=== PATIENT | female | born 1965 | race Caucasian/White ===

== ENCOUNTER 2021-08-08 07:45 | Emergency (ER) | payer OTHER, MEDICARE ==
[~2021-08-08] VITALS: Ht 160 cm; Wt 57.3 kg
[~2021-08-08 07:45] MED LIST: CARI-433 PO; DEXL60CA3 PO; KRATOM PO; LEMB5TAB PO; METO-384 PO; ONDA4TAB6 PO; PANT20TA18 PO
[2021-08-08] MEDS ORDERED: TRAM50TA2 PO (08:24)
== END 2021-08-08 08:58 | disposition home or self-care (01) ==
LOC: MERGE 07:47 → ER 07:47
DX: M25.511 Pain in right shoulder (principal); Z88.2 Allergy status to sulfonamides; Z79.899 Other long term (current) drug therapy
CPT/HCPCS: 99283

== ENCOUNTER 2021-08-12 07:14 | Emergency (ER) | payer OTHER, MEDICARE ==
[~2021-08-12] VITALS: Ht 160 cm; Wt 46.6 kg
[~2021-08-12 07:14] MED LIST changes: +TRAM50TA2 PO
[2021-08-12 08:21] LABS: BASOPHILS % (AUTO) 0.7 % (0-1); EOSINOPHILS # (AUTO) 0.2 X10'3 (0-0.9); EOSINOPHILS % (AUTO) 7.8 % (0-6); HEMATOCRIT 27.4 % (35.0-45.0); HEMOGLOBIN 9.5 g/dl (12.0-16.0); LYMPHOCYTES # (AUTO) 1.2 X10'3 (1.1-4.8); LYMPHOCYTES % (AUTO) 40.9 % (21-51); MEAN CORPUSCULAR HEMOGLOBIN 33.9 PG (27.0-31.0); MEAN CORPUSCULAR HGB CONC 34.5 g/dL (33.0-36.5); MEAN CORPUSCULAR VOLUME 98.2 FL (78-98); MEAN PLATELET VOLUME 7.4 FL (7.4-10.4); MONOCYTES # (AUTO) 0.3 X10'3 (0-0.9); MONOCYTES % (AUTO) 8.8 % (2-12); NEUTROPHILS # (AUTO) 1.3 X10'3 (1.8-7.7); NEUTROPHILS % (AUTO) 41.8 % (42-75); PLATELET COUNT 89 X10'3 (140-440); RED BLOOD COUNT 2.79 X10'6 (4.20-5.60); RED CELL DISTRIBUTION WIDTH 12.9 % (11.5-14.5)
[2021-08-12 08:27] LABS: D-DIMER 2.05 MG/L FEU (0-0.50)
[2021-08-12 08:38] LABS: ALANINE AMINOTRANSFERASE 37 U/L (12-78); ALBUMIN 2.2 G/DL (3.4-5.0); ALKALINE PHOSPHATASE 164 IU/L (46-116); ANION GAP 6 (8-16); ASPARTATE AMINO TRANSFERASE 83 U/L (10-37); BLOOD UREA NITROGEN 14 MG/DL (7-18); CALCIUM 8.4 MG/DL (8.5-10.1); CHLORIDE 103 MMOL/L (99-107); POTASSIUM 3.8 MMOL/L (3.5-5.1); SODIUM 134 MMOL/L (135-145); TOTAL CARBON DIOXIDE 25.4 MMOL/L (24-32); eGFR 57 ML/MIN
[2021-08-12 08:49] LABS: ALBUMIN/GLOBULIN RATIO 0.3 (1.1-1.5); GLUCOSE 93 MG/DL (70-104); TOTAL PROTEIN 8.8 G/DL (6.4-8.2)
[2021-08-12] MEDS ORDERED: iohexol 350MG/ML 100ml bottle IV ONE (09:53)
[2021-08-12 10:53] LABS: ANISOCYTOSIS 1+; PLATELET ESTIMATE DECREASED; TOTAL CELLS COUNTED 100
--- NOTE | 2021-08-12 11:12 | NUR ---
up to use restroom.
[2021-08-12] MEDS ORDERED: TRAM50TA2 PO (11:37)
[2021-08-12 11:49] VITALS: BP 127/72
== END 2021-08-12 11:55 | disposition home or self-care (01) ==
LOC: MERGE 07:14 → ER 07:14
DX: R07.89 Other chest pain (principal); R06.02 Shortness of breath; Z98.890 Other specified postprocedural states; Z72.89 Other problems related to lifestyle; Z88.2 Allergy status to sulfonamides; Z79.899 Other long term (current) drug therapy
CPT/HCPCS: 36415; 71045; 71250; 80053; 84145; 84484; 85007; 85025; 85379; 93005; 99285; Q9967

== ENCOUNTER 2021-09-16 09:15 | Day surgery (SDC) | payer OTHER, MEDICARE ==
[~2021-09-16] VITALS: Ht 160 cm; Wt 60.5 kg
[~2021-09-16 09:15] MED LIST changes: -TRAM50TA2 PO
[2021-09-16] MEDS ORDERED: albumin 25% 100mL bottle x 1 IV PRN (09:40)
[2021-09-16] MEDS ORDERED: normal saline 1000ml 1,000 ML IV PRN (09:40)
[2021-09-16 09:45] VITALS: BP 110/76
[2021-09-16] MEDS ORDERED: SUCR1TAB34 PO (09:55)
[2021-09-16] MEDS ORDERED: HYDR50CA5 PO (09:55)
[2021-09-16] MEDS ORDERED: DICL20GE TOP (09:55)
[2021-09-16] MEDS ORDERED: ESCI20TA16 PO (09:55)
[2021-09-16] MEDS ORDERED: ONDA-103 PO (09:55)
[2021-09-16] MEDS ORDERED: SPIR50TA PO (09:55)
[2021-09-16] MEDS ORDERED: TRAM50TA2 PO (09:55)
[2021-09-16] MEDS ORDERED: RISP1TAB98 PO (09:55)
[2021-09-16] MEDS ORDERED: ketorolac trometh. 30mg/ml inj. IM ONE (10:10)
--- NOTE | 2021-09-16 10:10 | NUR ---
Dylan Gray RN in to see patient and discuss procedure. Labs to be drawn prior to procedure. Patient requesting pain medication. Patient would also like for us to speak to [facility] regarding pain medication.
[2021-09-16] MEDS ORDERED: traMADol 50MG tablet PO ONE (10:15)
--- NOTE | 2021-09-16 10:35 | NUR ---
Called [facility] and spoke with Aspen CLOUD who spoke wtih Dr. Castillo. The doctor asked what pain medication the patient usually took. Patient told me she takes tramadol. Aspen CLOUD said that Dr. Castillo would be sending a prescription for pain medication to her pharmacy, [facility].
[2021-09-16 10:42] LABS: BASOPHILS % (AUTO) 0.9 % (0-1); EOSINOPHILS # (AUTO) 0.1 X10'3 (0-0.9); EOSINOPHILS % (AUTO) 3.7 % (0-6); HEMATOCRIT 26.3 % (35.0-45.0); LYMPHOCYTES # (AUTO) 0.7 X10'3 (1.1-4.8); LYMPHOCYTES % (AUTO) 37.6 % (21-51); MEAN CORPUSCULAR HEMOGLOBIN 31.1 PG (27.0-31.0); MEAN CORPUSCULAR HGB CONC 34.3 g/dL (33.0-36.5); MEAN CORPUSCULAR VOLUME 90.9 FL (78-98); MEAN PLATELET VOLUME 7.2 FL (7.4-10.4); MONOCYTES # (AUTO) 0.2 X10'3 (0-0.9); MONOCYTES % (AUTO) 10.8 % (2-12); NEUTROPHILS # (AUTO) 0.9 X10'3 (1.8-7.7); PLATELET COUNT 58 X10'3 (140-440)
[2021-09-16 10:59] LABS: PLATELET ESTIMATE DECREASED; TOTAL CELLS COUNTED 100
[2021-09-16 11:00] LABS: ANISOCYTOSIS 1+
--- NOTE | 2021-09-16 11:10 | NUR ---
Lab results back and Christiano Gray RN notified.
[2021-09-16 11:25] VITALS: BP 124/74
[2021-09-16 11:45] VITALS: BP 118/75
[2021-09-16 12:00] VITALS: BP 122/77
[2021-09-16 12:15] VITALS: BP 122/70
--- NOTE | 2021-09-16 12:35 | NUR ---
Reviewed discharge instructions with patient. All questions answered. Band-aid to right posterior back CDI. VSS. No complaints of worsening SOB or chest pain. Tramadol given earlier has helped, per patient. Her prescription from Dr. Castillo will be available tomorrow, per patient's daughter, d/t patient recently picking up a prescription a short time ago. Patient aware. Patient taken out to daughter's car in w/c. All belongings with patient on d/c.
== END 2021-09-16 12:35 | disposition home or self-care (01) ==
LOC: SSTAY O 09:15
PROVIDERS: ATTEND Preventive Medicine Aerospace Medicine
DX: J90 Pleural effusion, not elsewhere classified (principal); K70.10 Alcoholic hepatitis without ascites; K72.90 Hepatic failure, unspecified without coma; D69.6 Thrombocytopenia, unspecified; D68.9 Coagulation defect, unspecified; Z72.89 Other problems related to lifestyle; K74.60 Unspecified cirrhosis of liver; N18.6 End stage renal disease; M81.0 Age-related osteoporosis without current pathological fracture; Z98.890 Other specified postprocedural states; Z90.49 Acquired absence of other specified parts of digestive tract; Z88.2 Allergy status to sulfonamides; Z79.899 Other long term (current) drug therapy; F12.90 Cannabis use, unspecified, uncomplicated
CPT/HCPCS: 32555; 36415; 85007; 85025; 85610

== ENCOUNTER 2021-10-09 11:40 | Emergency (ER) | payer OTHER, MEDICARE ==
[~2021-10-09] VITALS: Ht 160 cm; Wt 56.8 kg
[~2021-10-09 11:40] MED LIST changes: -CARI-433 PO; -DEXL60CA3 PO; +DICL20GE TOP; +ESCI20TA16 PO; +HYDR50CA5 PO; -KRATOM PO; -LEMB5TAB PO; +ONDA-103 PO; -ONDA4TAB6 PO; +RISP1TAB98 PO; +SPIR50TA PO; +SUCR1TAB34 PO; +TRAM50TA2 PO
--- NOTE | 2021-10-09 12:25 | NUR ---
Patient states left upper back/chest pain that was previously intermittent is increasingly frequent and 7/10 pain; PA notified.
[2021-10-09 13:18] LABS: BASOPHILS % (AUTO) 0.8 % (0-1); EOSINOPHILS % (AUTO) 2.2 % (0-6); HEMATOCRIT 27.4 % (35.0-45.0); HEMOGLOBIN 9.2 g/dl (12.0-16.0); LYMPHOCYTES # (AUTO) 0.2 X10'3 (1.1-4.8); LYMPHOCYTES % (AUTO) 17.1 % (21-51); MEAN CORPUSCULAR HEMOGLOBIN 30.5 PG (27.0-31.0); MEAN CORPUSCULAR HGB CONC 33.6 g/dL (33.0-36.5); MEAN CORPUSCULAR VOLUME 90.9 FL (78-98); MEAN PLATELET VOLUME 6.9 FL (7.4-10.4); MONOCYTES # (AUTO) 0.2 X10'3 (0-0.9); MONOCYTES % (AUTO) 16.6 % (2-12); NEUTROPHILS # (AUTO) 0.6 X10'3 (1.8-7.7); NEUTROPHILS % (AUTO) 63.3 % (42-75); RED BLOOD COUNT 3.01 X10'6 (4.20-5.60); RED CELL DISTRIBUTION WIDTH 14.9 % (11.5-14.5)
[2021-10-09 13:46] LABS: ALANINE AMINOTRANSFERASE 31 U/L (12-78); ALBUMIN 2.6 G/DL (3.4-5.0); ALKALINE PHOSPHATASE 117 IU/L (46-116); ANION GAP 5 (8-16); ASPARTATE AMINO TRANSFERASE 73 U/L (10-37); BILIRUBIN,TOTAL 5.2 MG/DL (0.1-1.0); BLOOD UREA NITROGEN 12 MG/DL (7-18); BUN/CREATININE RATIO 11.4 (6.6-38.0); CALCIUM 8.5 MG/DL (8.5-10.1); CHLORIDE 100 MMOL/L (99-107); CREATININE 1.05 MG/DL (0.40-0.90); POTASSIUM 3.4 MMOL/L (3.5-5.1); SODIUM 134 MMOL/L (135-145); TOTAL CARBON DIOXIDE 28.7 MMOL/L (24-32); eGFR 54 ML/MIN
[2021-10-09 13:47] LABS: PLATELET COUNT 48 X10'3 (140-440)
[2021-10-09 14:01] LABS: ALBUMIN/GLOBULIN RATIO 0.5 (1.1-1.5); GLUCOSE 97 MG/DL (70-104); TOTAL PROTEIN 7.6 G/DL (6.4-8.2)
[2021-10-09] MEDS ORDERED: LIDOcaine 1% W/epiNEPHrine 1:100,000 20ml vial IJ ONE (14:15)
[2021-10-09 14:28] VITALS: BP 112/72
[2021-10-09 14:43] LABS: APTT 33 SECONDS (22-32)
[2021-10-09] MEDS ORDERED: fentaNYL/PF 50MCG/1 ML 2ML syringe IV ONE (15:05)
[2021-10-09] MEDS ORDERED: ondansetron/PF 4mg/2ml inj IV ONE (15:05)
[2021-10-09] MEDS ORDERED: CASIRIVIMAB/IMDEVIMAB inject. 10 ML in normal saline 100ml IV soln 100 ML IV ONE (15:30)
[2021-10-09] MEDS ORDERED: morphine 4 MG/ML inj SYRINge IV ONE (15:55)
== END 2021-10-09 17:57 | disposition home or self-care (01) ==
LOC: ER 11:41
DX: U07.1 COVID-19 (principal); J90 Pleural effusion, not elsewhere classified; Z88.2 Allergy status to sulfonamides; Z79.899 Other long term (current) drug therapy
CPT/HCPCS: 36415; 71045; 80053; 83605; 84145; 85025; 85610; 85730; 87040; 87635; 93005; 96374; 96375; 99285; C9803; J2270; J2405; J3010; J3490; M0243; Q0244

== ENCOUNTER 2021-10-28 08:08 | Day surgery (SDC) | payer OTHER, MEDICARE ==
[~2021-10-28] VITALS: Ht 160 cm; Wt 64.0 kg
[~2021-10-28 08:08] MED LIST changes: +BUPIVACAINE liposomal/PF 13.3 MG/ML vial IM ONE; +BUPIVAcaine/PF 2.5mg/ml (0.25%) 10ml vial ONE
[2021-10-28 08:30] VITALS: BP 94/61
[2021-10-28] MEDS ORDERED: albumin 25% 100mL bottle x 1 IV PRN (08:40)
[2021-10-28] MEDS ORDERED: LIDOcaine 1% 30ml preserv. free vial IJ STA (08:45)
[2021-10-28] MEDS ORDERED: FURO-149 PO (08:54)
[2021-10-28 09:48] LABS: BASOPHILS % (AUTO) 0.6 % (0-1); EOSINOPHILS # (AUTO) 0.1 X10'3 (0-0.9); EOSINOPHILS % (AUTO) 4.6 % (0-6); HEMATOCRIT 25.4 % (35.0-45.0); HEMOGLOBIN 8.3 g/dl (12.0-16.0); LYMPHOCYTES # (AUTO) 0.6 X10'3 (1.1-4.8); LYMPHOCYTES % (AUTO) 37.1 % (21-51); MEAN CORPUSCULAR HEMOGLOBIN 29.7 PG (27.0-31.0); MEAN CORPUSCULAR HGB CONC 32.7 g/dL (33.0-36.5); MEAN CORPUSCULAR VOLUME 90.8 FL (78-98); MEAN PLATELET VOLUME 7.3 FL (7.4-10.4); MONOCYTES # (AUTO) 0.2 X10'3 (0-0.9); MONOCYTES % (AUTO) 10.9 % (2-12); NEUTROPHILS # (AUTO) 0.8 X10'3 (1.8-7.7); NEUTROPHILS % (AUTO) 46.8 % (42-75); PLATELET COUNT 73 X10'3 (140-440); RED CELL DISTRIBUTION WIDTH 16.1 % (11.5-14.5); WHITE BLOOD COUNT 1.7 X10'3 (4.5-11.0)
[2021-10-28 10:31] VITALS: BP 110/73
[2021-10-28 10:33] LABS: ANISOCYTOSIS 1+; PLATELET ESTIMATE DECREASED; TOTAL CELLS COUNTED 100
[2021-10-28 10:45] VITALS: BP_SYST 110; BP_SYST 95; BP_DIAS 54; BP_DIAS 73
[2021-10-28 11:01] VITALS: BP 113/54
[2021-10-28 11:13] VITALS: BP 107/61
--- NOTE | 2021-10-28 14:00 | NUR ---
Dr. Castillo, primary physician was called and orders received for body fluids and blood sent to lab for testing. Addendum: 10/28/21 at 1640 by Yvan Bull RN Amended: Links added.
[2021-10-28 14:44] LABS: ALANINE AMINOTRANSFERASE 30 U/L (12-78); ALBUMIN 2.3 G/DL (3.4-5.0); ALBUMIN/GLOBULIN RATIO 0.5 (1.1-1.5); ALKALINE PHOSPHATASE 158 IU/L (46-116); ANION GAP 9 (8-16); ASPARTATE AMINO TRANSFERASE 55 U/L (10-37); BLOOD UREA NITROGEN 22 MG/DL (7-18); CALCIUM 7.6 MG/DL (8.5-10.1); CHLORIDE 101 MMOL/L (99-107); CREATININE 1.22 MG/DL (0.40-0.90); GLUCOSE 79 MG/DL (70-104); LACTATE DEHYDROGENASE 140 U/L (81-234); POTASSIUM 3.9 MMOL/L (3.5-5.1); SODIUM 138 MMOL/L (135-145); TOTAL CARBON DIOXIDE 28.3 MMOL/L (24-32); TOTAL PROTEIN 6.9 G/DL (6.4-8.2); eGFR 46 ML/MIN
[2021-10-28 15:29] LABS: AMYLASE,BODY FLUID 40 U/L; GLUCOSE,BODY FLUID 106 MG/DL; LDH,BODY FLUID 29 U/L; TRIGLYCERIDES,BODY FLUID 37 MG/DL
[2021-10-28 15:30] LABS: TOTAL PROTEIN,BODY FLUID < 2.0 G/DL
[2021-10-28 16:05] LABS: BFAPPEAR CLEAR
[2021-10-28 16:08] LABS: BF RBC COUNT 235 /CU MM; BF WBC COUNT 104 /CU MM (0-1000); BFCOLOR YELLOW; BFVOLUME 50 ML; LYMPHOCYTES,BODY FLUID 86 %; MONOCYTES,BODY FLUID 14 %; NEUTROPHILS,BODY FLUID 0 %
== END 2021-10-28 11:15 | disposition home or self-care (01) ==
LOC: SSTAY O 08:08
PROVIDERS: ATTEND Radiology Vascular & Interventional Radiology
DX: J90 Pleural effusion, not elsewhere classified (principal); D69.6 Thrombocytopenia, unspecified; D68.9 Coagulation defect, unspecified; K74.60 Unspecified cirrhosis of liver; K72.10 Chronic hepatic failure without coma; N18.6 End stage renal disease; K70.10 Alcoholic hepatitis without ascites; Z86.16 Personal history of COVID-19; Z90.49 Acquired absence of other specified parts of digestive tract; Z98.890 Other specified postprocedural states; Z72.89 Other problems related to lifestyle; F12.90 Cannabis use, unspecified, uncomplicated; Z88.2 Allergy status to sulfonamides; Z79.899 Other long term (current) drug therapy
CPT/HCPCS: 32555; 36415; 71045; 80053; 82150; 82570; 82945; 83615; 84157; 84478; 85025; 85610; 87070; 87075; 89051; C9290; J3490; 85007

== ENCOUNTER 2021-11-19 07:56 | Day surgery (SDC) | payer OTHER, MEDICARE ==
[~2021-11-19] VITALS: Ht 160 cm; Wt 62.7 kg
[~2021-11-19 07:56] MED LIST changes: -BUPIVACAINE liposomal/PF 13.3 MG/ML vial IM ONE; -BUPIVAcaine/PF 2.5mg/ml (0.25%) 10ml vial ONE; -DICL20GE TOP; +FURO-149 PO
[2021-11-19] MEDS ORDERED: albumin 25% 100mL bottle x 1 IV PRN (08:15)
[2021-11-19 08:16] VITALS: BP 124/82
[2021-11-19] MEDS ORDERED: OLAN10TA3 PO (08:19)
[2021-11-19] MEDS ORDERED: FOLI0.4T6 PO (08:19)
[2021-11-19] MEDS ORDERED: Vitamin B-1 PO (08:21)
[2021-11-19 08:43] LABS: BASOPHILS % (AUTO) 0.9 % (0-1); EOSINOPHILS # (AUTO) 0.1 X10'3 (0-0.9); EOSINOPHILS % (AUTO) 5.6 % (0-6); HEMOGLOBIN 9.4 g/dl (12.0-16.0); LYMPHOCYTES # (AUTO) 0.8 X10'3 (1.1-4.8); LYMPHOCYTES % (AUTO) 36.2 % (21-51); MEAN CORPUSCULAR HEMOGLOBIN 28.8 PG (27.0-31.0); MEAN CORPUSCULAR HGB CONC 32.3 g/dL (33.0-36.5); MEAN CORPUSCULAR VOLUME 88.9 FL (78-98); MEAN PLATELET VOLUME 7.4 FL (7.4-10.4); MONOCYTES # (AUTO) 0.2 X10'3 (0-0.9); MONOCYTES % (AUTO) 10.1 % (2-12); NEUTROPHILS # (AUTO) 1.1 X10'3 (1.8-7.7); NEUTROPHILS % (AUTO) 47.2 % (42-75); PLATELET COUNT 85 X10'3 (140-440); RED BLOOD COUNT 3.26 X10'6 (4.20-5.60); RED CELL DISTRIBUTION WIDTH 16.6 % (11.5-14.5); WHITE BLOOD COUNT 2.2 X10'3 (4.5-11.0)
[2021-11-19 09:21] VITALS: BP 122/82
[2021-11-19 09:25] LABS: PLATELET ESTIMATE DECREASED; TOTAL CELLS COUNTED 100
[2021-11-19 09:26] LABS: ANISOCYTOSIS 1+; POLYCHROMASIA 1+; TEAR DROP CELLS 1+
[2021-11-19 09:27] LABS: HYPOCHROMASIA 1+
[2021-11-19 09:35] VITALS: BP 115/57
[2021-11-19 09:50] VITALS: BP 114/66
[2021-11-19 10:24] VITALS: BP 114/53
== END 2021-11-19 10:32 | disposition home or self-care (01) ==
LOC: SSTAY O 07:56
PROVIDERS: ATTEND Radiology Vascular & Interventional Radiology
DX: J90 Pleural effusion, not elsewhere classified (principal); D69.6 Thrombocytopenia, unspecified; D68.9 Coagulation defect, unspecified; N18.6 End stage renal disease; M81.0 Age-related osteoporosis without current pathological fracture; K70.10 Alcoholic hepatitis without ascites; Z88.2 Allergy status to sulfonamides; K74.60 Unspecified cirrhosis of liver; Z90.49 Acquired absence of other specified parts of digestive tract; Z98.890 Other specified postprocedural states; F12.90 Cannabis use, unspecified, uncomplicated; Z79.899 Other long term (current) drug therapy; Z72.89 Other problems related to lifestyle
CPT/HCPCS: 32555; 85007; 85025; 85610

== ENCOUNTER 2021-12-23 07:25 | Day surgery (SDC) | payer OTHER, MEDICARE ==
[~2021-12-23] VITALS: Ht 160 cm; Wt 67.5 kg
[~2021-12-23 07:25] MED LIST changes: +FOLI0.4T6 PO; +OLAN10TA3 PO; -RISP1TAB98 PO; +Vitamin B-1 PO
[2021-12-23] MEDS ORDERED: albumin 25% 100mL bottle x 1 IV PRN (07:40)
[2021-12-23 08:00] VITALS: BP 109/72
[2021-12-23] MEDS ORDERED: LIDOcaine 1%/PF 5ML 10 MG/ML VIAL IJ ONE (08:20)
[2021-12-23 08:43] LABS: BASOPHILS % (AUTO) 0.7 % (0-1); EOSINOPHILS # (AUTO) 0.1 X10'3 (0-0.9); EOSINOPHILS % (AUTO) 2.6 % (0-6); HEMATOCRIT 27.2 % (35.0-45.0); HEMOGLOBIN 8.8 g/dl (12.0-16.0); LYMPHOCYTES # (AUTO) 0.8 X10'3 (1.1-4.8); LYMPHOCYTES % (AUTO) 34.7 % (21-51); MEAN CORPUSCULAR HEMOGLOBIN 29.4 PG (27.0-31.0); MEAN CORPUSCULAR HGB CONC 32.3 g/dL (33.0-36.5); MEAN PLATELET VOLUME 7.4 FL (7.4-10.4); MONOCYTES # (AUTO) 0.3 X10'3 (0-0.9); NEUTROPHILS # (AUTO) 1.2 X10'3 (1.8-7.7); PLATELET COUNT 80 X10'3 (140-440); RED BLOOD COUNT 2.98 X10'6 (4.20-5.60); RED CELL DISTRIBUTION WIDTH 17.9 % (11.5-14.5); WHITE BLOOD COUNT 2.3 X10'3 (4.5-11.0)
[2021-12-23 09:03] LABS: ANISOCYTOSIS 1+; PLATELET ESTIMATE DECREASED; POIKILOCYTOSIS FEW; TOTAL CELLS COUNTED 100
[2021-12-23 09:45] VITALS: BP 119/64
[2021-12-23 10:00] VITALS: BP 118/80
[2021-12-23 10:15] VITALS: BP 100/60
[2021-12-23 10:30] VITALS: BP 105/64
[2021-12-24] MEDS ORDERED: HYDR-3973 PO (09:31)
[2021-12-24] MEDS ORDERED: HYDR-3972 PO (11:54)
== END 2021-12-23 10:30 | disposition home or self-care (01) ==
LOC: SSTAY O 07:25
PROVIDERS: ATTEND Preventive Medicine Aerospace Medicine
DX: J90 Pleural effusion, not elsewhere classified (principal); D69.6 Thrombocytopenia, unspecified; D68.9 Coagulation defect, unspecified; K74.60 Unspecified cirrhosis of liver; M81.0 Age-related osteoporosis without current pathological fracture; K70.10 Alcoholic hepatitis without ascites; K72.10 Chronic hepatic failure without coma; F12.90 Cannabis use, unspecified, uncomplicated; Z90.49 Acquired absence of other specified parts of digestive tract; Z98.890 Other specified postprocedural states; Z88.2 Allergy status to sulfonamides; Z72.89 Other problems related to lifestyle; Z79.899 Other long term (current) drug therapy
CPT/HCPCS: 32555; 36415; 85025; 85610; J3490; 85007

== ENCOUNTER 2021-12-24 08:35 | Emergency (ER) | payer MEDICARE, OTHER ==
[~2021-12-24] VITALS: Ht 160 cm; Wt 65.9 kg
[2021-12-24] MEDS ORDERED: HYDR-3973 PO (09:31)
[2021-12-24 10:00] VITALS: BP 100/71
[2021-12-24] MEDS ORDERED: HYDR-3972 PO (11:54)
== END 2021-12-24 10:02 | disposition home or self-care (01) ==
LOC: ER 08:37
DX: R07.81 Pleurodynia (principal); K74.60 Unspecified cirrhosis of liver; J90 Pleural effusion, not elsewhere classified; Z98.890 Other specified postprocedural states; Z88.2 Allergy status to sulfonamides; Z79.899 Other long term (current) drug therapy
CPT/HCPCS: 71045; 99283

== ENCOUNTER 2022-01-01 23:40 | Inpatient (IN) | payer BC, MEDICARE, OTHER ==
[~2022-01-01] VITALS: Ht 160 cm; Wt 63.3 kg
[~2022-01-01 23:40] MED LIST changes: +HYDR-3973 PO
[2022-01-02] VITALS (18 sets, daily range): BP systolic 84–109; BP diastolic 48–69
[2022-01-02] MEDS ORDERED: normal saline 1000ml 1,000 ML IV ONE (00:35)
[2022-01-02 01:13] LABS: CLARITY,URINE CLOUDY (Clear); COLOR,URINE YELLOW (Yellow); GLUCOSE, URINE NEGATIVE (Neg); KETONES,URINE 15 mg/dl (Neg); LEUKOCYTE ESTERASE ,URINE MODERATE (Neg); OCCULT BLOOD,URINE MODERATE (Neg); PROTEIN,URINE 100 mg/dl (Neg)
[2022-01-02] MEDS ORDERED: iohexol 300mg/ml 100ml inj. ONE (01:13)
--- NOTE | 2022-01-02 01:13 | NUR ---
report given to Harper
[2022-01-02 01:18] LABS: BASOPHILS % (AUTO) 0.2 % (0-1); EOSINOPHILS % (AUTO) 1.3 % (0-6); HEMATOCRIT 24.2 % (35.0-45.0); HEMOGLOBIN 7.8 g/dl (12.0-16.0); LYMPHOCYTES % (AUTO) 1.2 % (21-51); MEAN CORPUSCULAR HGB CONC 32.2 g/dL (33.0-36.5); MEAN CORPUSCULAR VOLUME 93.2 FL (78-98); MEAN PLATELET VOLUME 7.4 FL (7.4-10.4); MONOCYTES # (AUTO) 0.2 X10'3 (0-0.9); MONOCYTES % (AUTO) 7.3 % (2-12); NEUTROPHILS # (AUTO) 2.9 X10'3 (1.8-7.7); PLATELET COUNT 51 X10'3 (140-440); RED CELL DISTRIBUTION WIDTH 17.7 % (11.5-14.5); WHITE BLOOD COUNT 3.2 X10'3 (4.5-11.0)
[2022-01-02 01:21] LABS: UA COLLECTION TYPE NON-SPECIFIED
[2022-01-02 01:22] LABS: NITRITES, URINE NEGATIVE (Neg)
[2022-01-02 01:23] LABS: BACTERIA,URINE 1+ /HPF (Neg); MUCUS STRANDS FEW /LPF (Neg); SQUAMOUS EPITHELIAL CELL,UR MODERATE /LPF (FEW); WBC,URINE 30-50 /HPF (0-4)
[2022-01-02 01:25] LABS: APTT 34 SECONDS (22-32)
[2022-01-02 01:30] LABS: ALANINE AMINOTRANSFERASE 22 U/L (12-78); ALBUMIN/GLOBULIN RATIO 0.5 (1.1-1.5); ALKALINE PHOSPHATASE 79 IU/L (46-116); ANION GAP 11 (8-16); ASPARTATE AMINO TRANSFERASE 61 U/L (10-37); BILIRUBIN,TOTAL 3.4 MG/DL (0.1-1.0); BLOOD UREA NITROGEN 35 MG/DL (7-18); BUN/CREATININE RATIO 13.7 (6.6-38.0); CALCIUM 7.7 MG/DL (8.5-10.1); CHLORIDE 100 MMOL/L (99-107); CREATININE 2.55 MG/DL (0.40-0.90); GLUCOSE 93 MG/DL (70-104); POTASSIUM 4.8 MMOL/L (3.5-5.1); SODIUM 131 MMOL/L (135-145); TOTAL CARBON DIOXIDE 20.3 MMOL/L (24-32); TOTAL PROTEIN 6.1 G/DL (6.4-8.2); eGFR 19 ML/MIN
[2022-01-02] MEDS ORDERED: morphine 4 MG/ML inj SYRINge IV ONE (01:30)
[2022-01-02] MEDS ORDERED: ondansetron/PF 4mg/2ml inj IV ONE (01:30)
[2022-01-02] MEDS ORDERED: cefTRIAXone 1g/NS 100ml IVPB 100 ML IV ONE (01:55)
[2022-01-02] MEDS ORDERED: albumin (human) 25% 100 ML IV solution IV ONE ×3 (04:05→04:45)
[2022-01-02] MEDS ORDERED: fentaNYL/PF 50MCG/1 ML 2ML syringe IV ONE (04:35)
[2022-01-02] MEDS ORDERED: potassium Cl 20 mEq SR tablet PO PRN ×2 (04:35)
[2022-01-02] MEDS ORDERED: NOREPINEPHRINE BITARTRATE/D5W 250 ML IV PRN (05:30)
[2022-01-02] MEDS ORDERED: NORepinephrine 8mg/ 250ml NS 250 ML IV PRN (05:35)
[2022-01-02] MEDS: morphine 4 MG/ML inj SYRINge IV PRN (05:49)
[2022-01-02] MEDS ORDERED: pantoprazole 40MG/NS 100ML BAG 100 ML IV ONE (06:00)
[2022-01-02] MEDS: normal saline 1000ml 1,000 ML IV SCH ×3 (06:55→19:51)
[2022-01-02] MEDS: K and/or MAG REPLACEMENT MC SCH (06:56)
--- NOTE | 2022-01-02 07:00 | NUR ---
Pt is awake, alert, and c/o back pain. Decreased lung sound R posterior. On Levophed gtt, protonix gtt, and NS @ 75ml/hour. Whitehead draining orange/brown urine.
--- NOTE | 2022-01-02 07:17 | NUR ---
Report given to AI Brody in ICU.
[2022-01-02] MEDS ORDERED: heparin, porcine 5000 units/ml vial SQ SCH (08:00)
[2022-01-02] MEDS ORDERED: albumin (Human) 5% 250ml 500 ML IV ONE (08:25)
[2022-01-02] MEDS ORDERED: albumin (Human) 5% 250ml 250 ML IV ONE ×2 (08:25)
[2022-01-02] MEDS: ondansetron/PF 4mg/2ml inj IV PRN (09:43)
[2022-01-02] MEDS: morphine 2 MG/ML inj. syringe IV PRN ×2 (10:56→19:46)
[2022-01-02] MEDS ORDERED: NORepinephrine 8mg/ 250ml NS 250 ML IV ONE (15:14)
[2022-01-02] MEDS ORDERED: THIA100T66 PO (15:50)
[2022-01-02] MEDS ORDERED: SPIR100T5 PO (15:52)
[2022-01-02] MEDS ORDERED: OLAN5TAB75 PO (15:52)
[2022-01-02] MEDS ORDERED: ALBU17AE26 PO (15:52)
[2022-01-02] MEDS ORDERED: MAGN400T56 PO (15:52)
--- NOTE | 2022-01-02 18:35 | NUR ---
Received report on a 56 year old female admitted with low blood pressure, etoh, epigastric pain,vomiting and fever. Pt has a history of sepsis, and failed hernia repair. CT showed enlarged liver and spleen, cirrhotic liver, hiatal hernia, portal Hypertension, abdominal varices and splenomegaly. Pt is resting in bed on a Levophed drip to keep MAP greater then 60, Whitehead catheter in place to gravity. Pt denies feelings of SOB, or nausea, no s/sx of bleeding, pt denies numbness and tingling pt able to speak in complete sentences without difficulties. Call placed to Dr Ramirez regarding pt diet, plt levels and restarting pt sleep medication. new orders received to hold tonight dose of Hepin, pt to remain NPO, amylase and lipase levels ordered for in the morning and Dr Ramirez does not what her sleeping medication restarted. Pt up to bedside commode with assistance returned to bed without difficulties. Pt remains in sinus, distal pulses palatable bilateral, pt medicated for pain as needed
[2022-01-02] MEDS ORDERED: sucralfate 1gm/10ml UD suspension PO ONE (20:00)
[2022-01-02] MEDS ORDERED: sucralfate 1 gm tablet PO ONE (20:00)
[2022-01-03] VITALS (23 sets, daily range): BP systolic 88–118; BP diastolic 45–67
[2022-01-03] MEDS: morphine 4 MG/ML inj SYRINge IV PRN (00:08)
--- NOTE | 2022-01-03 00:30 | NUR ---
no changes in status noted,
[2022-01-03] MEDS ORDERED: cefTRIAXone 1g/NS 100ml IVPB 100 ML IV SCH (01:00)
[2022-01-03] MEDS: NORepinephrine 8mg/ 250ml NS 250 ML IV SCH ×2 (01:14→22:14)
[2022-01-03 01:49] LABS: BASOPHILS % (AUTO) 0.2 % (0-1); EOSINOPHILS # (AUTO) 0.2 X10'3 (0-0.9); EOSINOPHILS % (AUTO) 3.4 % (0-6); HEMATOCRIT 24.3 % (35.0-45.0); HEMOGLOBIN 7.9 g/dl (12.0-16.0); LYMPHOCYTES # (AUTO) 0.1 X10'3 (1.1-4.8); LYMPHOCYTES % (AUTO) 2.5 % (21-51); MEAN CORPUSCULAR HEMOGLOBIN 30.5 PG (27.0-31.0); MEAN CORPUSCULAR HGB CONC 32.4 g/dL (33.0-36.5); MEAN CORPUSCULAR VOLUME 94.2 FL (78-98); MEAN PLATELET VOLUME 8.5 FL (7.4-10.4); MONOCYTES # (AUTO) 0.3 X10'3 (0-0.9); MONOCYTES % (AUTO) 5.2 % (2-12); NEUTROPHILS # (AUTO) 5.4 X10'3 (1.8-7.7); NEUTROPHILS % (AUTO) 88.7 % (42-75); PLATELET COUNT 64 X10'3 (140-440); RED BLOOD COUNT 2.58 X10'6 (4.20-5.60); RED CELL DISTRIBUTION WIDTH 18.2 % (11.5-14.5); WHITE BLOOD COUNT 6.1 X10'3 (4.5-11.0)
[2022-01-03 01:55] LABS: ALBUMIN 2.7 G/DL (3.4-5.0); AMYLASE 38 U/L (25-115); ANION GAP 9 (8-16); BLOOD UREA NITROGEN 47 MG/DL (7-18); BUN/CREATININE RATIO 20.8 (6.6-38.0); CALCIUM 7.2 MG/DL (8.5-10.1); CHLORIDE 103 MMOL/L (99-107); CREATININE 2.26 MG/DL (0.40-0.90); GLUCOSE 84 MG/DL (70-104); LIPASE < 50 U/L (73-393); POTASSIUM 4.6 MMOL/L (3.5-5.1); SODIUM 133 MMOL/L (135-145); TOTAL CARBON DIOXIDE 20.6 MMOL/L (24-32); eGFR 22 ML/MIN
--- NOTE | 2022-01-03 06:09 | NUR ---
report given to rec rn plan of care reviewed
[2022-01-03] MEDS: morphine 2 MG/ML inj. syringe IV PRN (07:08)
[2022-01-03] MEDS: multivitamins, therapeutics tablet PO SCH (08:00)
[2022-01-03] MEDS: K and/or MAG REPLACEMENT MC SCH (08:00)
[2022-01-03] MEDS: pantoprazole 40MG/NS 100ML BAG 100 ML IV SCH (08:34)
[2022-01-03] MEDS: thiamine 100mg tablet PO SCH (08:58)
[2022-01-03] MEDS ORDERED: non-formulary drug (Ondansetron HCl 1 TAB) PO PRN (11:25)
[2022-01-03] MEDS ORDERED: albuterol 2.5 MG/3 ML nebule NEB PRN (11:25)
[2022-01-03] MEDS: metoprolol succinate 25mg (24-HOUR) SR. Tablet PO SCH (11:31)
[2022-01-03] MEDS: furosemide 40mg tablet PO SCH (11:32)
--- NOTE | 2022-01-03 11:38 | NUR ---
Initial: Pt admitted w/ nausea/vomiting and UTI per MD Pt w/ hx of EtOH, cirrhosis and chronic pancreatitis per MD at rounds. MD states pt to start on on clear liquids and advance as tolerated to low fat diet, and no need for pancreatic enzymes at this time. LBM 4/2. Will monitor need for ONS pending diet advancement and PO trends. Recs: 1. Advance as tolerated to low fat diet per MD 2. Monitor need for ONS pending PO trends 3. Routine thiamine, folic acid, MVI for EtOH hx 4. Bowel care per rx 5. Scaled wts Addendum: 01/03/22 at [address] Amended: Links added.
[2022-01-03] MEDS: ESCITALOPRAM OXALATE 5 MG TABLET PO SCH (13:39)
[2022-01-03] MEDS: spironolactone 25 MG tablet PO SCH (13:41)
[2022-01-03] MEDS: folic acid 1mg tablet PO SCH (13:41)
[2022-01-03] MEDS: piperacillin/tazo 3.375gm/50ml 50 ML IV SCH (13:41)
[2022-01-03] MEDS: oxyCODONE/APAP 5-325mg tablet PO PRN ×2 (13:48→21:22)
--- NOTE | 2022-01-03 15:37 | NUR ---
Report given to AI Bhandari; transferred to U
--- NOTE | 2022-01-03 18:30 | NUR ---
Patient in room ICU 2044. I have received report from day shift RN and had the opportunity to ask questions and assume patient care.
[2022-01-03] MEDS: magnesium oxide 400mg tablet PO SCH ×2 (20:00→22:06)
[2022-01-03] MEDS: ondansetron/PF 4mg/2ml inj IV PRN (20:24)
--- NOTE | 2022-01-03 20:24 | NUR ---
Titrating Levophed down as tolerated. Ondansetron given for nausea per patient statement.
[2022-01-03] MEDS: normal saline 1000ml 1,000 ML IV SCH (21:13)
[2022-01-03] MEDS: OLANZAPINE 5 MG TABLET PO SCH (21:15)
[2022-01-03] MEDS: hydrOXYzine 25 MG tablet PO PRN (21:21)
[2022-01-04] VITALS (18 sets, daily range): BP systolic 92–124; BP diastolic 36–74
[2022-01-04] MEDS: piperacillin/tazo 3.375gm/50ml 50 ML IV SCH ×4 (00:06→23:12)
[2022-01-04] MEDS: morphine 2 MG/ML inj. syringe IV PRN (00:07)
--- NOTE | 2022-01-04 01:40 | NUR ---
Patient's blood sugar noted to be 66 on am lab result. Gave patient a jello and a popsicle per patient request.
[2022-01-04] MEDS: hydrOXYzine 25 MG tablet PO PRN (02:02)
[2022-01-04 02:16] LABS: ALBUMIN 2.3 G/DL (3.4-5.0); ANION GAP 10 (8-16); BLOOD UREA NITROGEN 35 MG/DL (7-18); BUN/CREATININE RATIO 21.3 (6.6-38.0); CALCIUM 7.3 MG/DL (8.5-10.1); CHLORIDE 106 MMOL/L (99-107); CREATININE 1.64 MG/DL (0.40-0.90); GLUCOSE 66 MG/DL (70-104); POTASSIUM 4.4 MMOL/L (3.5-5.1); SODIUM 136 MMOL/L (135-145); TOTAL CARBON DIOXIDE 20.1 MMOL/L (24-32); eGFR 32 ML/MIN
[2022-01-04 02:17] LABS: BASOPHILS % (AUTO) 0.5 % (0-1); EOSINOPHILS # (AUTO) 0.1 X10'3 (0-0.9); EOSINOPHILS % (AUTO) 4.8 % (0-6); HEMATOCRIT 23.9 % (35.0-45.0); HEMOGLOBIN 7.6 g/dl (12.0-16.0); LYMPHOCYTES # (AUTO) 0.3 X10'3 (1.1-4.8); LYMPHOCYTES % (AUTO) 11.1 % (21-51); MEAN CORPUSCULAR HEMOGLOBIN 29.5 PG (27.0-31.0); MEAN CORPUSCULAR HGB CONC 31.8 g/dL (33.0-36.5); MEAN CORPUSCULAR VOLUME 92.6 FL (78-98); MEAN PLATELET VOLUME 7.3 FL (7.4-10.4); MONOCYTES # (AUTO) 0.2 X10'3 (0-0.9); MONOCYTES % (AUTO) 6.4 % (2-12); NEUTROPHILS # (AUTO) 2.3 X10'3 (1.8-7.7); NEUTROPHILS % (AUTO) 77.2 % (42-75); RED BLOOD COUNT 2.58 X10'6 (4.20-5.60); RED CELL DISTRIBUTION WIDTH 18.5 % (11.5-14.5)
[2022-01-04 02:23] LABS: PLATELET COUNT 46 X10'3 (140-440)
--- NOTE | 2022-01-04 02:34 | NUR ---
Dr. Stone notified of patient's current labs,including platelet count of 46. Vital signs stable, Levophed off since 2200. No new orders for critical value. Made MD aware of patient's anxiety unrelieved by patient's current med regimen. Orders received.
[2022-01-04] MEDS: LORazepam 2 mg/ml vial IV PRN ×3 (03:47→23:12)
[2022-01-04 04:08] LABS: ANISOCYTOSIS 2+; PLATELET ESTIMATE DECREASED; TOTAL CELLS COUNTED 100
[2022-01-04 04:09] LABS: POLYCHROMASIA 1+; TEAR DROP CELLS FEW
--- NOTE | 2022-01-04 06:30 | NUR ---
Patient in room ICU 2044. I have received report from Marilou CLOUD and had the opportunity to ask questions and assume patient care. Pt alert to voice, mild confusion, unsure of location or date. pupils 2mm, equal reactive. safety measures in place. safety education completed.
--- NOTE | 2022-01-04 06:30 | NUR ---
Problems reprioritized. Patient report given, questions answered & plan of care reviewed with Suzy CLOUD.
[2022-01-04] MEDS: folic acid 1mg tablet PO SCH (07:59)
[2022-01-04] MEDS: ESCITALOPRAM OXALATE 5 MG TABLET PO SCH (07:59)
[2022-01-04] MEDS: multivitamins, therapeutics tablet PO SCH (07:59)
[2022-01-04] MEDS: metoprolol succinate 25mg (24-HOUR) SR. Tablet PO SCH (07:59)
[2022-01-04] MEDS: pantoprazole 40MG/NS 100ML BAG 100 ML IV SCH (07:59)
[2022-01-04] MEDS ORDERED: thiamine 100mg tablet PO SCH (08:00)
[2022-01-04] MEDS: thiamine 100mg tablet PO SCH (08:00)
[2022-01-04] MEDS: spironolactone 25 MG tablet PO SCH (08:00)
[2022-01-04] MEDS ORDERED: folic acid 0.4mg tablet PO SCH (08:00)
[2022-01-04] MEDS: magnesium oxide 400mg tablet PO SCH ×2 (08:00→19:05)
[2022-01-04] MEDS: furosemide 40mg tablet PO SCH (08:00)
[2022-01-04] MEDS: K and/or MAG REPLACEMENT MC SCH (08:02)
--- NOTE | 2022-01-04 08:43 | NUR ---
Dr. Salas to see pt new order to stop fluids. ok to hold spironolactone and lasix for now.
--- NOTE | 2022-01-04 15:11 | NUR ---
Central Line to right groin discontinued. tip intact. antony catheter discontinued at 1430 d/t pt no longer requiring hourly I&O for critically ill. tip intact. p.o fluids encouraged.
--- NOTE | 2022-01-04 16:01 | NUR ---
Pt voided post antony cath removal. Report called to Floridalma CLOUD on PCU. all questions answered. pt going to PCU 3023C per Dr. Saini order, without tele per Dr. Shen
--- NOTE | 2022-01-04 16:15 | NUR ---
Patient in room PCU 3023. I have received report from AI ROBLES, and had the opportunity to ask questions and assume patient care.
--- NOTE | 2022-01-04 16:16 | NUR ---
pt transferred without incident
--- NOTE | 2022-01-04 18:33 | NUR ---
Patient in room PCU 3018. I have received report from AI BERNARD, and had the opportunity to ask questions and assume patient care.
[2022-01-04] MEDS: OLANZAPINE 5 MG TABLET PO SCH (21:16)
[2022-01-04] MEDS: oxyCODONE/APAP 5-325mg tablet PO PRN (21:17)
--- NOTE | 2022-01-04 23:18 | NUR ---
i discarted hernan matthews when I wasted partial dose with rip Beauchamp. so I was not able to scan at the time of administration.
[2022-01-05 02:00] VITALS: BP 121/65
[2022-01-05] MEDS: oxyCODONE/APAP 5-325mg tablet PO PRN (03:15)
[2022-01-05 06:00] VITALS: BP 123/74
--- NOTE | 2022-01-05 06:17 | NUR ---
Problems reprioritized. Patient report given, questions answered & plan of care reviewed with AI ZUNIGA.
[2022-01-05 06:23] LABS: BASOPHILS % (AUTO) 0.3 % (0-1); EOSINOPHILS # (AUTO) 0.2 X10'3 (0-0.9); EOSINOPHILS % (AUTO) 6.6 % (0-6); HEMOGLOBIN 8.4 g/dl (12.0-16.0); LYMPHOCYTES # (AUTO) 0.8 X10'3 (1.1-4.8); LYMPHOCYTES % (AUTO) 22.9 % (21-51); MEAN CORPUSCULAR HEMOGLOBIN 29.4 PG (27.0-31.0); MEAN CORPUSCULAR HGB CONC 32.2 g/dL (33.0-36.5); MEAN CORPUSCULAR VOLUME 91.2 FL (78-98); MEAN PLATELET VOLUME 7.5 FL (7.4-10.4); MONOCYTES # (AUTO) 0.4 X10'3 (0-0.9); MONOCYTES % (AUTO) 12.1 % (2-12); NEUTROPHILS # (AUTO) 1.9 X10'3 (1.8-7.7); NEUTROPHILS % (AUTO) 58.1 % (42-75); RED BLOOD COUNT 2.85 X10'6 (4.20-5.60); RED CELL DISTRIBUTION WIDTH 18.3 % (11.5-14.5); WHITE BLOOD COUNT 3.3 X10'3 (4.5-11.0)
[2022-01-05 06:29] LABS: ALBUMIN 2.3 G/DL (3.4-5.0); ANION GAP 9 (8-16); BLOOD UREA NITROGEN 22 MG/DL (7-18); BUN/CREATININE RATIO 17.1 (6.6-38.0); CALCIUM 8.3 MG/DL (8.5-10.1); CHLORIDE 106 MMOL/L (99-107); CREATININE 1.29 MG/DL (0.40-0.90); GLUCOSE 98 MG/DL (70-104); POTASSIUM 4.6 MMOL/L (3.5-5.1); SODIUM 137 MMOL/L (135-145); TOTAL CARBON DIOXIDE 22.5 MMOL/L (24-32); eGFR 43 ML/MIN
[2022-01-05 06:31] LABS: PLATELET COUNT 49 X10'3 (140-440)
--- NOTE | 2022-01-05 06:54 | NUR ---
Patient in room PCU 3027P. I have received report from AI Chen and had the opportunity to ask questions and assume patient care.
[2022-01-05] MEDS: pantoprazole 40mg Tablet.DR PO SCH (07:30)
[2022-01-05] MEDS: piperacillin/tazo 3.375gm/50ml 50 ML IV SCH ×2 (08:45→17:19)
[2022-01-05] MEDS: magnesium oxide 400mg tablet PO SCH ×2 (08:50→20:49)
[2022-01-05] MEDS: thiamine 100mg tablet PO SCH (08:50)
[2022-01-05] MEDS: folic acid 1mg tablet PO SCH (08:51)
[2022-01-05] MEDS: multivitamins, therapeutics tablet PO SCH (08:51)
[2022-01-05] MEDS: metoprolol succinate 25mg (24-HOUR) SR. Tablet PO SCH (08:52)
[2022-01-05] MEDS: spironolactone 25 MG tablet PO SCH (08:52)
[2022-01-05] MEDS: furosemide 40mg tablet PO SCH (08:54)
[2022-01-05] MEDS: ESCITALOPRAM OXALATE 5 MG TABLET PO SCH (08:54)
[2022-01-05 11:00] VITALS: BP 129/72
[2022-01-05 15:00] VITALS: BP 111/69
[2022-01-05 18:00] VITALS: BP 131/74
--- NOTE | 2022-01-05 18:20 | NUR ---
Problems reprioritized. Patient report given, questions answered & plan of care reviewed with AI GRAVES.
[2022-01-05] MEDS: OLANZAPINE 5 MG TABLET PO SCH (20:49)
[2022-01-05 22:00] VITALS: BP 131/74
[2022-01-06] MEDS: piperacillin/tazo 3.375gm/50ml 50 ML IV SCH ×3 (00:32→17:56)
[2022-01-06 02:00] VITALS: BP 103/55
[2022-01-06 06:00] VITALS: BP 96/50
[2022-01-06 06:12] LABS: BASOPHILS % (AUTO) 0.5 % (0-1); EOSINOPHILS # (AUTO) 0.2 X10'3 (0-0.9); EOSINOPHILS % (AUTO) 5.1 % (0-6); HEMATOCRIT 28.4 % (35.0-45.0); HEMOGLOBIN 9.4 g/dl (12.0-16.0); LYMPHOCYTES # (AUTO) 1.2 X10'3 (1.1-4.8); LYMPHOCYTES % (AUTO) 32.1 % (21-51); MEAN CORPUSCULAR HEMOGLOBIN 30.1 PG (27.0-31.0); MEAN CORPUSCULAR VOLUME 91.1 FL (78-98); MONOCYTES # (AUTO) 0.6 X10'3 (0-0.9); MONOCYTES % (AUTO) 14.7 % (2-12); NEUTROPHILS # (AUTO) 1.8 X10'3 (1.8-7.7); NEUTROPHILS % (AUTO) 47.6 % (42-75); PLATELET COUNT 54 X10'3 (140-440); RED BLOOD COUNT 3.11 X10'6 (4.20-5.60); WHITE BLOOD COUNT 3.8 X10'3 (4.5-11.0)
[2022-01-06 06:18] LABS: ALBUMIN 2.4 G/DL (3.4-5.0); ANION GAP 7 (8-16); BLOOD UREA NITROGEN 20 MG/DL (7-18); BUN/CREATININE RATIO 16.8 (6.6-38.0); CALCIUM 9.1 MG/DL (8.5-10.1); CHLORIDE 104 MMOL/L (99-107); CREATININE 1.19 MG/DL (0.40-0.90); POTASSIUM 4.4 MMOL/L (3.5-5.1); SODIUM 139 MMOL/L (135-145); TOTAL CARBON DIOXIDE 27.7 MMOL/L (24-32); eGFR 47 ML/MIN
[2022-01-06 06:20] LABS: GLUCOSE 89 MG/DL (70-104)
[2022-01-06 07:05] LABS: ANISOCYTOSIS 1+; PLATELET ESTIMATE DECREASED
[2022-01-06 07:06] LABS: TEAR DROP CELLS FEW
[2022-01-06] MEDS: folic acid 1mg tablet PO SCH (07:55)
[2022-01-06] MEDS: multivitamins, therapeutics tablet PO SCH (07:55)
[2022-01-06] MEDS: thiamine 100mg tablet PO SCH (07:55)
[2022-01-06] MEDS: pantoprazole 40mg Tablet.DR PO SCH (07:55)
[2022-01-06] MEDS: ESCITALOPRAM OXALATE 5 MG TABLET PO SCH (07:56)
[2022-01-06] MEDS: magnesium oxide 400mg tablet PO SCH ×2 (07:56→21:04)
[2022-01-06] MEDS: metoprolol succinate 25mg (24-HOUR) SR. Tablet PO SCH (08:00)
[2022-01-06] MEDS: spironolactone 25 MG tablet PO SCH (08:00)
[2022-01-06] MEDS: furosemide 40mg tablet PO SCH (08:00)
[2022-01-06] MEDS: LORazepam 2 mg/ml vial IV PRN ×2 (10:52→17:56)
--- NOTE | 2022-01-06 11:27 | NUR ---
Patient in room PCU 3023. I have received report from elizabet CLOUD and had the opportunity to ask questions and awaiting patients arrival
--- NOTE | 2022-01-06 11:30 | NUR ---
Report called to May CLOUD, med/surg unit. All questions answered. Pt will transfer via bed.
--- NOTE | 2022-01-06 11:42 | NUR ---
patient arrived on floor in stable condition. orientated to room. will continue to monitor
--- NOTE | 2022-01-06 13:36 | NUR ---
Reassessment: Patient's diet advanced to full liquids 01/05 and pt continues eating well with 100% PO intake which meets 100% of estimated energy needs though only 55% estimated protein needs. Recommend advancing to regular diet as medically indicated. Per MD note pt with c/o some nausea though no vomiting. LBM 4/5. Will continue to follow closely and make recommendations as appropriate. Recommendations: 1. Advance to regular diet as medically indicated 2. Monitor need for ONS/additional protein 3. Routine Thiamine, Folic acid, and MVI for EtOH hx 4. Bowel care per rx 5. Scaled wt this admit; weekly scaled weights thereafter Addendum: 01/06/22 at [address] Amended: Links added.
[2022-01-06] MEDS: hydrOXYzine 25 MG tablet PO PRN (14:45)
[2022-01-06 18:00] VITALS: BP 109/58
--- NOTE | 2022-01-06 18:30 | NUR ---
patient asking often for ativan for anxiety and morphine for pain. Medicated as per EMAR. with good result patient sleeping on and off. AMbulated in hallway x1, appeared agitated at times questioning plan of care. Much time spent with patient answering questions . patient is for CT with contrast in am. Oral prep to start tonight 2100hrs. Report given to Yesenia CLOUD
[2022-01-06] MEDS: OLANZAPINE 5 MG TABLET PO SCH (21:04)
[2022-01-06] MEDS: oxyCODONE/APAP 5-325mg tablet PO PRN (21:05)
[2022-01-06] MEDS: diatr meglu/diatrizoate 30ml oral sol.-(3 dose) bottle PO SCH (21:06)
[2022-01-07] VITALS: BP 107/71
[2022-01-07] MEDS: piperacillin/tazo 3.375gm/50ml 50 ML IV SCH ×4 (00:20→23:48)
[2022-01-07 06:30] VITALS: BP 98/62
[2022-01-07 06:48] LABS: BASOPHILS % (AUTO) 0.8 % (0-1); EOSINOPHILS # (AUTO) 0.1 X10'3 (0-0.9); EOSINOPHILS % (AUTO) 4.4 % (0-6); HEMOGLOBIN 8.9 g/dl (12.0-16.0); LYMPHOCYTES # (AUTO) 1.4 X10'3 (1.1-4.8); LYMPHOCYTES % (AUTO) 41.8 % (21-51); MEAN CORPUSCULAR HEMOGLOBIN 29.9 PG (27.0-31.0); MEAN CORPUSCULAR HGB CONC 32.8 g/dL (33.0-36.5); MEAN CORPUSCULAR VOLUME 91.2 FL (78-98); MEAN PLATELET VOLUME 6.9 FL (7.4-10.4); MONOCYTES # (AUTO) 0.6 X10'3 (0-0.9); MONOCYTES % (AUTO) 17.9 % (2-12); NEUTROPHILS # (AUTO) 1.2 X10'3 (1.8-7.7); NEUTROPHILS % (AUTO) 35.1 % (42-75); PLATELET COUNT 55 X10'3 (140-440); RED BLOOD COUNT 2.96 X10'6 (4.20-5.60); RED CELL DISTRIBUTION WIDTH 18.2 % (11.5-14.5); WHITE BLOOD COUNT 3.4 X10'3 (4.5-11.0)
--- NOTE | 2022-01-07 06:50 | NUR ---
Patient in room [facility] 350. I have received report from AI Johnson and had the opportunity to ask questions and assume patient care.
[2022-01-07 07:38] LABS: ALBUMIN 2.3 G/DL (3.4-5.0); ANION GAP 9 (8-16); BLOOD UREA NITROGEN 17 MG/DL (7-18); BUN/CREATININE RATIO 15.2 (6.6-38.0); CHLORIDE 105 MMOL/L (99-107); CREATININE 1.12 MG/DL (0.40-0.90); POTASSIUM 4.3 MMOL/L (3.5-5.1); SODIUM 140 MMOL/L (135-145); TOTAL CARBON DIOXIDE 26.5 MMOL/L (24-32); eGFR 50 ML/MIN
[2022-01-07 07:41] LABS: GLUCOSE 90 MG/DL (70-104)
[2022-01-07] MEDS: spironolactone 25 MG tablet PO SCH (08:00)
[2022-01-07] MEDS: furosemide 40mg tablet PO SCH (08:00)
[2022-01-07] MEDS: metoprolol succinate 25mg (24-HOUR) SR. Tablet PO SCH (08:00)
[2022-01-07] MEDS: pantoprazole 40mg Tablet.DR PO SCH (08:17)
[2022-01-07] MEDS: folic acid 1mg tablet PO SCH (08:17)
[2022-01-07] MEDS: ESCITALOPRAM OXALATE 5 MG TABLET PO SCH (08:17)
[2022-01-07] MEDS: thiamine 100mg tablet PO SCH (08:17)
[2022-01-07] MEDS: multivitamins, therapeutics tablet PO SCH (08:17)
[2022-01-07] MEDS: magnesium oxide 400mg tablet PO SCH ×2 (08:18→20:11)
[2022-01-07] MEDS: diatr meglu/diatrizoate 30ml oral sol.-(3 dose) bottle PO SCH ×2 (08:18→10:38)
[2022-01-07] MEDS: LORazepam 2 mg/ml vial IV PRN ×2 (10:40)
[2022-01-07] MEDS ORDERED: iohexol 300mg/ml 100ml inj. ONE (10:43)
[2022-01-07 11:00] VITALS: BP 110/69
[2022-01-07] MEDS: LORazepam 1 MG tablet PO PRN ×3 (14:08→23:48)
[2022-01-07 18:00] VITALS: BP 92/52
--- NOTE | 2022-01-07 18:10 | NUR ---
Patient in room [facility] 350. I have received report from Delicia CLOUD and had the opportunity to ask questions and assume patient care.
--- NOTE | 2022-01-07 18:10 | NUR ---
Problems reprioritized. Patient report given, questions answered & plan of care reviewed with AI Mcdermott.
[2022-01-07] MEDS: OLANZAPINE 5 MG TABLET PO SCH (20:11)
[2022-01-08] MEDS: hydrOXYzine 25 MG tablet PO PRN (01:56)
[2022-01-08 06:09] LABS: BASOPHILS % (AUTO) 0.6 % (0-1); EOSINOPHILS # (AUTO) 0.1 X10'3 (0-0.9); EOSINOPHILS % (AUTO) 3.4 % (0-6); HEMATOCRIT 29.2 % (35.0-45.0); HEMOGLOBIN 9.5 g/dl (12.0-16.0); LYMPHOCYTES # (AUTO) 1.3 X10'3 (1.1-4.8); LYMPHOCYTES % (AUTO) 34.7 % (21-51); MEAN CORPUSCULAR HEMOGLOBIN 29.6 PG (27.0-31.0); MEAN CORPUSCULAR HGB CONC 32.5 g/dL (33.0-36.5); MEAN PLATELET VOLUME 7.5 FL (7.4-10.4); MONOCYTES # (AUTO) 0.6 X10'3 (0-0.9); MONOCYTES % (AUTO) 16.8 % (2-12); NEUTROPHILS # (AUTO) 1.7 X10'3 (1.8-7.7); NEUTROPHILS % (AUTO) 44.5 % (42-75); PLATELET COUNT 72 X10'3 (140-440); RED BLOOD COUNT 3.21 X10'6 (4.20-5.60); RED CELL DISTRIBUTION WIDTH 18.5 % (11.5-14.5); WHITE BLOOD COUNT 3.9 X10'3 (4.5-11.0)
[2022-01-08 06:12] LABS: ALBUMIN 2.3 G/DL (3.4-5.0); ANION GAP 10 (8-16); BLOOD UREA NITROGEN 17 MG/DL (7-18); CALCIUM 9.2 MG/DL (8.5-10.1); CHLORIDE 101 MMOL/L (99-107); CREATININE 1.31 MG/DL (0.40-0.90); POTASSIUM 4.5 MMOL/L (3.5-5.1); SODIUM 135 MMOL/L (135-145); eGFR 42 ML/MIN
[2022-01-08 06:15] LABS: GLUCOSE 113 MG/DL (70-104)
--- NOTE | 2022-01-08 06:15 | NUR ---
Patient in room [facility] 350. I have received report from AI Mcdermott and had the opportunity to ask questions and assume patient care.
--- NOTE | 2022-01-08 06:19 | NUR ---
Problems reprioritized. Patient report given, questions answered & plan of care reviewed with Delicia RN.
[2022-01-08 06:30] VITALS: BP 98/62
[2022-01-08] MEDS: spironolactone 25 MG tablet PO SCH (07:37)
[2022-01-08] MEDS: furosemide 40mg tablet PO SCH (07:37)
[2022-01-08] MEDS: metoprolol succinate 25mg (24-HOUR) SR. Tablet PO SCH (07:37)
[2022-01-08] MEDS: pantoprazole 40mg Tablet.DR PO SCH (09:06)
[2022-01-08] MEDS: LORazepam 1 MG tablet PO PRN (09:06)
[2022-01-08] MEDS: ESCITALOPRAM OXALATE 5 MG TABLET PO SCH (09:06)
[2022-01-08] MEDS: thiamine 100mg tablet PO SCH (09:06)
[2022-01-08] MEDS: multivitamins, therapeutics tablet PO SCH (09:06)
[2022-01-08] MEDS: folic acid 1mg tablet PO SCH (09:07)
[2022-01-08] MEDS: magnesium oxide 400mg tablet PO SCH (09:07)
[2022-01-08] MEDS: piperacillin/tazo 3.375gm/50ml 50 ML IV SCH (09:07)
[2022-01-08 11:00] VITALS: BP 93/59
[2022-01-08] MEDS ORDERED: LEVO500T90 PO (13:03)
[2022-01-08] MEDS ORDERED: LORA-269 PO (13:03)
[2022-01-08] MEDS ORDERED: PANT40TA54 PO (13:03)
--- NOTE | 2022-01-08 14:00 | NUR ---
DC inst provided to pt. IV DC'd, tip intact. All belongings sent w/pt. WC to vehicle.
== END 2022-01-08 14:00 | disposition home health service (06) | DRG 871 ==
LOC: ER 23:40 → ED HOLD 01-02 04:43 → ICU 2S 01-02 08:01 → PCU 3S 01-04 16:11 → SUR 3N 01-06 11:42
PROVIDERS: ADMIT Internal Medicine Critical Care Medicine; ATTEND Internal Medicine Critical Care Medicine
PROC: 06HY33Z Insertion of Infusion Device into Lower Vein, Percutaneous Approach (ICD-10-PCS; principal; 2022-01-02)
PROC: B54BZZA Ultrasonography of Right Lower Extremity Veins, Guidance (ICD-10-PCS; 2022-01-02)
DX: A41.9 Sepsis, unspecified organism (principal); R65.21 Severe sepsis with septic shock; N17.0 Acute kidney failure with tubular necrosis; J90 Pleural effusion, not elsewhere classified; K92.2 Gastrointestinal hemorrhage, unspecified; N39.0 Urinary tract infection, site not specified; I42.8 Other cardiomyopathies; K76.6 Portal hypertension; J98.11 Atelectasis; Z20.822 Contact with and (suspected) exposure to COVID-19; F10.20 Alcohol dependence, uncomplicated; R10.13 Epigastric pain; D69.59 Other secondary thrombocytopenia; E88.09 Other disorders of plasma-protein metabolism, not elsewhere classified; K70.30 Alcoholic cirrhosis of liver without ascites; K72.10 Chronic hepatic failure without coma; Z79.899 Other long term (current) drug therapy; Z88.2 Allergy status to sulfonamides; Z90.49 Acquired absence of other specified parts of digestive tract
CPT/HCPCS: 36415; 36556; 71045; 74176; 74177; 80048; 80053; 81001; 82140; 82150; 82948; 83605; 83690; 84145; 84484; 85007; 85008; 85025; 85610; 85730; 87040; 87635; 93005; 97110; 97116; 97161; 97530; 99285; C9113; G0378; J0696; J2060; J2270; J2405; J2543; J3010; J3490; J7030; P9045; P9047; Q0177; Q9963; Q9967

== ENCOUNTER 2022-01-25 09:19 | Day surgery (SDC) | payer OTHER, MEDICARE ==
[~2022-01-25] VITALS: Ht 160 cm; Wt 69.9 kg
[~2022-01-25 09:19] MED LIST changes: +ALBU17AE26 PO; -HYDR-3973 PO; +LORA-269 PO; +MAGN400T56 PO; -OLAN10TA3 PO; +OLAN5TAB75 PO; -PANT20TA18 PO; +PANT40TA54 PO; +SPIR100T5 PO; -SPIR50TA PO; -SUCR1TAB34 PO; +THIA100T66 PO; -TRAM50TA2 PO; -Vitamin B-1 PO
[2022-01-25 09:32] VITALS: BP 119/78
[2022-01-25] MEDS ORDERED: LIDOcaine 1%/PF 5ML 10 MG/ML VIAL SQ ONE (09:40)
[2022-01-25] MEDS ORDERED: TRAM50TA2 PO (09:48)
[2022-01-25 10:15] VITALS: BP 107/69
[2022-01-25 10:30] VITALS: BP 127/77
[2022-01-25 10:45] VITALS: BP 110/65
[2022-01-25 11:00] VITALS: BP 112/68
== END 2022-01-25 11:05 | disposition home or self-care (01) ==
LOC: SSTAY O 09:19
PROVIDERS: ATTEND Preventive Medicine Aerospace Medicine
DX: J90 Pleural effusion, not elsewhere classified (principal); K74.60 Unspecified cirrhosis of liver; D69.6 Thrombocytopenia, unspecified; N18.6 End stage renal disease; M81.0 Age-related osteoporosis without current pathological fracture; K72.10 Chronic hepatic failure without coma; K70.10 Alcoholic hepatitis without ascites; Z90.49 Acquired absence of other specified parts of digestive tract; Z98.890 Other specified postprocedural states; F12.90 Cannabis use, unspecified, uncomplicated; Z72.89 Other problems related to lifestyle; Z79.899 Other long term (current) drug therapy
CPT/HCPCS: 32555

== ENCOUNTER 2022-05-06 14:50 | Emergency (ER) | payer OTHER, MEDICARE ==
[~2022-05-06] VITALS: Ht 160 cm; Wt 68.2 kg
[~2022-05-06 14:50] MED LIST changes: -LORA-269 PO; +TRAM50TA2 PO
[2022-05-06 15:08] VITALS: BP 101/59
[2022-05-06 15:55] LABS: BASOPHILS % (AUTO) 1.7 % (0-1); EOSINOPHILS # (AUTO) 0.1 X10'3 (0-0.9); EOSINOPHILS % (AUTO) 6.2 % (0-6); HEMATOCRIT 25.4 % (35.0-45.0); HEMOGLOBIN 8.1 g/dl (12.0-16.0); LYMPHOCYTES # (AUTO) 0.7 X10'3 (1.1-4.8); LYMPHOCYTES % (AUTO) 42.2 % (21-51); MEAN CORPUSCULAR HEMOGLOBIN 23.7 PG (27.0-31.0); MEAN CORPUSCULAR VOLUME 73.9 FL (78-98); MEAN PLATELET VOLUME 8.1 FL (7.4-10.4); MONOCYTES # (AUTO) 0.2 X10'3 (0-0.9); MONOCYTES % (AUTO) 8.7 % (2-12); NEUTROPHILS # (AUTO) 0.7 X10'3 (1.8-7.7); NEUTROPHILS % (AUTO) 41.2 % (42-75); PLATELET COUNT 91 X10'3 (140-440); RED BLOOD COUNT 3.43 X10'6 (4.20-5.60); WHITE BLOOD COUNT 1.7 X10'3 (4.5-11.0)
[2022-05-06 16:02] LABS: ALANINE AMINOTRANSFERASE 105 U/L (12-78); ALBUMIN 2.8 G/DL (3.4-5.0); ALBUMIN/GLOBULIN RATIO 0.5 (1.1-1.5); ALKALINE PHOSPHATASE 158 IU/L (46-116); ANION GAP 8 (8-16); ASPARTATE AMINO TRANSFERASE 155 U/L (10-37); BILIRUBIN,TOTAL 2.6 MG/DL (0.1-1.0); BLOOD UREA NITROGEN 16 MG/DL (7-18); BUN/CREATININE RATIO 11.3 (6.6-38.0); CALCIUM 8.8 MG/DL (8.5-10.1); CHLORIDE 103 MMOL/L (99-107); CREATININE 1.42 MG/DL (0.40-0.90); POTASSIUM 3.8 MMOL/L (3.5-5.1); SODIUM 138 MMOL/L (135-145); TOTAL CARBON DIOXIDE 26.6 MMOL/L (24-32); TOTAL PROTEIN 7.9 G/DL (6.4-8.2); eGFR 38 ML/MIN
[2022-05-06 16:05] LABS: GLUCOSE 163 MG/DL (70-104)
[2022-05-06 16:17] LABS: PLATELET ESTIMATE DECREASED
[2022-05-06 16:18] LABS: ANISOCYTOSIS 2+; ELLIPTOCYTES FEW; MICROCYTOSIS 1+; POIKILOCYTOSIS 1+; SCHISTOCYTES FEW; TEAR DROP CELLS FEW
--- NOTE | 2022-05-06 19:19 | NUR ---
Patient self administering her scheduled captopril. BP 131/78
[2022-05-06 19:23] LABS: CREATINE KINASE 798 U/L (26-192)
[2022-05-06] MEDS: ringers solution, lacted 1,000 ML IV ONE (19:45)
[2022-05-06 20:08] LABS: CKMB RELATIVE INDEX 1.3 RATIO (0-2.5)
--- NOTE | 2022-05-06 20:48 | NUR ---
RELIEVING RN FOR BREAK, [facility] SENT LAB, ATTEMPTED IV X2 NO SUCCESS, ANOTHER RN TO TRY
[2022-05-06 20:51] LABS: CLARITY,URINE CLEAR (Clear); COLOR,URINE YELLOW (Yellow); GLUCOSE, URINE NEGATIVE (Neg); KETONES,URINE NEGATIVE (Neg); LEUKOCYTE ESTERASE ,URINE NEGATIVE (Neg); NITRITES, URINE NEGATIVE (Neg); OCCULT BLOOD,URINE NEGATIVE (Neg); PH,URINE 5.5 (4.8-8.0); PROTEIN,URINE NEGATIVE (Neg); UROBILINOGEN,URINE 0.2 E.U/dL (0.2-1.0)
[2022-05-06 20:53] LABS: UA COLLECTION TYPE CLN CATCH MIDSTREAM
--- NOTE | 2022-05-06 22:41 | NUR ---
Verbal order for another 500 ml LR per MD. 1 L LR total administered.
[2022-05-07 00:42] LABS: CREATINE KINASE 580 U/L (26-192)
== END 2022-05-07 03:07 | disposition home or self-care (01) ==
LOC: ER 14:51
DX: R74.8 Abnormal levels of other serum enzymes (principal); Z88.2 Allergy status to sulfonamides; Z79.899 Other long term (current) drug therapy
CPT/HCPCS: 36415; 71045; 80053; 81003; 82550; 82553; 83874; 83880; 84484; 85008; 85025; 93005; 96360; 96361; 99285; J7120

== ENCOUNTER 2023-02-08 11:59 | Inpatient (IN) | payer MEDICARE, OTHER ==
[~2023-02-08] VITALS: Ht 160 cm; Wt 68.2 kg
[2023-02-08 12:45] LABS: BASOPHILS % (AUTO) 0.8 % (0-1); EOSINOPHILS # (AUTO) 0.1 X10'3 (0-0.9); EOSINOPHILS % (AUTO) 1.8 % (0-6); HEMATOCRIT 22.1 % (35.0-45.0); HEMOGLOBIN 7.2 g/dl (12.0-16.0); LYMPHOCYTES # (AUTO) 0.5 X10'3 (1.1-4.8); LYMPHOCYTES % (AUTO) 15.1 % (21-51); MEAN CORPUSCULAR HEMOGLOBIN 36.7 PG (27.0-31.0); MEAN CORPUSCULAR HGB CONC 32.6 g/dL (33.0-36.5); MEAN CORPUSCULAR VOLUME 112.7 FL (78-98); MEAN PLATELET VOLUME 8.1 FL (7.4-10.4); MONOCYTES # (AUTO) 0.3 X10'3 (0-0.9); MONOCYTES % (AUTO) 8.3 % (2-12); NEUTROPHILS # (AUTO) 2.7 X10'3 (1.8-7.7); PLATELET COUNT 101 X10'3 (140-440); RED BLOOD COUNT 1.96 X10'6 (4.20-5.60); RED CELL DISTRIBUTION WIDTH 19.2 % (11.5-14.5); WHITE BLOOD COUNT 3.6 X10'3 (4.5-11.0)
[2023-02-08 13:05] LABS: ALANINE AMINOTRANSFERASE 40 U/L (12-78); ALBUMIN 2.5 G/DL (3.4-5.0); ALKALINE PHOSPHATASE 113 IU/L (46-116); ANION GAP 7 (8-16); ASPARTATE AMINO TRANSFERASE 83 U/L (10-37); BILIRUBIN,TOTAL 6.2 MG/DL (0.1-1.0); BLOOD UREA NITROGEN 7 MG/DL (7-18); BUN/CREATININE RATIO 6.1 (10.0-20.0); CALCIUM 8.3 MG/DL (8.5-10.1); CHLORIDE 102 MMOL/L (99-107); CREATININE 1.15 MG/DL (0.40-0.90); GLUCOSE 140 MG/DL (70-104); SODIUM 136 MMOL/L (135-145); TOTAL CARBON DIOXIDE 27.4 MMOL/L (24-32); eGFR 49 ML/MIN
[2023-02-08 13:14] LABS: MAGNESIUM 1.4 MG/DL (1.5-2.4)
[2023-02-08 13:16] LABS: ALBUMIN/GLOBULIN RATIO 0.6 (1.1-1.5); TOTAL PROTEIN 6.9 G/DL (6.4-8.2)
[2023-02-08] MEDS ORDERED: pantoprazole 40mg IV 80 MG in normal saline 100ml IV soln 100 ML IV ONE (13:25)
[2023-02-08] MEDS ORDERED: octreotide inj. 1,250 MCG in normal saline 250ml IV soln 250 ML IV ONE (13:25)
[2023-02-08] MEDS ORDERED: pantoprazole 40MG/NS 100ML BAG 100 ML IV ONE (13:25)
[2023-02-08 13:28] LABS: PLATELET ESTIMATE NORMAL
[2023-02-08 13:29] LABS: ANISOCYTOSIS 3+
[2023-02-08 13:30] LABS: ELLIPTOCYTES 1+; TEAR DROP CELLS 1+
[2023-02-08 13:31] LABS: POIKILOCYTOSIS 2+
[2023-02-08] MEDS ORDERED: octreotide inj. 500 MCG in normal saline 100ml IV soln 97.5 ML IV ONE (13:35)
[2023-02-08] MEDS ORDERED: PANT-47 PO (15:19)
[2023-02-08] MEDS ORDERED: METO-395 PO (15:19)
[2023-02-08 15:55] VITALS: BP 123/64
[2023-02-08 16:10] VITALS: BP 111/58
[2023-02-08] MEDS ORDERED: HYDROcodone/acetaminophen 5mg/325mg tablet PO PRN (16:15)
[2023-02-08] MEDS ORDERED: acetaminophen 325mg tablet PO PRN ×2 (16:15)
[2023-02-08] MEDS ORDERED: morphine 2 MG/ML inj. syringe IV PRN (16:15)
[2023-02-08] MEDS ORDERED: magnesium hydroxide 30ml (MOM) UD suspension PO PRN (16:15)
[2023-02-08 17:10] VITALS: BP 115/59
[2023-02-08] MEDS ORDERED: risperiDONE 2mg tablet PO PRN (19:10)
--- NOTE | 2023-02-08 19:15 | NUR ---
CALLED MD MELODIE FOR RESTORIL PRN FOR ANXIETY/WITHDRAWAL, MD PRICE'D ORDER FOR RESTORIL 15MG PO PRN Q8 HRS FOR SLEEP & ANXIETY.
[2023-02-08] MEDS: traMADol 50MG tablet PO PRN (19:43)
[2023-02-08] MEDS: temazepam 15mg capsule PO PRN (19:43)
[2023-02-08] MEDS: docusate sod 100mg capsule PO SCH (19:44)
[2023-02-08] MEDS: OLANZAPINE 5 MG TABLET PO SCH (20:31)
[2023-02-08] MEDS: magnesium oxide 400mg tablet PO SCH (20:31)
--- NOTE | 2023-02-08 21:00 | NUR ---
Received pt. from ER per stretcher on Octreotide gtt 25 mcgs. Able to move from stretcher to bed with minimal assistance Pt. has 2 peripheral IV/ SL. Able to use BSC with assistance. Abd Very large distended with 2 ventral hernias 1 very firm to touch. Pt. c/o able pain medicated as needed, tolerated well. On full liquid diet tolerating po fluids well. After 2 hours pt. c/o pain unrelenting. Anti-acid given and IV pain med. Now resting comfortably. Pt. is NPO at LA for EGD in am.
[2023-02-08 21:30] VITALS: BP 106/54
[2023-02-08] MEDS: ondansetron/PF 4mg/2ml inj IV PRN (22:36)
[2023-02-08] MEDS: hydrOXYzine 25 MG tablet PO PRN (22:36)
[2023-02-08] MEDS: HYDROcodone/acetaminophen 10/325mg tab PO PRN (22:37)
[2023-02-09] VITALS (16 sets, daily range): BP systolic 91–131; BP diastolic 43–66
[2023-02-09] MEDS: morphine 2 MG/ML inj. syringe IV PRN ×2 (01:16→23:53)
[2023-02-09] MEDS: mag hydrox/Alum hydrox/simeth 30ml oral suspension PO PRN ×2 (01:16→23:58)
[2023-02-09] MEDS: hydrOXYzine 25 MG tablet PO PRN ×2 (04:43→20:28)
[2023-02-09] MEDS: ondansetron/PF 4mg/2ml inj IV PRN ×2 (04:43→23:52)
[2023-02-09 06:05] LABS: ALANINE AMINOTRANSFERASE 30 U/L (12-78); ALKALINE PHOSPHATASE 80 IU/L (46-116); ANION GAP 4 (8-16); ASPARTATE AMINO TRANSFERASE 76 U/L (10-37); BILIRUBIN,TOTAL 7.6 MG/DL (0.1-1.0); BLOOD UREA NITROGEN 11 MG/DL (7-18); BUN/CREATININE RATIO 8.9 (10.0-20.0); CHLORIDE 104 MMOL/L (99-107); CREATININE 1.24 MG/DL (0.40-0.90); GLUCOSE 106 MG/DL (70-104); SODIUM 138 MMOL/L (135-145); TOTAL CARBON DIOXIDE 30.2 MMOL/L (24-32); eGFR 45 ML/MIN
[2023-02-09 06:08] LABS: ALBUMIN/GLOBULIN RATIO 0.6 (1.1-1.5); TOTAL PROTEIN 5.5 G/DL (6.4-8.2)
[2023-02-09 06:10] LABS: BASOPHILS % (AUTO) 0.4 % (0-1); EOSINOPHILS # (AUTO) 0.1 X10'3 (0-0.9); EOSINOPHILS % (AUTO) 3.4 % (0-6); LYMPHOCYTES # (AUTO) 0.9 X10'3 (1.1-4.8); MEAN CORPUSCULAR HEMOGLOBIN 34.2 PG (27.0-31.0); MEAN CORPUSCULAR HGB CONC 32.6 g/dL (33.0-36.5); MEAN CORPUSCULAR VOLUME 104.8 FL (78-98); MEAN PLATELET VOLUME 7.8 FL (7.4-10.4); MONOCYTES # (AUTO) 0.3 X10'3 (0-0.9); MONOCYTES % (AUTO) 8.8 % (2-12); NEUTROPHILS # (AUTO) 1.7 X10'3 (1.8-7.7); NEUTROPHILS % (AUTO) 56.4 % (42-75); PLATELET COUNT 72 X10'3 (140-440); RED BLOOD COUNT 1.96 X10'6 (4.20-5.60); RED CELL DISTRIBUTION WIDTH 28.6 % (11.5-14.5); WHITE BLOOD COUNT 3.1 X10'3 (4.5-11.0)
--- NOTE | 2023-02-09 06:50 | NUR ---
Patient in room PCU 3025. I have received report from [davina rn] and had the opportunity to ask questions and assume patient care.
[2023-02-09 07:19] LABS: HEMATOCRIT 20.5 % (35.0-45.0); HEMOGLOBIN 6.7 g/dl (12.0-16.0)
[2023-02-09 07:26] LABS: PLATELET ESTIMATE DECREASED
[2023-02-09 07:27] LABS: ANISOCYTOSIS 3+; POLYCHROMASIA FEW
--- NOTE | 2023-02-09 07:35 | NUR ---
PAGED DR ALCOCER RE: PAGER ID: [phone] MESSAGE: ANAIS ENRIQUEZ. HGB 6.7 HCT 20.5. ASPEN [id number] TELE
[2023-02-09] MEDS: magnesium oxide 400mg tablet PO SCH ×2 (07:38→20:32)
[2023-02-09] MEDS: ESCITALOPRAM OXALATE 5 MG TABLET PO SCH ×2 (07:38→07:49)
[2023-02-09] MEDS: folic acid 0.4mg tablet PO SCH (07:38)
[2023-02-09] MEDS: thiamine 100mg tablet PO SCH (07:38)
[2023-02-09] MEDS: docusate sod 100mg capsule PO SCH ×2 (07:38→20:00)
[2023-02-09] MEDS: metoprolol succinate 25mg (24-HOUR) SR. Tablet PO SCH (07:44)
[2023-02-09] MEDS: HYDROcodone/acetaminophen 10/325mg tab PO PRN (07:56)
[2023-02-09] MEDS: spironolactone 25 MG tablet PO SCH (08:00)
[2023-02-09] MEDS: furosemide 40mg tablet PO SCH (08:00)
[2023-02-09] MEDS ORDERED: LIDOcaine Viscous 15ml cup ONE (12:09)
[2023-02-09] MEDS ORDERED: MIDAZolam 1 MG/ML 5ML VIAL ONE (12:09)
[2023-02-09] MEDS ORDERED: fentaNYL/PF 50MCG/1 ML 2ML syringe ONE ×2 (12:09)
[2023-02-09 16:49] LABS: HEMATOCRIT 25.6 % (35.0-45.0); HEMOGLOBIN 8.5 g/dl (12.0-16.0); MEAN CORPUSCULAR HEMOGLOBIN 33.3 PG (27.0-31.0); MEAN CORPUSCULAR HGB CONC 33.2 g/dL (33.0-36.5); MEAN CORPUSCULAR VOLUME 100.2 FL (78-98); MEAN PLATELET VOLUME 7.9 FL (7.4-10.4); PLATELET COUNT 70 X10'3 (140-440); RED BLOOD COUNT 2.56 X10'6 (4.20-5.60); RED CELL DISTRIBUTION WIDTH 30.7 % (11.5-14.5); WHITE BLOOD COUNT 2.4 X10'3 (4.5-11.0)
--- NOTE | 2023-02-09 18:26 | NUR ---
Problems reprioritized. Patient report given, questions answered & plan of care reviewed with MARYSE RN.
--- NOTE | 2023-02-09 20:00 | NUR ---
Pt. is awake alert oriented family members at bedside encouraging increase in fluid intake. Pt looks jaundiced today. Pt. c/o abd pain, gas and nausea medicated as needed. Pt. requesting Restoril. Peripheral SL intact x2 intact. Able to use BSC as needed. Plan for home soon.
[2023-02-09] MEDS: OLANZAPINE 5 MG TABLET PO SCH (20:27)
[2023-02-09] MEDS: temazepam 15mg capsule PO PRN (23:24)
[2023-02-10] VITALS (7 sets, daily range): BP systolic 98–128; BP diastolic 48–80
[2023-02-10] MEDS: hydrOXYzine 25 MG tablet PO PRN ×3 (03:56→22:36)
[2023-02-10] MEDS: traMADol 50MG tablet PO PRN (03:56)
[2023-02-10 06:14] LABS: BASOPHILS % (AUTO) 0.7 % (0-1); EOSINOPHILS # (AUTO) 0.1 X10'3 (0-0.9); EOSINOPHILS % (AUTO) 2.7 % (0-6); HEMATOCRIT 22.2 % (35.0-45.0); HEMOGLOBIN 7.6 g/dl (12.0-16.0); LYMPHOCYTES # (AUTO) 0.7 X10'3 (1.1-4.8); LYMPHOCYTES % (AUTO) 25.3 % (21-51); MEAN CORPUSCULAR HEMOGLOBIN 33.6 PG (27.0-31.0); MEAN CORPUSCULAR HGB CONC 34.2 g/dL (33.0-36.5); MEAN CORPUSCULAR VOLUME 98.3 FL (78-98); MEAN PLATELET VOLUME 7.7 FL (7.4-10.4); MONOCYTES # (AUTO) 0.2 X10'3 (0-0.9); MONOCYTES % (AUTO) 9.4 % (2-12); NEUTROPHILS # (AUTO) 1.6 X10'3 (1.8-7.7); NEUTROPHILS % (AUTO) 61.9 % (42-75); PLATELET COUNT 63 X10'3 (140-440); RED BLOOD COUNT 2.26 X10'6 (4.20-5.60); WHITE BLOOD COUNT 2.6 X10'3 (4.5-11.0)
[2023-02-10 06:22] LABS: ALANINE AMINOTRANSFERASE 30 U/L (12-78); ALBUMIN 1.9 G/DL (3.4-5.0); ALKALINE PHOSPHATASE 68 IU/L (46-116); ANION GAP 2 (8-16); ASPARTATE AMINO TRANSFERASE 73 U/L (10-37); BILIRUBIN,TOTAL 6.6 MG/DL (0.1-1.0); BLOOD UREA NITROGEN 12 MG/DL (7-18); BUN/CREATININE RATIO 9.8 (10.0-20.0); CALCIUM 7.8 MG/DL (8.5-10.1); CHLORIDE 105 MMOL/L (99-107); CREATININE 1.23 MG/DL (0.40-0.90); GLUCOSE 99 MG/DL (70-104); POTASSIUM 4.3 MMOL/L (3.5-5.1); SODIUM 136 MMOL/L (135-145); TOTAL CARBON DIOXIDE 28.6 MMOL/L (24-32); eGFR 45 ML/MIN
[2023-02-10 06:24] LABS: ALBUMIN/GLOBULIN RATIO 0.6 (1.1-1.5); TOTAL PROTEIN 5.3 G/DL (6.4-8.2)
--- NOTE | 2023-02-10 06:38 | NUR ---
Patient in room PCU 3025. I have received report from davina rn and had the opportunity to ask questions and assume patient care.
[2023-02-10 07:26] LABS: ANISOCYTOSIS 3+; PLATELET ESTIMATE DECREASED; POLYCHROMASIA 1+
[2023-02-10 07:27] LABS: BURR CELLS FEW; ELLIPTOCYTES FEW; STOMATOCYTES FEW; TEAR DROP CELLS 1+
[2023-02-10] MEDS: spironolactone 25 MG tablet PO SCH (07:40)
[2023-02-10] MEDS: furosemide 40mg tablet PO SCH (07:41)
[2023-02-10] MEDS: docusate sod 100mg capsule PO SCH ×2 (07:43→20:00)
[2023-02-10] MEDS: metoprolol succinate 25mg (24-HOUR) SR. Tablet PO SCH (07:43)
[2023-02-10] MEDS: folic acid 0.4mg tablet PO SCH (07:45)
[2023-02-10] MEDS: magnesium oxide 400mg tablet PO SCH ×2 (07:45→20:22)
[2023-02-10] MEDS: ESCITALOPRAM OXALATE 5 MG TABLET PO SCH (07:45)
[2023-02-10] MEDS: thiamine 100mg tablet PO SCH (07:45)
[2023-02-10] MEDS: HYDROcodone/acetaminophen 10/325mg tab PO PRN ×2 (07:46→22:36)
[2023-02-10] MEDS: pantoprazole 40mg Tablet.DR PO SCH (09:29)
[2023-02-10] MEDS: mag hydrox/Alum hydrox/simeth 30ml oral suspension PO PRN (10:30)
[2023-02-10 11:16] LABS: TOTAL CELLS COUNTED 100
[2023-02-10] MEDS: lactulose 20gm/30ml cup PO SCH ×3 (12:12→20:29)
[2023-02-10] MEDS ORDERED: lactulose 20gm/30ml cup PO SCH (14:00)
--- NOTE | 2023-02-10 17:44 | NUR ---
O2 Sat at rest on room air:_81__% If below 89%: Recovery O2 Sat at rest on _3.5__LPM:_94__%:___% via NC (mask/nasal cannula, etc..) No further documentation is necessary. If O2 Sat did not drop below 89% on room air,ambulate patient on room air. O2 Sat while ambulating on room air:___% Recovery O2 Sat while ambulating on ___LPM:___% No further documentation is necessary. If patient does not drop below 89% while ambulating, he/she does not qualify for home O2.
--- NOTE | 2023-02-10 18:00 | NUR ---
Patient in room PCU 3025. I have received report from Madai CLOUD [] and had the opportunity to ask questions and assume patient care.
--- NOTE | 2023-02-10 18:00 | NUR ---
Patient in room PCU 3025. I have received report from ASPEN CLOUD and had the opportunity to ask questions and assume patient care.
--- NOTE | 2023-02-10 18:13 | NUR ---
Problems reprioritized. Patient report given, questions answered & plan of care reviewed with HAMLET RN.
[2023-02-10] MEDS: morphine 2 MG/ML inj. syringe IV PRN (20:17)
[2023-02-10] MEDS: OLANZAPINE 5 MG TABLET PO SCH (20:20)
[2023-02-10] MEDS: temazepam 15mg capsule PO PRN (20:29)
[2023-02-11 02:00] VITALS: BP 112/51
[2023-02-11] MEDS: lactulose 20gm/30ml cup PO SCH ×4 (02:00→19:42)
[2023-02-11] MEDS: morphine 2 MG/ML inj. syringe IV PRN (04:41)
[2023-02-11 06:00] VITALS: BP 91/48
--- NOTE | 2023-02-11 06:34 | NUR ---
Patient in room U 3025. I have received report from Daniela CLOUD and had the opportunity to ask questions and assume patient care. Pt sleeping, no distress, Call light in reach. Addendum: 02/11/23 at 0635 by Sheryl Nieto RN Amended: Links added.
--- NOTE | 2023-02-11 06:37 | NUR ---
Problems reprioritized. Patient report given, questions answered & plan of care reviewed with YUKO CLOUD.
[2023-02-11 06:44] LABS: BASOPHILS % (AUTO) 1.1 % (0-1); EOSINOPHILS # (AUTO) 0.1 X10'3 (0-0.9); EOSINOPHILS % (AUTO) 3.3 % (0-6); HEMATOCRIT 25.8 % (35.0-45.0); HEMOGLOBIN 8.3 g/dl (12.0-16.0); LYMPHOCYTES # (AUTO) 0.8 X10'3 (1.1-4.8); LYMPHOCYTES % (AUTO) 36.2 % (21-51); MEAN CORPUSCULAR HEMOGLOBIN 32.9 PG (27.0-31.0); MEAN CORPUSCULAR HGB CONC 32.3 g/dL (33.0-36.5); MEAN PLATELET VOLUME 7.9 FL (7.4-10.4); MONOCYTES # (AUTO) 0.2 X10'3 (0-0.9); MONOCYTES % (AUTO) 10.8 % (2-12); NEUTROPHILS % (AUTO) 48.6 % (42-75); PLATELET COUNT 62 X10'3 (140-440); RED BLOOD COUNT 2.53 X10'6 (4.20-5.60); WHITE BLOOD COUNT 2.1 X10'3 (4.5-11.0)
[2023-02-11 06:52] LABS: ALANINE AMINOTRANSFERASE 30 U/L (12-78); ALBUMIN 2.1 G/DL (3.4-5.0); ALKALINE PHOSPHATASE 115 IU/L (46-116); ANION GAP 4 (8-16); ASPARTATE AMINO TRANSFERASE 73 U/L (10-37); BLOOD UREA NITROGEN 11 MG/DL (7-18); BUN/CREATININE RATIO 8.9 (10.0-20.0); CALCIUM 8.5 MG/DL (8.5-10.1); CHLORIDE 105 MMOL/L (99-107); CREATININE 1.24 MG/DL (0.40-0.90); GLUCOSE 94 MG/DL (70-104); POTASSIUM 4.1 MMOL/L (3.5-5.1); SODIUM 139 MMOL/L (135-145); TOTAL CARBON DIOXIDE 30.3 MMOL/L (24-32); eGFR 45 ML/MIN
[2023-02-11 07:08] LABS: ALBUMIN/GLOBULIN RATIO 0.6 (1.1-1.5); TOTAL PROTEIN 5.8 G/DL (6.4-8.2)
[2023-02-11 07:20] LABS: TOTAL CELLS COUNTED 100
[2023-02-11 07:21] LABS: ANISOCYTOSIS 3+; PLATELET ESTIMATE DECREASED; POIKILOCYTOSIS FEW
[2023-02-11] MEDS: docusate sod 100mg capsule PO SCH ×2 (08:00→19:46)
[2023-02-11] MEDS: metoprolol succinate 25mg (24-HOUR) SR. Tablet PO SCH (08:00)
[2023-02-11] MEDS: furosemide 40mg tablet PO SCH (08:58)
[2023-02-11] MEDS: ESCITALOPRAM OXALATE 5 MG TABLET PO SCH (08:58)
[2023-02-11] MEDS: folic acid 0.4mg tablet PO SCH (09:00)
[2023-02-11] MEDS: pantoprazole 40mg Tablet.DR PO SCH (09:00)
[2023-02-11] MEDS: thiamine 100mg tablet PO SCH (09:04)
[2023-02-11] MEDS: magnesium oxide 400mg tablet PO SCH ×2 (09:05→19:46)
[2023-02-11] MEDS: HYDROcodone/acetaminophen 10/325mg tab PO PRN ×3 (09:11→19:50)
[2023-02-11] MEDS: spironolactone 25 MG tablet PO SCH (09:11)
[2023-02-11 11:00] VITALS: BP 113/65
[2023-02-11 15:00] VITALS: BP 110/58
[2023-02-11] MEDS: hydrOXYzine 25 MG tablet PO PRN ×2 (15:00→22:01)
[2023-02-11 18:00] VITALS: BP 119/68
--- NOTE | 2023-02-11 18:02 | NUR ---
Problems reprioritized. Patient report given, questions answered & plan of care reviewed with Daniela CLOUD. Pt just finished visiting with daughter. picking at dinner. Call light in reach. Addendum: 02/11/23 at 1803 by Sheryl Nieto RN Amended: Links added.
--- NOTE | 2023-02-11 18:20 | NUR ---
Patient in room PCU 3025. I have received report from DANIEL CLOUD and had the opportunity to ask questions and assume patient care.
[2023-02-11 22:00] VITALS: BP 102/51
[2023-02-11] MEDS: OLANZAPINE 5 MG TABLET PO SCH (22:00)
[2023-02-11] MEDS: temazepam 15mg capsule PO PRN (22:00)
[2023-02-12 02:00] VITALS: BP 118/66
[2023-02-12] MEDS: HYDROcodone/acetaminophen 10/325mg tab PO PRN ×3 (02:43→12:30)
[2023-02-12] MEDS: lactulose 20gm/30ml cup PO SCH ×3 (02:43→14:00)
--- NOTE | 2023-02-12 06:33 | NUR ---
Problems reprioritized. Patient report given, questions answered & plan of care reviewed with Deion CLOUD.
[2023-02-12] MEDS: pantoprazole 40mg Tablet.DR PO SCH (06:55)
[2023-02-12] MEDS: hydrOXYzine 25 MG tablet PO PRN ×2 (06:57→15:21)
[2023-02-12] MEDS: folic acid 0.4mg tablet PO SCH (07:06)
[2023-02-12] MEDS: spironolactone 25 MG tablet PO SCH (07:06)
[2023-02-12] MEDS: ESCITALOPRAM OXALATE 5 MG TABLET PO SCH (07:06)
[2023-02-12] MEDS: metoprolol succinate 25mg (24-HOUR) SR. Tablet PO SCH (07:07)
[2023-02-12] MEDS: furosemide 40mg tablet PO SCH (07:07)
[2023-02-12] MEDS: magnesium oxide 400mg tablet PO SCH (07:07)
[2023-02-12] MEDS: thiamine 100mg tablet PO SCH (07:08)
[2023-02-12 07:12] LABS: BASOPHILS % (AUTO) 1.1 % (0-1); EOSINOPHILS % (AUTO) 2.3 % (0-6); HEMATOCRIT 23.4 % (35.0-45.0); HEMOGLOBIN 7.7 g/dl (12.0-16.0); LYMPHOCYTES # (AUTO) 0.6 X10'3 (1.1-4.8); LYMPHOCYTES % (AUTO) 35.5 % (21-51); MEAN CORPUSCULAR HEMOGLOBIN 33.6 PG (27.0-31.0); MEAN CORPUSCULAR HGB CONC 33.1 g/dL (33.0-36.5); MEAN CORPUSCULAR VOLUME 101.4 FL (78-98); MEAN PLATELET VOLUME 7.6 FL (7.4-10.4); MONOCYTES # (AUTO) 0.2 X10'3 (0-0.9); MONOCYTES % (AUTO) 12.6 % (2-12); NEUTROPHILS # (AUTO) 0.9 X10'3 (1.8-7.7); NEUTROPHILS % (AUTO) 48.5 % (42-75); PLATELET COUNT 59 X10'3 (140-440); RED CELL DISTRIBUTION WIDTH 29.4 % (11.5-14.5); WHITE BLOOD COUNT 1.8 X10'3 (4.5-11.0)
[2023-02-12 07:13] LABS: ALANINE AMINOTRANSFERASE 28 U/L (12-78); ALBUMIN 2.1 G/DL (3.4-5.0); ALKALINE PHOSPHATASE 105 IU/L (46-116); ANION GAP 7 (8-16); ASPARTATE AMINO TRANSFERASE 64 U/L (10-37); BLOOD UREA NITROGEN 8 MG/DL (7-18); BUN/CREATININE RATIO 7.1 (10.0-20.0); CALCIUM 8.7 MG/DL (8.5-10.1); CHLORIDE 106 MMOL/L (99-107); CREATININE 1.13 MG/DL (0.40-0.90); GLUCOSE 101 MG/DL (70-104); POTASSIUM 4.1 MMOL/L (3.5-5.1); SODIUM 140 MMOL/L (135-145); TOTAL CARBON DIOXIDE 27.5 MMOL/L (24-32); eGFR 50 ML/MIN
[2023-02-12 07:16] LABS: ALBUMIN/GLOBULIN RATIO 0.6 (1.1-1.5); TOTAL PROTEIN 5.9 G/DL (6.4-8.2)
[2023-02-12 07:21] VITALS: BP 108/53
[2023-02-12] MEDS: docusate sod 100mg capsule PO SCH (08:00)
[2023-02-12 08:35] LABS: TOTAL CELLS COUNTED 100
[2023-02-12 08:37] LABS: ANISOCYTOSIS 3+; PLATELET ESTIMATE DECREASED; POLYCHROMASIA FEW
[2023-02-12 08:38] LABS: ACANTHOCYTES FEW; STOMATOCYTES FEW; TEAR DROP CELLS 1+
[2023-02-12 10:27] VITALS: BP_SYST 123; BP_SYST 127; BP_SYST 128; BP_DIAS 65; BP_DIAS 66; BP_DIAS 72
[2023-02-12 10:29] VITALS: BP 127/66
[2023-02-12] MEDS ORDERED: LACT10SO7 PO (12:35)
--- NOTE | 2023-02-12 13:12 | NUR ---
Per Dr. Medley patient to receive one unit of blood transfusion prior to dc and no need to recheck hemogram after transfusion completed.
--- NOTE | 2023-02-12 14:01 | NUR ---
PAGER ID: [phone] MESSAGE: [id number]- Stephanie Jean- still qualifies for home O2. Was 82% on RA when ambulating. Patient states she has pain when she takes deep breath but states it's not new.- Deion [id number]
[2023-02-12] MEDS: traMADol 50MG tablet PO PRN (14:39)
--- NOTE | 2023-02-12 15:55 | NUR ---
Unable to scan expiration bar code on blood bank. Spoke to Elisabet from blood bank and she stated to use down time form. AI Chiu in to be second witness.
--- NOTE | 2023-02-12 17:18 | NUR ---
PAGER ID: [phone] MESSAGE: [id number]- Stephanie Jean- pt still here. transfusion expected to end after shift change. pt states concerned going home tonight and wants to monitor h/h after transfusion completed- Deion [id number]
--- NOTE | 2023-02-12 18:38 | NUR ---
Problems reprioritized. Patient report given, questions answered & plan of care reviewed with Katiana, RN.
--- NOTE | 2023-02-12 19:24 | NUR ---
Pt stable to d/c home, blood infusion complete, no reaction symptoms noted. VSS. Pt PIV LW 20 gauge d/c'd cannul intact. Pt took all belongings and signed paperwork. Pt transferred off floor and safely into family vehicle at approx 1920.
== END 2023-02-12 19:25 | disposition home or self-care (01) | DRG 441 ==
LOC: ER 11:59 → ED HOLD 16:16 → PCU 3S 21:10
PROVIDERS: ADMIT Internal Medicine; ATTEND Internal Medicine
PROC: 30233N1 Transfusion of Nonautologous Red Blood Cells into Peripheral Vein, Percutaneous Approach (ICD-10-PCS; 2023-02-08)
PROC: 0DJ08ZZ Inspection of Upper Intestinal Tract, Via Natural or Artificial Opening Endoscopic (ICD-10-PCS; principal; 2023-02-09)
DX: K76.6 Portal hypertension (principal); J96.01 Acute respiratory failure with hypoxia; K92.2 Gastrointestinal hemorrhage, unspecified; D62 Acute posthemorrhagic anemia; D61.818 Other pancytopenia; J90 Pleural effusion, not elsewhere classified; I85.00 Esophageal varices without bleeding; K92.1 Melena; I50.9 Heart failure, unspecified; K31.89 Other diseases of stomach and duodenum; K74.60 Unspecified cirrhosis of liver; K76.82 Hepatic encephalopathy; K72.10 Chronic hepatic failure without coma; F32.A Depression, unspecified; G47.00 Insomnia, unspecified; N18.30 Chronic kidney disease, stage 3 unspecified; E88.09 Other disorders of plasma-protein metabolism, not elsewhere classified; Z88.2 Allergy status to sulfonamides; Z79.899 Other long term (current) drug therapy
CPT/HCPCS: 36415; 36430; 43227; 71045; 80053; 82140; 83735; 83880; 84145; 84484; 85007; 85008; 85025; 85027; 85610; 86885; 86900; 86901; 86920; 93005; 99152; 99285; A4620; A6258; C9113; G0378; J2250; J2270; J2354; J2405; J3010; J3490; J7030; J7040; J7050; P9016; Q0177

== ENCOUNTER 2023-02-23 05:55 | Day surgery (SDC) | payer MEDICARE ==
[~2023-02-23] VITALS: Ht 160 cm; Wt 69.0 kg
[~2023-02-23 05:55] MED LIST changes: -ALBU17AE26 PO; +LACT10SO7 PO; -METO-384 PO; +METO-395 PO; +PANT-47 PO; -PANT40TA54 PO
[2023-02-23] MEDS ORDERED: LIDOcaine 1%/PF 5ML 10 MG/ML VIAL SQ ONE (06:15)
[2023-02-23] MEDS ORDERED: albumin 25% 100mL bottle x 1 IV PRN (06:20)
[2023-02-23 06:30] VITALS: BP 101/63
[2023-02-23] MEDS ORDERED: LIDOcaine 1%/PF 5ML 10 MG/ML VIAL IJ ONE (07:40)
[2023-02-23 08:26] VITALS: BP 113/73
[2023-02-23 08:30] VITALS: BP 120/71
[2023-02-23 08:45] VITALS: BP 109/68
[2023-02-23 09:00] VITALS: BP 109/64
[2023-02-23 09:17] VITALS: BP 103/55
== END 2023-02-23 08:20 | disposition home or self-care (01) ==
LOC: SSTAY O 05:55
PROVIDERS: ATTEND Radiology Vascular & Interventional Radiology
DX: J90 Pleural effusion, not elsewhere classified (principal); K72.10 Chronic hepatic failure without coma; D69.6 Thrombocytopenia, unspecified; D68.9 Coagulation defect, unspecified; K74.60 Unspecified cirrhosis of liver; N18.6 End stage renal disease; K70.10 Alcoholic hepatitis without ascites; M81.0 Age-related osteoporosis without current pathological fracture; N17.0 Acute kidney failure with tubular necrosis; Z88.2 Allergy status to sulfonamides; Z79.899 Other long term (current) drug therapy; Z90.49 Acquired absence of other specified parts of digestive tract; Z98.890 Other specified postprocedural states; Z72.89 Other problems related to lifestyle; F12.90 Cannabis use, unspecified, uncomplicated
CPT/HCPCS: 32555; J3490; A4615

== ENCOUNTER 2023-04-06 18:07 | Emergency (ER) | payer MEDICARE ==
[~2023-04-06] VITALS: Ht 160 cm; Wt 70.5 kg
[2023-04-06 18:23] VITALS: BP 105/55
[2023-04-06 18:48] LABS: BASOPHILS % (AUTO) 0.4 % (0-1); EOSINOPHILS # (AUTO) 0.1 X10'3 (0-0.9); EOSINOPHILS % (AUTO) 1.9 % (0-6); HEMATOCRIT 26.8 % (35.0-45.0); HEMOGLOBIN 8.9 g/dl (12.0-16.0); LYMPHOCYTES # (AUTO) 2.2 X10'3 (1.1-4.8); MEAN CORPUSCULAR HGB CONC 33.3 g/dL (33.0-36.5); MEAN PLATELET VOLUME 7.1 FL (7.4-10.4); MONOCYTES # (AUTO) 0.5 X10'3 (0-0.9); MONOCYTES % (AUTO) 8.5 % (2-12); NEUTROPHILS % (AUTO) 51.2 % (42-75); PLATELET COUNT 124 X10'3 (140-440); RED BLOOD COUNT 2.62 X10'6 (4.20-5.60); RED CELL DISTRIBUTION WIDTH 19.1 % (11.5-14.5); WHITE BLOOD COUNT 5.9 X10'3 (4.5-11.0)
[2023-04-06 19:05] LABS: ALANINE AMINOTRANSFERASE 25 U/L (12-78); ALBUMIN 2.6 G/DL (3.4-5.0); ALBUMIN/GLOBULIN RATIO 0.6 (1.1-1.5); ALKALINE PHOSPHATASE 127 IU/L (46-116); ANION GAP 14 (8-16); ASPARTATE AMINO TRANSFERASE 56 U/L (10-37); BILIRUBIN,TOTAL 6.8 MG/DL (0.1-1.0); BLOOD UREA NITROGEN 8 MG/DL (7-18); BUN/CREATININE RATIO 8.4 (10.0-20.0); CALCIUM 7.8 MG/DL (8.5-10.1); CHLORIDE 101 MMOL/L (99-107); CREATININE 0.95 MG/DL (0.40-0.90); GLUCOSE 80 MG/DL (70-104); LIPASE 208 U/L (73-393); SODIUM 139 MMOL/L (135-145); TOTAL CARBON DIOXIDE 24.2 MMOL/L (24-32); TOTAL PROTEIN 7.2 G/DL (6.4-8.2); eGFR 61 ML/MIN
[2023-04-06 19:12] LABS: URINE HCG NEGATIVE (NEG)
[2023-04-06 19:18] LABS: CLARITY,URINE SLIGHTLY CLOUDY (Clear); COLOR,URINE YELLOW (Yellow); GLUCOSE, URINE NEGATIVE (Neg); KETONES,URINE NEGATIVE (Neg); LEUKOCYTE ESTERASE ,URINE NEGATIVE (Neg); NITRITES, URINE NEGATIVE (Neg); OCCULT BLOOD,URINE NEGATIVE (Neg); PH,URINE 5.5 (4.8-8.0); PROTEIN,URINE NEGATIVE (Neg); UROBILINOGEN,URINE 0.2 E.U/dL (0.2-1.0)
[2023-04-06 19:20] LABS: POTASSIUM 2.8 MMOL/L (3.5-5.1)
[2023-04-06 19:25] LABS: UA COLLECTION TYPE CLN CATCH MIDSTREAM
[2023-04-06 19:30] LABS: BACTERIA,URINE 2+ /HPF (Neg); RBC,URINE 0-2 /HPF (0-2); SQUAMOUS EPITHELIAL CELL,UR MANY /LPF (FEW); WBC,URINE 0-4 /HPF (0-4)
[2023-04-06 20:19] LABS: ANISOCYTOSIS 2+; PLATELET ESTIMATE DECREASED
[2023-04-06 20:21] LABS: POLYCHROMASIA FEW; TEAR DROP CELLS FEW
== END 2023-04-06 22:48 | disposition left against medical advice (07) ==
LOC: ER 18:08
DX: K92.2 Gastrointestinal hemorrhage, unspecified (principal); Z53.21 Procedure and treatment not carried out due to patient leaving prior to being seen by health care provider
CPT/HCPCS: 36415; 80053; 81001; 81025; 83690; 85008; 85025; 99281; A4615

== ENCOUNTER 2023-06-20 03:24 | Inpatient (IN) | payer MEDICARE ==
[~2023-06-20] VITALS: Ht 160 cm; Wt 68.2 kg
[2023-06-20] VITALS (20 sets, daily range): BP systolic 95–130; BP diastolic 48–70; PULSE 68–90; RESP 13–22; TEMP 97–98.5; O2SAT 92–100
[2023-06-20] MEDS ORDERED: metoclopramide 5 mg/ml inj IV ONE (03:55)
[2023-06-20] MEDS ORDERED: diphenhydrAMINE 50 mg/ml inj IV ONE (03:55)
[2023-06-20] MEDS ORDERED: pantoprazole 40MG/NS 100ML BAG 100 ML IV ONE (03:55)
[2023-06-20] MEDS ORDERED: pantoprazole 40mg IV 80 MG in normal saline 100ml IV soln 100 ML IV ONE (03:55)
[2023-06-20] MEDS ORDERED: ringers solution, lacted 1,000 ML IV ONE (04:45)
[2023-06-20] MEDS: pantoprazole 40MG/NS 100ML BAG 100 ML IV SCH ×4 (05:02→21:00)
[2023-06-20 05:10] LABS: OCCULT BLOOD STOOL POSITIVE (Neg)
[2023-06-20] MEDS ORDERED: iohexol 300mg/ml 100ml inj. ONE (05:11)
[2023-06-20 05:18] LABS: BASOPHILS % (AUTO) 1.2 % (0-1); LYMPHOCYTES # (AUTO) 0.2 X10'3 (1.1-4.8); LYMPHOCYTES % (AUTO) 13.4 % (21-51); MEAN CORPUSCULAR HEMOGLOBIN 33.8 PG (27.0-31.0); MEAN CORPUSCULAR HGB CONC 31.9 g/dL (33.0-36.5); MEAN PLATELET VOLUME 8.8 FL (7.4-10.4); MONOCYTES # (AUTO) 0.2 X10'3 (0-0.9); MONOCYTES % (AUTO) 8.4 % (2-12); NEUTROPHILS # (AUTO) 1.4 X10'3 (1.8-7.7); PLATELET COUNT 55 X10'3 (140-440); RED BLOOD COUNT 1.87 X10'6 (4.20-5.60); RED CELL DISTRIBUTION WIDTH 18.5 % (11.5-14.5); WHITE BLOOD COUNT 1.9 X10'3 (4.5-11.0)
[2023-06-20 05:27] LABS: HEMATOCRIT 19.8 % (35.0-45.0); HEMOGLOBIN 6.3 g/dl (12.0-16.0)
[2023-06-20 05:29] LABS: APTT 30 SECONDS (22-32); INR 1.7 INR; PROTHROMBIN TIME 17.7 SECONDS (9.0-12.0)
[2023-06-20 05:35] LABS: ALANINE AMINOTRANSFERASE 30 U/L (12-78); ALBUMIN 2.6 G/DL (3.4-5.0); ALKALINE PHOSPHATASE 125 IU/L (46-116); AMYLASE 68 U/L (25-115); ANION GAP 11 (8-16); ASPARTATE AMINO TRANSFERASE 69 U/L (10-37); BLOOD UREA NITROGEN 9 MG/DL (7-18); BUN/CREATININE RATIO 8.6 (10.0-20.0); CHLORIDE 99 MMOL/L (99-107); CREATININE 1.05 MG/DL (0.40-0.90); ETHANOL < 10 MG/DL (<10); GLUCOSE 138 MG/DL (70-104); LIPASE 109 U/L (73-393); POTASSIUM 3.5 MMOL/L (3.5-5.1); SODIUM 135 MMOL/L (135-145); TOTAL CARBON DIOXIDE 24.9 MMOL/L (24-32); eCRCL 49 ML/MIN; eGFR 54 ML/MIN
[2023-06-20 05:47] LABS: CALCIUM 9.5 MG/DL (8.5-10.1)
[2023-06-20 05:48] LABS: ALBUMIN/GLOBULIN RATIO 0.7 (1.1-1.5); TOTAL PROTEIN 6.6 G/DL (6.4-8.2)
[2023-06-20 06:13] LABS: ANISOCYTOSIS 2+; PLATELET ESTIMATE DECREASED; TEAR DROP CELLS 1+; TOTAL CELLS COUNTED 100
[2023-06-20 06:14] LABS: POLYCHROMASIA FEW
[2023-06-20] MEDS ORDERED: morphine 4 MG/ML inj SYRINge IV ONE (06:35)
[2023-06-20 06:48] LABS: URINE AMPHETAMINE SCREEN NEGATIVE (Neg); URINE BARBITUATE SCREEN NEGATIVE (Neg); URINE BENZODIAZEPINES SCREEN NEGATIVE (Neg); URINE CANNABINOID SCREEN POSITIVE (Neg); URINE COCAINE SCREEN NEGATIVE (Neg); URINE METHADONE SCREEN NEGATIVE (Neg); URINE OPIATE SCREEN NEGATIVE (Neg); URINE PHENCYCLIDINE SCREEN NEGATIVE (Neg)
[2023-06-20 07:21] LABS: BILIRUBIN,URINE NEGATIVE (Neg); CLARITY,URINE CLEAR (Clear); COLOR,URINE YELLOW (Yellow); GLUCOSE, URINE NEGATIVE (Neg); KETONES,URINE NEGATIVE (Neg); LEUKOCYTE ESTERASE ,URINE NEGATIVE (Neg); NITRITES, URINE NEGATIVE (Neg); OCCULT BLOOD,URINE NEGATIVE (Neg); PROTEIN,URINE NEGATIVE (Neg); UROBILINOGEN,URINE 0.2 E.U/dL (0.2-1.0)
[2023-06-20 07:26] LABS: UA COLLECTION TYPE CLN CATCH MIDSTREAM
[2023-06-20] MEDS ORDERED: piperacillin/tazo 4.5gm/100ml 100 ML IV ONE (08:00)
--- NOTE | 2023-06-20 08:08 | NUR ---
Primary RN relieved for break.
[2023-06-20] MEDS ORDERED: octreotide inj. 500 MCG in normal saline 100ml IV soln 97.5 ML IV ONE (08:25)
[2023-06-20] MEDS ORDERED: octreotide 100mcg/1 ml ampule IV ONE (08:35)
--- NOTE | 2023-06-20 08:38 | NUR ---
SPOKE TO PHARMACIST ERMELINDA AND CHECKED THE CLINICAL PHARM FOR VERFICATION OF MEDS BEFORE INTINIATING {ZYOSIN AND SANDOSTATIN } AND THEY ARE COMPATABLE.
[2023-06-20] MEDS ORDERED: potassium Cl 40MEQ/1/2NS 520ml 520 ML IV PRN (08:40)
[2023-06-20] MEDS ORDERED: potassium Cl 20 mEq SR tablet PO PRN ×2 (08:40)
[2023-06-20] MEDS ORDERED: magnesium 2GM in 50ml NS 50 ML IV PRN (08:40)
[2023-06-20] MEDS ORDERED: magnesium Cl slow-release 64mg tablet PO PRN (08:40)
[2023-06-20] MEDS ORDERED: magnesium 4gm in 100ml NS 100 ML IV PRN (08:40)
[2023-06-20] MEDS ORDERED: ondansetron/PF 4mg/2ml inj IV PRN (08:40)
[2023-06-20] MEDS ORDERED: haloperidol 5mg tablet PO PRN (08:45)
[2023-06-20] MEDS ORDERED: haloperidol lactate 5mg/ml inj IM PRN (08:45)
[2023-06-20] MEDS ORDERED: LORazepam 2 mg/ml vial IV PRN ×2 (08:45→18:40)
[2023-06-20] MEDS: normal saline 1000ml 1,000 ML IV SCH ×2 (09:04→22:57)
[2023-06-20 09:37] LABS: BASOPHILS % (AUTO) 1.2 % (0-1); HEMATOCRIT 22.5 % (35.0-45.0); HEMOGLOBIN 7.5 g/dl (12.0-16.0); LYMPHOCYTES # (AUTO) 0.3 X10'3 (1.1-4.8); LYMPHOCYTES % (AUTO) 15.7 % (21-51); MEAN CORPUSCULAR HEMOGLOBIN 34.4 PG (27.0-31.0); MEAN CORPUSCULAR HGB CONC 33.1 g/dL (33.0-36.5); MEAN CORPUSCULAR VOLUME 103.8 FL (78-98); MEAN PLATELET VOLUME 8.3 FL (7.4-10.4); MONOCYTES # (AUTO) 0.2 X10'3 (0-0.9); MONOCYTES % (AUTO) 10.5 % (2-12); NEUTROPHILS # (AUTO) 1.2 X10'3 (1.8-7.7); NEUTROPHILS % (AUTO) 71.6 % (42-75); PLATELET COUNT 52 X10'3 (140-440); RED BLOOD COUNT 2.17 X10'6 (4.20-5.60); RED CELL DISTRIBUTION WIDTH 19.3 % (11.5-14.5); WHITE BLOOD COUNT 1.6 X10'3 (4.5-11.0)
--- NOTE | 2023-06-20 09:46 | NUR ---
called resident dr coker regarding pt h/hct informed that pt hb is 7.5 and no BM for the junior technical writer ,as per md hold the bld transfusion ,md will call the junior technical writer if bld transfusion is needed.will wait for the orders and follow the orders.
[2023-06-20 09:54] LABS: BILIRUBIN,DIRECT 3.4 MG/DL (0-0.3)
[2023-06-20] MEDS: folic acid 1mg/0.2ml inj IV SCH (10:00)
[2023-06-20 11:05] LABS: RED BLOOD COUNT 2.2 X10'6 (4.20-5.60); RETICULOCYTE % (AUTO) 5.1 % (0.5-1.5)
[2023-06-20] MEDS: HYDROmorphone inj. 0.5 MG/0.5 ML DISP.SYRIN IV PRN (11:46)
[2023-06-20] MEDS: thiamine 100mg/ml 2ml inj. IV SCH ×2 (13:00→22:41)
[2023-06-20] MEDS ORDERED: SUCR1TAB PO (13:39)
[2023-06-20] MEDS ORDERED: PANT20TA18 PO (13:39)
[2023-06-20] MEDS ORDERED: LIDOcaine Viscous 15ml cup ONE (15:03)
[2023-06-20] MEDS ORDERED: fentaNYL/PF 50MCG/1 ML 2ML syringe ONE (15:03)
[2023-06-20] MEDS ORDERED: MIDAZolam 1 MG/ML 5ML VIAL ONE (15:03)
[2023-06-20] MEDS: CefTRIAXone/D5W-Rocephin 1gm 50 ML IV SCH (16:42)
--- NOTE | 2023-06-20 16:54 | NUR ---
Called Dr Urias she is aware patient is back from EGD and report is in the chart. Per Dr Urias she will come back after clinic.
[2023-06-20] MEDS ORDERED: hydrOXYzine 25 MG tablet PO PRN (18:00)
[2023-06-20] MEDS ORDERED: octreotide inj. 500 MCG in normal saline 100ml IV soln 97.5 ML IV SCH (18:10)
--- NOTE | 2023-06-20 18:10 | NUR ---
Problems reprioritized. Patient report given, questions answered & plan of care reviewed with Kandy CLOUD.
--- NOTE | 2023-06-20 18:33 | NUR ---
Problems reprioritized. Patient report given, questions answered & plan of care reviewed with Shivani CLOUD. Shivani aware Resident will be coming by to see patient. Patient appears to be going through some withdrawls but patient has on her Allergies she is allergic to Ativan. Per Patient she gets very sedated on Ativan and would like to take very low dose. Shivani CLOUD aware.
[2023-06-20] MEDS: K and/or MAG REPLACEMENT MC SCH (19:54)
[2023-06-20] MEDS: carVEDilol 3.125mg tablet PO SCH (20:26)
[2023-06-20] MEDS: OLANZAPINE 5 MG TABLET PO SCH (20:27)
--- NOTE | 2023-06-20 22:15 | NUR ---
PT SAYS SHE HAS REACTION TO ATIVAN SPOKE TO DR SEWELL WHO ORDERED 5 MG VALIUM INSTEAD FOR ETOH PROTOCOL.
[2023-06-20] MEDS: diazepam inj 5 MG/ML inj. IV PRN (22:40)
--- NOTE | 2023-06-20 23:53 | NUR ---
Student documentation: I have reviewed interventions, assessments performed and documented by Ayo WELLS [facility].
[2023-06-21] VITALS (9 sets, daily range): BP systolic 96–138; BP diastolic 49–58; PULSE 70–92; RESP 12–19; TEMP 97.5–98.3; O2SAT 91–99
[2023-06-21] MEDS: diazepam inj 5 MG/ML inj. IV PRN ×2 (00:58→13:39)
[2023-06-21] MEDS: pantoprazole 40MG/NS 100ML BAG 100 ML IV SCH ×5 (01:19→21:57)
[2023-06-21] MEDS ORDERED: octreotide inj. 1,250 MCG in normal saline 250ml IV soln 243.75 ML IV SCH (04:30)
[2023-06-21] MEDS: normal saline 1000ml 1,000 ML IV SCH ×2 (04:40→10:07)
--- NOTE | 2023-06-21 06:30 | NUR ---
Patient in room PCU 3016. I have received report from boyd erwin and had the opportunity to ask questions and assume patient care.
--- NOTE | 2023-06-21 06:59 | NUR ---
Problems reprioritized. Patient report given, questions answered & plan of care reviewed with AI LOUISE. ASPEN MADE AWARE THAT PATIENT HAS REACTION TO ATIVAN AND THAT THE VALIUM WAS ORDERED TO BE USED INSTEAD OF ATIVAN. PHARMACY WAS MESSAGED TO DC THE ATIVAN SINCE THE PATIENT HAS A SENSITIVITY TO IT.
[2023-06-21] MEDS: furosemide 40mg tablet PO SCH (08:00)
[2023-06-21] MEDS: K and/or MAG REPLACEMENT MC SCH ×2 (08:00→20:00)
[2023-06-21] MEDS: carVEDilol 3.125mg tablet PO SCH ×2 (08:00→20:23)
[2023-06-21] MEDS: spironolactone 50 MG tablet PO SCH (08:00)
[2023-06-21] MEDS: multivitamins, therapeutics tablet PO SCH (08:00)
[2023-06-21 08:22] LABS: BASOPHILS % (AUTO) 0.7 % (0-1); EOSINOPHILS # (AUTO) 0.1 X10'3 (0-0.9); EOSINOPHILS % (AUTO) 3.9 % (0-6); HEMOGLOBIN 7.1 g/dl (12.0-16.0); LYMPHOCYTES # (AUTO) 0.5 X10'3 (1.1-4.8); LYMPHOCYTES % (AUTO) 27.7 % (21-51); MEAN CORPUSCULAR HEMOGLOBIN 34.4 PG (27.0-31.0); MEAN CORPUSCULAR HGB CONC 32.4 g/dL (33.0-36.5); MEAN CORPUSCULAR VOLUME 106.4 FL (78-98); MONOCYTES # (AUTO) 0.1 X10'3 (0-0.9); MONOCYTES % (AUTO) 7.9 % (2-12); NEUTROPHILS # (AUTO) 1.1 X10'3 (1.8-7.7); NEUTROPHILS % (AUTO) 59.8 % (42-75); PLATELET COUNT 52 X10'3 (140-440); RED BLOOD COUNT 2.07 X10'6 (4.20-5.60); RED CELL DISTRIBUTION WIDTH 20.8 % (11.5-14.5); WHITE BLOOD COUNT 1.8 X10'3 (4.5-11.0)
[2023-06-21] MEDS: ESCITALOPRAM OXALATE 5 MG TABLET PO SCH (08:31)
[2023-06-21] MEDS: sucralfate 1 gm tablet PO SCH ×3 (08:42→17:00)
[2023-06-21 08:53] LABS: ALANINE AMINOTRANSFERASE 24 U/L (12-78); ALBUMIN 2.1 G/DL (3.4-5.0); ALKALINE PHOSPHATASE 69 IU/L (46-116); ANION GAP 9 (8-16); ASPARTATE AMINO TRANSFERASE 64 U/L (10-37); BILIRUBIN,TOTAL 8.5 MG/DL (0.1-1.0); BLOOD UREA NITROGEN 8 MG/DL (7-18); BUN/CREATININE RATIO 8.7 (10.0-20.0); CALCIUM 8.3 MG/DL (8.5-10.1); CHLORIDE 108 MMOL/L (99-107); CREATININE 0.92 MG/DL (0.40-0.90); GLUCOSE 109 MG/DL (70-104); MAGNESIUM 1.5 MG/DL (1.5-2.4); POTASSIUM 4.2 MMOL/L (3.5-5.1); SODIUM 142 MMOL/L (135-145); TOTAL CARBON DIOXIDE 25.5 MMOL/L (24-32); eCRCL 56 ML/MIN; eGFR 63 ML/MIN
[2023-06-21 08:57] LABS: ALBUMIN/GLOBULIN RATIO 0.6 (1.1-1.5); TOTAL PROTEIN 5.4 G/DL (6.4-8.2)
[2023-06-21] MEDS: HYDROmorphone inj. 0.5 MG/0.5 ML DISP.SYRIN IV PRN ×2 (09:20→20:25)
[2023-06-21 10:03] LABS: HEMATOCRIT 24.1 % (35.0-45.0); HEMOGLOBIN 7.7 g/dl (12.0-16.0); MEAN CORPUSCULAR HEMOGLOBIN 34.5 PG (27.0-31.0); MEAN CORPUSCULAR HGB CONC 31.8 g/dL (33.0-36.5); MEAN CORPUSCULAR VOLUME 108.6 FL (78-98); PLATELET COUNT 55 X10'3 (140-440); RED BLOOD COUNT 2.22 X10'6 (4.20-5.60); RED CELL DISTRIBUTION WIDTH 22.3 % (11.5-14.5); WHITE BLOOD COUNT 1.8 X10'3 (4.5-11.0)
[2023-06-21] MEDS: thiamine 100mg/ml 2ml inj. IV SCH ×3 (10:08→20:25)
[2023-06-21] MEDS: octreotide inj. 500 MCG in normal saline 100ml IV soln 97.5 ML IV SCH ×2 (10:23→23:16)
[2023-06-21 10:24] LABS: NUCLEATED RED BLOOD CELLS 1 /100WBC (0-0); TOTAL CELLS COUNTED 100
[2023-06-21 10:26] LABS: ANISOCYTOSIS 3+; PLATELET ESTIMATE DECREASED; POLYCHROMASIA 1+
[2023-06-21 10:51] LABS: SMUDGE CELLS FEW
--- NOTE | 2023-06-21 11:05 | NUR ---
Student documentation: I have reviewed and agree with all interventions, assessments performed and documented by Silva CLOUD.
[2023-06-21] MEDS: folic acid 1mg/0.2ml inj IV SCH (11:54)
[2023-06-21] MEDS: CefTRIAXone/D5W-Rocephin 1gm 50 ML IV SCH (12:40)
--- NOTE | 2023-06-21 14:00 | NUR ---
called nursing sup re: evs spotted cockroach on pts bed. she states that pt needs belongings taken out of room, informed her that pt only has purse with her. she didnt want us to take pts purse but requested that we go through it to make sure we didnt see any more bugs. i req nursing to student to obtain pts permission and look through purse, which she did. no additional bugs were spotted.
--- NOTE | 2023-06-21 14:00 | NUR ---
Was instructed by RN to look for bugs in patient's room/belongings. Before looking through patient's purse, I asked for permission and explained the reason. Patient agreed to let me go through her belongings. I wore gloves and placed the purse right in front of patient so she could see what I was doing. No bugs were found in her personal belongings or room.
--- NOTE | 2023-06-21 19:15 | NUR ---
Problems reprioritized. Patient report given, questions answered & plan of care reviewed with alberto erwin.
--- NOTE | 2023-06-21 19:16 | NUR ---
Patient in room PCU 3019. I have received report from ASPEN CLOUD and had the opportunity to ask questions and assume patient care.
[2023-06-21] MEDS: lactulose 20gm/30ml cup PO SCH (20:00)
[2023-06-21] MEDS: rifaximin 550mg tablet PO SCH (20:22)
[2023-06-21] MEDS: OLANZAPINE 5 MG TABLET PO SCH (20:23)
[2023-06-22] VITALS (10 sets, daily range): BP systolic 94–128; BP diastolic 45–76; PULSE 71–88; RESP 14–22; TEMP 97.7–99; O2SAT 90–94
[2023-06-22] MEDS: normal saline 1000ml 1,000 ML IV SCH ×3 (00:40→10:40)
[2023-06-22] MEDS: lactulose 20gm/30ml cup PO SCH ×4 (02:00→19:19)
[2023-06-22] MEDS: diazepam inj 5 MG/ML inj. IV PRN ×2 (02:54→23:29)
[2023-06-22] MEDS: pantoprazole 40MG/NS 100ML BAG 100 ML IV SCH ×5 (03:00→19:37)
--- NOTE | 2023-06-22 06:30 | NUR ---
Problems reprioritized. Patient report given, questions answered & plan of care reviewed with RADHA CLOUD.
--- NOTE | 2023-06-22 06:45 | NUR ---
Patient in room PCU 3019. I have received report from Nasima Del Real RN and had the opportunity to ask questions and assume patient care.Pt awake, amb to bathroom. Call light in reach. Addendum: 06/22/23 at 0701 by Sheryl Nieto RN Amended: Links added.
[2023-06-22 07:21] LABS: BASOPHILS % (AUTO) 0.8 % (0-1); EOSINOPHILS # (AUTO) 0.1 X10'3 (0-0.9); EOSINOPHILS % (AUTO) 4.2 % (0-6); LYMPHOCYTES # (AUTO) 0.5 X10'3 (1.1-4.8); LYMPHOCYTES % (AUTO) 32.1 % (21-51); MEAN CORPUSCULAR HEMOGLOBIN 34.6 PG (27.0-31.0); MEAN CORPUSCULAR HGB CONC 32.3 g/dL (33.0-36.5); MEAN CORPUSCULAR VOLUME 107.1 FL (78-98); MEAN PLATELET VOLUME 7.9 FL (7.4-10.4); MONOCYTES # (AUTO) 0.2 X10'3 (0-0.9); MONOCYTES % (AUTO) 9.6 % (2-12); NEUTROPHILS # (AUTO) 0.9 X10'3 (1.8-7.7); NEUTROPHILS % (AUTO) 53.3 % (42-75); PLATELET COUNT 56 X10'3 (140-440); RED BLOOD COUNT 2.02 X10'6 (4.20-5.60); RED CELL DISTRIBUTION WIDTH 21.3 % (11.5-14.5); WHITE BLOOD COUNT 1.7 X10'3 (4.5-11.0)
[2023-06-22 07:31] LABS: HEMATOCRIT 21.6 % (35.0-45.0)
[2023-06-22 07:33] LABS: ALANINE AMINOTRANSFERASE 23 U/L (12-78); ALKALINE PHOSPHATASE 72 IU/L (46-116); ANION GAP 7 (8-16); ASPARTATE AMINO TRANSFERASE 66 U/L (10-37); BILIRUBIN,TOTAL 6.5 MG/DL (0.1-1.0); BLOOD UREA NITROGEN 8 MG/DL (7-18); BUN/CREATININE RATIO 7.9 (10.0-20.0); CALCIUM 8.2 MG/DL (8.5-10.1); CHLORIDE 109 MMOL/L (99-107); CREATININE 1.01 MG/DL (0.40-0.90); GLUCOSE 103 MG/DL (70-104); MAGNESIUM 1.5 MG/DL (1.5-2.4); POTASSIUM 4.2 MMOL/L (3.5-5.1); SODIUM 140 MMOL/L (135-145); TOTAL CARBON DIOXIDE 24.4 MMOL/L (24-32); eCRCL 51 ML/MIN; eGFR 56 ML/MIN
[2023-06-22 07:47] LABS: ALBUMIN/GLOBULIN RATIO 0.6 (1.1-1.5); TOTAL PROTEIN 5.4 G/DL (6.4-8.2)
[2023-06-22] MEDS ORDERED: rocuronium 10mg/ml inj IV ONE (08:00)
[2023-06-22] MEDS ORDERED: etomidate 2mg/ml inj. ONE (08:00)
[2023-06-22] MEDS ORDERED: sodium bicarbonate (8.4%) 1 mEq/ml syringe ONE (08:00)
[2023-06-22] MEDS: multivitamins, therapeutics tablet PO SCH (08:00)
[2023-06-22] MEDS: K and/or MAG REPLACEMENT MC SCH ×2 (08:00→20:00)
[2023-06-22] MEDS ORDERED: epiNEPHrine 0.1mg/ml 10ml syringe ONE (08:00)
[2023-06-22] MEDS ORDERED: sod chloride 0.9% 10ml flush syringe IV ONE (08:00)
[2023-06-22] MEDS: CefTRIAXone/D5W-Rocephin 1gm 50 ML IV SCH (08:12)
[2023-06-22] MEDS: thiamine 100mg/ml 2ml inj. IV SCH ×3 (08:21→21:05)
[2023-06-22] MEDS: ESCITALOPRAM OXALATE 5 MG TABLET PO SCH (08:21)
[2023-06-22] MEDS: sucralfate 1 gm tablet PO SCH ×3 (08:24→17:01)
[2023-06-22] MEDS ORDERED: LORazepam 2 mg/ml vial IV PRN ×2 (08:45)
[2023-06-22] MEDS ORDERED: LORazepam 1 MG tablet PO PRN ×2 (08:45)
[2023-06-22] MEDS: HYDROmorphone inj. 0.5 MG/0.5 ML DISP.SYRIN IV PRN (08:57)
[2023-06-22] MEDS: folic acid 1mg/0.2ml inj IV SCH (10:47)
[2023-06-22] MEDS: furosemide 40mg tablet PO SCH (10:53)
[2023-06-22] MEDS: carVEDilol 3.125mg tablet PO SCH ×2 (10:53→19:19)
[2023-06-22] MEDS: rifaximin 550mg tablet PO SCH ×2 (11:09→19:19)
[2023-06-22] MEDS: spironolactone 50 MG tablet PO SCH (11:11)
[2023-06-22 11:58] LABS: TOTAL CELLS COUNTED 100
[2023-06-22 11:59] LABS: ANISOCYTOSIS 3+; PLATELET ESTIMATE DECREASED; SMUDGE CELLS 1+; TEAR DROP CELLS FEW
[2023-06-22 12:01] LABS: POLYCHROMASIA FEW
--- NOTE | 2023-06-22 18:32 | NUR ---
Problems reprioritized. Patient report given, questions answered & plan of care reviewed with Ngozi CLOUD. Addendum: 06/22/23 at 1832 by Sheryl Nieto RN Amended: Links added.
[2023-06-22] MEDS: HYDROmorphone/PF 0.2 MG/ML SYRINGE IV PRN (19:19)
[2023-06-22 20:32] LABS: BASOPHILS % (AUTO) 0.7 % (0-1); EOSINOPHILS # (AUTO) 0.1 X10'3 (0-0.9); EOSINOPHILS % (AUTO) 3.1 % (0-6); HEMOGLOBIN 8.7 g/dl (12.0-16.0); LYMPHOCYTES # (AUTO) 0.7 X10'3 (1.1-4.8); LYMPHOCYTES % (AUTO) 29.2 % (21-51); MEAN CORPUSCULAR HEMOGLOBIN 33.3 PG (27.0-31.0); MEAN CORPUSCULAR HGB CONC 32.2 g/dL (33.0-36.5); MEAN CORPUSCULAR VOLUME 103.6 FL (78-98); MEAN PLATELET VOLUME 7.8 FL (7.4-10.4); MONOCYTES # (AUTO) 0.2 X10'3 (0-0.9); MONOCYTES % (AUTO) 9.9 % (2-12); NEUTROPHILS # (AUTO) 1.3 X10'3 (1.8-7.7); NEUTROPHILS % (AUTO) 57.1 % (42-75); PLATELET COUNT 64 X10'3 (140-440); RED CELL DISTRIBUTION WIDTH 22.2 % (11.5-14.5); WHITE BLOOD COUNT 2.2 X10'3 (4.5-11.0)
[2023-06-22] MEDS: OLANZAPINE 5 MG TABLET PO SCH (21:05)
[2023-06-22 22:11] LABS: TOTAL CELLS COUNTED 100
[2023-06-22 22:20] LABS: PLATELET ESTIMATE DECREASED
[2023-06-22 22:21] LABS: ANISOCYTOSIS 3+; POLYCHROMASIA FEW
[2023-06-22 22:24] LABS: SCHISTOCYTES FEW; SMUDGE CELLS 1+; TEAR DROP CELLS FEW
[2023-06-23] VITALS (7 sets, daily range): BP systolic 104–129; BP diastolic 53–71; PULSE 65–79; RESP 10–22; TEMP 97.7–99.6; O2SAT 92–95
[2023-06-23] MEDS: HYDROmorphone/PF 0.2 MG/ML SYRINGE IV PRN ×3 (02:22→22:27)
[2023-06-23] MEDS: lactulose 20gm/30ml cup PO SCH ×4 (02:22→21:24)
--- NOTE | 2023-06-23 06:13 | NUR ---
atient report given, questions answered & plan of care reviewed with AI Tirado
--- NOTE | 2023-06-23 06:28 | NUR ---
Patient in room PCU 3019. I have received report from Ngozi CLOUD and had the opportunity to ask questions and assume patient care.Pt sleeping, No distress.Call light in reach. Addendum: 06/23/23 at 0629 by Sheryl Nieto RN Amended: Links added.
[2023-06-23 06:48] LABS: BASOPHILS % (AUTO) 0.9 % (0-1); EOSINOPHILS # (AUTO) 0.1 X10'3 (0-0.9); EOSINOPHILS % (AUTO) 3.4 % (0-6); HEMATOCRIT 26.3 % (35.0-45.0); HEMOGLOBIN 8.7 g/dl (12.0-16.0); LYMPHOCYTES # (AUTO) 0.7 X10'3 (1.1-4.8); MEAN CORPUSCULAR HEMOGLOBIN 34.1 PG (27.0-31.0); MEAN CORPUSCULAR VOLUME 103.3 FL (78-98); MEAN PLATELET VOLUME 7.4 FL (7.4-10.4); MONOCYTES # (AUTO) 0.2 X10'3 (0-0.9); MONOCYTES % (AUTO) 10.7 % (2-12); PLATELET COUNT 59 X10'3 (140-440); RED BLOOD COUNT 2.54 X10'6 (4.20-5.60); RED CELL DISTRIBUTION WIDTH 22.6 % (11.5-14.5)
[2023-06-23 06:59] LABS: ALANINE AMINOTRANSFERASE 22 U/L (12-78); ALBUMIN 2.2 G/DL (3.4-5.0); ALKALINE PHOSPHATASE 70 IU/L (46-116); ANION GAP 6 (8-16); ASPARTATE AMINO TRANSFERASE 69 U/L (10-37); BILIRUBIN,TOTAL 8.4 MG/DL (0.1-1.0); BLOOD UREA NITROGEN 8 MG/DL (7-18); BUN/CREATININE RATIO 7.5 (10.0-20.0); CALCIUM 8.3 MG/DL (8.5-10.1); CHLORIDE 107 MMOL/L (99-107); CREATININE 1.07 MG/DL (0.40-0.90); GLUCOSE 91 MG/DL (70-104); MAGNESIUM 1.3 MG/DL (1.5-2.4); POTASSIUM 3.9 MMOL/L (3.5-5.1); SODIUM 139 MMOL/L (135-145); TOTAL CARBON DIOXIDE 26.2 MMOL/L (24-32); eCRCL 48 ML/MIN; eGFR 53 ML/MIN
[2023-06-23 07:02] LABS: ALBUMIN/GLOBULIN RATIO 0.6 (1.1-1.5); PHOSPHORUS 2.9 MG/DL (2.3-4.5); TOTAL PROTEIN 5.7 G/DL (6.4-8.2)
[2023-06-23 07:45] LABS: ANISOCYTOSIS 3+; PLATELET ESTIMATE DECREASED; POLYCHROMASIA FEW; SCHISTOCYTES FEW; TEAR DROP CELLS FEW; TOTAL CELLS COUNTED 100
[2023-06-23] MEDS: pantoprazole 40MG/NS 100ML BAG 100 ML IV SCH (07:55)
[2023-06-23] MEDS: CefTRIAXone/D5W-Rocephin 1gm 50 ML IV SCH (07:55)
[2023-06-23] MEDS: furosemide 40mg tablet PO SCH (07:57)
[2023-06-23] MEDS: multivitamins, therapeutics tablet PO SCH (07:58)
[2023-06-23] MEDS: rifaximin 550mg tablet PO SCH ×2 (07:58→19:25)
[2023-06-23] MEDS: ESCITALOPRAM OXALATE 5 MG TABLET PO SCH (07:58)
[2023-06-23] MEDS: sucralfate 1 gm tablet PO SCH ×3 (07:59→17:21)
[2023-06-23] MEDS: thiamine 100mg/ml 2ml inj. IV SCH (08:00)
[2023-06-23] MEDS ORDERED: carvedilol 6.25mg tablet PO SCH (08:00)
[2023-06-23] MEDS: spironolactone 50 MG tablet PO SCH (08:00)
[2023-06-23] MEDS: K and/or MAG REPLACEMENT MC SCH ×2 (08:00→19:50)
[2023-06-23] MEDS: folic acid 1mg/0.2ml inj IV SCH (08:34)
[2023-06-23 09:03] LABS: BILIRUBIN,DIRECT 3.8 MG/DL (0-0.3)
[2023-06-23] MEDS ORDERED: magnesium 4gm in 100ml NS 100 ML IV PRN (10:15)
[2023-06-23] MEDS ORDERED: magnesium 2GM in 50ml NS 50 ML IV PRN (10:15)
[2023-06-23] MEDS: magnesium Cl slow-release 64mg tablet PO PRN ×2 (10:50→20:05)
[2023-06-23 13:28] LABS: BASOPHILS % (AUTO) 1.2 % (0-1); EOSINOPHILS # (AUTO) 0.1 X10'3 (0-0.9); EOSINOPHILS % (AUTO) 2.9 % (0-6); HEMATOCRIT 30.2 % (35.0-45.0); HEMOGLOBIN 10.1 g/dl (12.0-16.0); LYMPHOCYTES # (AUTO) 0.7 X10'3 (1.1-4.8); LYMPHOCYTES % (AUTO) 29.8 % (21-51); MEAN CORPUSCULAR HEMOGLOBIN 34.4 PG (27.0-31.0); MEAN CORPUSCULAR HGB CONC 33.3 g/dL (33.0-36.5); MEAN CORPUSCULAR VOLUME 103.1 FL (78-98); MEAN PLATELET VOLUME 7.3 FL (7.4-10.4); MONOCYTES # (AUTO) 0.2 X10'3 (0-0.9); MONOCYTES % (AUTO) 9.8 % (2-12); NEUTROPHILS # (AUTO) 1.3 X10'3 (1.8-7.7); NEUTROPHILS % (AUTO) 56.3 % (42-75); PLATELET COUNT 71 X10'3 (140-440); RED BLOOD COUNT 2.93 X10'6 (4.20-5.60); RED CELL DISTRIBUTION WIDTH 23.2 % (11.5-14.5); WHITE BLOOD COUNT 2.3 X10'3 (4.5-11.0)
--- NOTE | 2023-06-23 18:12 | NUR ---
Problems reprioritized. Patient report given, questions answered & plan of care reviewed with Ngozi CLOUD. . Addendum: 06/23/23 at 1813 by Sheryl Nieto RN Amended: Links added.
[2023-06-23] MEDS: carVEDilol 3.125mg tablet PO SCH (19:25)
[2023-06-23] MEDS: pantoprazole 40mg Tablet.DR PO SCH (19:25)
[2023-06-23] MEDS: diazepam inj 5 MG/ML inj. IV PRN (20:05)
[2023-06-23] MEDS: OLANZAPINE 5 MG TABLET PO SCH (21:24)
[2023-06-23 21:59] LABS: HEMATOCRIT 25.3 % (35.0-45.0); HEMOGLOBIN 8.5 g/dl (12.0-16.0); MEAN CORPUSCULAR HEMOGLOBIN 34.3 PG (27.0-31.0); MEAN CORPUSCULAR VOLUME 102.5 FL (78-98); RED BLOOD COUNT 2.47 X10'6 (4.20-5.60)
[2023-06-23 22:01] LABS: MEAN CORPUSCULAR HGB CONC 33.5 g/dL (33.0-36.5); MEAN PLATELET VOLUME 7.7 FL (7.4-10.4); PLATELET COUNT 63 X10'3 (140-440); RED CELL DISTRIBUTION WIDTH 22.8 % (11.5-14.5)
[2023-06-23 22:25] LABS: NUCLEATED RED BLOOD CELLS 1 /100WBC (0-0); TOTAL CELLS COUNTED 100
[2023-06-23 22:28] LABS: ANISOCYTOSIS 3+; PLATELET ESTIMATE DECREASED
[2023-06-23 22:30] LABS: TEAR DROP CELLS FEW
[2023-06-23 22:32] LABS: POIKILOCYTOSIS 1+
[2023-06-23 22:37] LABS: SPHEROCYTES FEW
[2023-06-24] MEDS: lactulose 20gm/30ml cup PO SCH ×2 (01:58→07:49)
[2023-06-24] MEDS: diazepam inj 5 MG/ML inj. IV PRN ×2 (01:58→12:46)
[2023-06-24 02:00] VITALS: BP 100/58; PULSE 71; RESP 20; TEMP 98; O2SAT 90
[2023-06-24 06:00] VITALS: BP 104/48; PULSE 66; RESP 16; TEMP 97.4; O2SAT 94
--- NOTE | 2023-06-24 06:33 | NUR ---
Patient in room U 3019. I have received report from Ngozi CLOUD and had the opportunity to ask questions and assume patient care. Pt sleeping, No distress, call light in reach. Addendum: 06/24/23 at 0634 by Sheryl Nieto RN Amended: Links added.
[2023-06-24 06:41] LABS: ALANINE AMINOTRANSFERASE 22 U/L (12-78); ALBUMIN 2.1 G/DL (3.4-5.0); ALKALINE PHOSPHATASE 83 IU/L (46-116); ANION GAP 6 (8-16); ASPARTATE AMINO TRANSFERASE 60 U/L (10-37); BILIRUBIN,TOTAL 6.5 MG/DL (0.1-1.0); BLOOD UREA NITROGEN 9 MG/DL (7-18); BUN/CREATININE RATIO 7.2 (10.0-20.0); CALCIUM 8.5 MG/DL (8.5-10.1); CHLORIDE 109 MMOL/L (99-107); CREATININE 1.25 MG/DL (0.40-0.90); GLUCOSE 113 MG/DL (70-104); MAGNESIUM 1.5 MG/DL (1.5-2.4); POTASSIUM 3.2 MMOL/L (3.5-5.1); SODIUM 140 MMOL/L (135-145); TOTAL CARBON DIOXIDE 24.7 MMOL/L (24-32); eCRCL 41 ML/MIN; eGFR 44 ML/MIN
[2023-06-24 06:42] LABS: ALBUMIN/GLOBULIN RATIO 0.6 (1.1-1.5); PHOSPHORUS 2.8 MG/DL (2.3-4.5); TOTAL PROTEIN 5.7 G/DL (6.4-8.2)
--- NOTE | 2023-06-24 06:43 | NUR ---
Patient report given, questions answered & plan of care reviewed with AI Tirado
[2023-06-24 06:47] LABS: BASOPHILS % (AUTO) 0.8 % (0-1); EOSINOPHILS # (AUTO) 0.1 X10'3 (0-0.9); EOSINOPHILS % (AUTO) 3.5 % (0-6); HEMATOCRIT 26.1 % (35.0-45.0); HEMOGLOBIN 8.5 g/dl (12.0-16.0); LYMPHOCYTES # (AUTO) 0.8 X10'3 (1.1-4.8); LYMPHOCYTES % (AUTO) 36.8 % (21-51); MEAN CORPUSCULAR HEMOGLOBIN 33.7 PG (27.0-31.0); MEAN CORPUSCULAR HGB CONC 32.7 g/dL (33.0-36.5); MEAN PLATELET VOLUME 7.7 FL (7.4-10.4); MONOCYTES # (AUTO) 0.3 X10'3 (0-0.9); MONOCYTES % (AUTO) 11.1 % (2-12); NEUTROPHILS # (AUTO) 1.1 X10'3 (1.8-7.7); NEUTROPHILS % (AUTO) 47.8 % (42-75); PLATELET COUNT 60 X10'3 (140-440); RED BLOOD COUNT 2.53 X10'6 (4.20-5.60); WHITE BLOOD COUNT 2.3 X10'3 (4.5-11.0)
[2023-06-24 07:10] LABS: TOTAL CELLS COUNTED 100
[2023-06-24 07:12] LABS: ANISOCYTOSIS 3+; PLATELET ESTIMATE DECREASED; POLYCHROMASIA 1+; TEAR DROP CELLS 1+
[2023-06-24] MEDS: sucralfate 1 gm tablet PO SCH (07:49)
[2023-06-24] MEDS: CefTRIAXone/D5W-Rocephin 1gm 50 ML IV SCH (07:50)
[2023-06-24 07:55] VITALS: RESP 16; O2SAT 94
[2023-06-24] MEDS: K and/or MAG REPLACEMENT MC SCH (08:00)
[2023-06-24] MEDS ORDERED: thiamine 100mg tablet PO SCH (08:00)
[2023-06-24] MEDS: multivitamins, therapeutics tablet PO SCH (08:00)
[2023-06-24] MEDS: HYDROmorphone inj. 0.5 MG/0.5 ML DISP.SYRIN IV PRN (08:37)
[2023-06-24] MEDS ORDERED: LORazepam 2 mg/ml vial IV PRN (08:45)
[2023-06-24] MEDS ORDERED: LORazepam 1 MG tablet PO PRN (08:45)
[2023-06-24] MEDS: pantoprazole 40mg Tablet.DR PO SCH (09:45)
[2023-06-24] MEDS: carVEDilol 3.125mg tablet PO SCH (09:45)
[2023-06-24] MEDS: ESCITALOPRAM OXALATE 5 MG TABLET PO SCH (09:46)
[2023-06-24] MEDS: rifaximin 550mg tablet PO SCH (09:49)
[2023-06-24] MEDS: furosemide 40mg tablet PO SCH (09:49)
[2023-06-24] MEDS: spironolactone 50 MG tablet PO SCH (09:50)
[2023-06-24] MEDS ORDERED: LACT10SO7 PO (10:44)
[2023-06-24] MEDS ORDERED: RIFA550T PO (10:44)
[2023-06-24] MEDS ORDERED: MULT-25 PO (10:44)
[2023-06-24] MEDS ORDERED: COR3.125T PO (10:44)
[2023-06-24 11:20] VITALS: BP 118/62; PULSE 71; RESP 16; TEMP 97.8; O2SAT 91
--- NOTE | 2023-06-24 13:30 | NUR ---
All written and verbal orders for D/C given. All questions answered. extensive information given on quit drinking given. Pt left hospital via w/c, home with . Pt stated she had all belongings. Addendum: 06/24/23 at 1351 by Sheryl Nieto RN Amended: Links added.
[2023-06-25] MEDS ORDERED: folic acid 1mg tablet PO SCH (08:00)
== END 2023-06-24 13:30 | disposition home or self-care (01) | DRG 871 ==
LOC: ER 03:25 → ED HOLD 08:44 → PCU 3S 12:00
PROVIDERS: ADMIT Family Medicine; ATTEND Family Medicine
PROC: BW211ZZ Computerized Tomography (CT Scan) of Abdomen and Pelvis using Low Osmolar Contrast (ICD-10-PCS; principal; 2023-06-20)
PROC: 30233N1 Transfusion of Nonautologous Red Blood Cells into Peripheral Vein, Percutaneous Approach (ICD-10-PCS; 2023-06-20)
PROC: 0DJ08ZZ Inspection of Upper Intestinal Tract, Via Natural or Artificial Opening Endoscopic (ICD-10-PCS; 2023-06-20)
DX: A41.9 Sepsis, unspecified organism (principal); I85.11 Secondary esophageal varices with bleeding; K29.21 Alcoholic gastritis with bleeding; K76.6 Portal hypertension; D61.818 Other pancytopenia; I13.0 Hypertensive heart and chronic kidney disease with heart failure and stage 1 through stage 4 chronic kidney disease, or unspecified chronic kidney disease; N39.0 Urinary tract infection, site not specified; R65.20 Severe sepsis without septic shock; K31.89 Other diseases of stomach and duodenum; I50.9 Heart failure, unspecified; F10.10 Alcohol abuse, uncomplicated; R16.2 Hepatomegaly with splenomegaly, not elsewhere classified; N18.30 Chronic kidney disease, stage 3 unspecified; K70.31 Alcoholic cirrhosis of liver with ascites; Z88.8 Allergy status to other drugs, medicaments and biological substances; Z88.2 Allergy status to sulfonamides
CPT/HCPCS: 36415; 36430; 43235; 71045; 74177; 80053; 80305; 80320; 81003; 82140; 82150; 82248; 82272; 82948; 83605; 83615; 83690; 83735; 84100; 84145; 84484; 85007; 85025; 85027; 85045; 85610; 85730; 86885; 86900; 86901; 86920; 87040; 87081; 87088; 93005; 97116; 97161; 97530; 99152; 99285; A4615; A4620; A6258; C1751; C9113; G0378; J0171; J0696; J1170; J2060; J2250; J2270; J2354; J2405; J2543; J2765; J3010; J3360; J3411; J3490; J7030; J7040; J7120; P9016; Q0177; Q9967

== ENCOUNTER 2023-08-30 14:04 | Inpatient (IN) | payer MEDICARE ==
[~2023-08-30] VITALS: Ht 160 cm; Wt 63.2 kg
[~2023-08-30 14:04] MED LIST changes: +COR3.125T PO; -METO-395 PO; +MULT-25 PO; -PANT-47 PO; +PANT20TA18 PO; +RIFA550T PO; +SUCR1TAB PO
[2023-08-30] MEDS ORDERED: diazepam inj 5 MG/ML inj. IV ONE ×3 (14:35→19:10)
[2023-08-30 16:03] LABS: BILIRUBIN,URINE NEGATIVE (Neg); CLARITY,URINE CLEAR (Clear); COLOR,URINE YELLOW (Yellow); GLUCOSE, URINE NEGATIVE (Neg); KETONES,URINE NEGATIVE (Neg); LEUKOCYTE ESTERASE ,URINE NEGATIVE (Neg); NITRITES, URINE NEGATIVE (Neg); OCCULT BLOOD,URINE NEGATIVE (Neg); PROTEIN,URINE NEGATIVE (Neg); UROBILINOGEN,URINE 0.2 E.U/dL (0.2-1.0)
[2023-08-30 16:07] LABS: UA COLLECTION TYPE CLN CATCH MIDSTREAM
[2023-08-30 16:11] LABS: URINE AMPHETAMINE SCREEN NEGATIVE (Neg); URINE BARBITUATE SCREEN NEGATIVE (Neg); URINE BENZODIAZEPINES SCREEN NEGATIVE (Neg); URINE CANNABINOID SCREEN POSITIVE (Neg); URINE COCAINE SCREEN NEGATIVE (Neg); URINE METHADONE SCREEN NEGATIVE (Neg); URINE OPIATE SCREEN NEGATIVE (Neg); URINE PHENCYCLIDINE SCREEN NEGATIVE (Neg)
[2023-08-30 16:28] LABS: BASOPHILS % (AUTO) 1.5 % (0-1); EOSINOPHILS % (AUTO) 1.9 % (0-6); HEMATOCRIT 28.9 % (35.0-45.0); HEMOGLOBIN 9.9 g/dl (12.0-16.0); LYMPHOCYTES # (AUTO) 0.8 X10'3 (1.1-4.8); MEAN CORPUSCULAR HEMOGLOBIN 30.8 PG (27.0-31.0); MEAN CORPUSCULAR HGB CONC 34.2 g/dL (33.0-36.5); MEAN CORPUSCULAR VOLUME 89.9 FL (78-98); MEAN PLATELET VOLUME 7.6 FL (7.4-10.4); MONOCYTES # (AUTO) 0.2 X10'3 (0-0.9); MONOCYTES % (AUTO) 6.9 % (2-12); NEUTROPHILS # (AUTO) 1.2 X10'3 (1.8-7.7); NEUTROPHILS % (AUTO) 54.7 % (42-75); PLATELET COUNT 89 X10'3 (140-440); RED BLOOD COUNT 3.22 X10'6 (4.20-5.60); RED CELL DISTRIBUTION WIDTH 17.5 % (11.5-14.5); WHITE BLOOD COUNT 2.2 X10'3 (4.5-11.0)
[2023-08-30 16:41] LABS: ALANINE AMINOTRANSFERASE 33 U/L (12-78); ALBUMIN/GLOBULIN RATIO 0.6 (1.1-1.5); ALKALINE PHOSPHATASE 133 IU/L (46-116); ANION GAP 14 (8-16); ASPARTATE AMINO TRANSFERASE 80 U/L (10-37); BILIRUBIN,TOTAL 9.7 MG/DL (0.1-1.0); BLOOD UREA NITROGEN 9 MG/DL (7-18); CALCIUM 8.6 MG/DL (8.5-10.1); CHLORIDE 102 MMOL/L (99-107); CREATININE 1.13 MG/DL (0.40-0.90); ETHANOL < 10 MG/DL (<10); GLUCOSE 133 MG/DL (70-104); SODIUM 141 MMOL/L (135-145); TOTAL CARBON DIOXIDE 25.5 MMOL/L (24-32); TOTAL PROTEIN 8.1 G/DL (6.4-8.2); eCRCL 45 ML/MIN; eGFR 49 ML/MIN
[2023-08-30 16:47] LABS: ANISOCYTOSIS 1+; ELLIPTOCYTES FEW; PLATELET ESTIMATE DECREASED; POLYCHROMASIA FEW; TEAR DROP CELLS FEW
[2023-08-30 16:50] LABS: POTASSIUM 2.7 MMOL/L (3.5-5.1)
[2023-08-30 17:02] LABS: INR 1.7 INR; PROTHROMBIN TIME 17.7 SECONDS (9.0-12.0)
[2023-08-30] MEDS ORDERED: POTASSIUM BICARB 20meq eff tab 20 MEQ TABLET.EFF PO STA (17:02)
[2023-08-30] MEDS ORDERED: magnesium 2GM in 50ml NS 50 ML IV PRN (20:45)
[2023-08-30] MEDS ORDERED: potassium Cl 40MEQ/1/2NS 520ml 520 ML IV PRN (20:45)
[2023-08-30] MEDS ORDERED: magnesium Cl slow-release 64mg tablet PO PRN (20:45)
[2023-08-30] MEDS ORDERED: magnesium 4gm in 100ml NS 100 ML IV PRN (20:45)
[2023-08-30] MEDS ORDERED: ondansetron/PF 4mg/2ml inj IV PRN (20:45)
[2023-08-30] MEDS ORDERED: magnesium hydroxide 30ml (MOM) UD suspension PO PRN (20:45)
[2023-08-30] MEDS ORDERED: potassium Cl 20 mEq SR tablet PO PRN ×2 (20:45)
[2023-08-30] MEDS ORDERED: mag hydrox/Alum hydrox/simeth 30ml oral suspension PO PRN (20:45)
[2023-08-30] MEDS ORDERED: diphenhydrAMINE 25mg capsule PO ONE (20:45)
[2023-08-30] MEDS ORDERED: MAGN400T50 PO (22:28)
[2023-08-30] MEDS ORDERED: ONDA4TAB12 (22:28)
[2023-08-30] MEDS ORDERED: ACYC-129 PO (22:28)
[2023-08-30] MEDS ORDERED: CAT1P PO (22:28)
[2023-08-30] MEDS ORDERED: SPIR100T PO (22:28)
[2023-08-30] MEDS ORDERED: METH-797 PO (22:28)
[2023-08-30] MEDS ORDERED: POTA20TA34 PO (22:30)
[2023-08-30] MEDS ORDERED: LACT10SO3 PO (22:31)
[2023-08-30] MEDS ORDERED: TRAM50TA2 PO (22:35)
[2023-08-30] MEDS ORDERED: zolpidem 5mg tablet PO ONE (22:35)
[2023-08-30] MEDS ORDERED: TRAZ-251 PO (22:38)
[2023-08-30] MEDS ORDERED: RIFA550T PO (22:40)
[2023-08-30] MEDS ORDERED: OLAN5TAB3 PO (22:40)
[2023-08-30] MEDS ORDERED: CARV3.122 PO (23:13)
[2023-08-30] MEDS: OLANZapine 2.5MG tablet PO SCH (23:25)
[2023-08-31] MEDS ORDERED: traZODone 50mg tablet PO PRN
[2023-08-31] MEDS ORDERED: hydrOXYzine 25 MG tablet PO PRN
[2023-08-31] MEDS: OLANZapine 2.5MG tablet PO SCH (00:17)
[2023-08-31] MEDS ORDERED: zolpidem 5mg tablet PO STA ×2 (02:08→02:12)
[2023-08-31 07:15] VITALS: RESP 16
[2023-08-31 07:26] VITALS: BP 131/64; PULSE 91; RESP 16; TEMP 98.4; O2SAT 93
[2023-08-31] MEDS ORDERED: pantoprazole 40mg Tablet.DR PO SCH (07:30)
[2023-08-31] MEDS ORDERED: rifaximin 550mg tablet PO SCH (08:00)
[2023-08-31] MEDS ORDERED: ESCITALOPRAM 10 mg tablet 10 MG TABLET PO SCH (08:00)
[2023-08-31] MEDS ORDERED: K and/or MAG REPLACEMENT MC SCH (08:00)
[2023-08-31] MEDS ORDERED: carVEDilol 3.125mg tablet PO SCH (08:00)
[2023-08-31] MEDS ORDERED: folic acid 0.4mg tablet PO SCH (08:00)
[2023-08-31] MEDS ORDERED: sucralfate 1 gm tablet PO SCH (08:00)
[2023-08-31] MEDS ORDERED: thiamine 100mg tablet PO SCH (08:00)
[2023-08-31] MEDS ORDERED: magnesium oxide 400mg tablet PO SCH (08:00)
[2023-08-31] MEDS ORDERED: spironolactone 50 MG tablet PO SCH (08:00)
[2023-08-31] MEDS ORDERED: furosemide 40mg tablet PO SCH (08:00)
[2023-08-31] MEDS ORDERED: docusate sod 100mg capsule PO SCH (08:00)
[2023-08-31] MEDS: lactulose 20gm/30ml cup PO SCH ×2 (08:59→12:21)
[2023-08-31 10:00] VITALS: BP 110/56; PULSE 76; RESP 20; TEMP 97.4; O2SAT 91
[2023-08-31 10:07] LABS: BASOPHILS % (AUTO) 1.1 % (0-1); EOSINOPHILS # (AUTO) 0.1 X10'3 (0-0.9); EOSINOPHILS % (AUTO) 2.2 % (0-6); HEMATOCRIT 27.2 % (35.0-45.0); HEMOGLOBIN 9.3 g/dl (12.0-16.0); LYMPHOCYTES # (AUTO) 1.1 X10'3 (1.1-4.8); LYMPHOCYTES % (AUTO) 37.3 % (21-51); MEAN CORPUSCULAR HEMOGLOBIN 30.5 PG (27.0-31.0); MEAN CORPUSCULAR VOLUME 89.5 FL (78-98); MEAN PLATELET VOLUME 7.1 FL (7.4-10.4); MONOCYTES # (AUTO) 0.2 X10'3 (0-0.9); MONOCYTES % (AUTO) 5.5 % (2-12); NEUTROPHILS # (AUTO) 1.6 X10'3 (1.8-7.7); NEUTROPHILS % (AUTO) 53.9 % (42-75); PLATELET COUNT 88 X10'3 (140-440); RED BLOOD COUNT 3.04 X10'6 (4.20-5.60); RED CELL DISTRIBUTION WIDTH 17.1 % (11.5-14.5); WHITE BLOOD COUNT 2.9 X10'3 (4.5-11.0)
[2023-08-31 10:32] LABS: ANISOCYTOSIS 1+; PLATELET ESTIMATE DECREASED; TOTAL CELLS COUNTED 100
[2023-08-31 10:34] LABS: ELLIPTOCYTES FEW; POIKILOCYTOSIS FEW; POLYCHROMASIA FEW; TEAR DROP CELLS FEW
[2023-08-31 10:40] LABS: ALANINE AMINOTRANSFERASE 29 U/L (12-78); ALBUMIN 2.7 G/DL (3.4-5.0); ALKALINE PHOSPHATASE 118 IU/L (46-116); ANION GAP 6 (8-16); ASPARTATE AMINO TRANSFERASE 58 U/L (10-37); BILIRUBIN,TOTAL 8.1 MG/DL (0.1-1.0); BLOOD UREA NITROGEN 9 MG/DL (7-18); BUN/CREATININE RATIO 8.3 (10.0-20.0); CALCIUM 8.5 MG/DL (8.5-10.1); CHLORIDE 103 MMOL/L (99-107); CREATININE 1.08 MG/DL (0.40-0.90); GLUCOSE 101 MG/DL (70-104); MAGNESIUM 1.5 MG/DL (1.5-2.4); POTASSIUM 3.1 MMOL/L (3.5-5.1); SODIUM 137 MMOL/L (135-145); TOTAL CARBON DIOXIDE 27.8 MMOL/L (24-32); eCRCL 47 ML/MIN; eGFR 52 ML/MIN
[2023-08-31 10:44] LABS: ALBUMIN/GLOBULIN RATIO 0.5 (1.1-1.5); TOTAL PROTEIN 7.7 G/DL (6.4-8.2)
[2023-08-31 11:27] LABS: TOTAL CELLS COUNTED 100
[2023-08-31] MEDS ORDERED: POTA-207 PO (12:10)
[2023-08-31] MEDS ORDERED: TEMA30CA5 PO (13:45)
[2023-08-31] MEDS ORDERED: OLANZAPINE 5 MG TABLET PO SCH (21:00)
== END 2023-08-31 18:00 | disposition home or self-care (01) | DRG 442 ==
LOC: ER 14:04 → ED HOLD 20:45 → ORTHO 4S 08-31 07:05
PROVIDERS: ADMIT Internal Medicine; ATTEND Family Medicine
DX: K76.82 Hepatic encephalopathy (principal); D61.818 Other pancytopenia; D73.1 Hypersplenism; K72.90 Hepatic failure, unspecified without coma; F31.9 Bipolar disorder, unspecified; G47.00 Insomnia, unspecified; I50.9 Heart failure, unspecified; K74.60 Unspecified cirrhosis of liver; Z66 Do not resuscitate; Z80.0 Family history of malignant neoplasm of digestive organs; Z82.49 Family history of ischemic heart disease and other diseases of the circulatory system; Z79.899 Other long term (current) drug therapy; Z98.82 Breast implant status; Z88.2 Allergy status to sulfonamides; Z88.8 Allergy status to other drugs, medicaments and biological substances
CPT/HCPCS: 36415; 70450; 71045; 80053; 80305; 80320; 81003; 82140; 83605; 83735; 84132; 84145; 85007; 85008; 85025; 85610; 87040; 87081; 99285; A4615; G0378; J3360; Q0163; Q0177

== ENCOUNTER 2024-06-15 11:32 | Emergency (ER) | payer MEDICARE ==
[~2024-06-15] VITALS: Ht 157.5 cm; Wt 61.8 kg
[~2024-06-15 11:32] MED LIST changes: +ACYC-129 PO; +CARV3.122 PO; +CAT1P PO; -COR3.125T PO; -ESCI20TA16 PO; +ESCI20TA52 PO; +LACT10SO3 PO; -LACT10SO7 PO; +MAGN400T50 PO; +METH-797 PO; -MULT-25 PO; +OLAN5TAB3 PO; -OLAN5TAB75 PO; -ONDA-103 PO; +ONDA-243; +SPIR100T PO; -SPIR100T5 PO; +TRAZ-251 PO
[2024-06-15 12:07] VITALS: TEMP 98.2
[2024-06-15 15:05] LABS: BASOPHILS % (AUTO) 1.7 % (0-1); EOSINOPHILS # (AUTO) 0.1 X10'3 (0-0.9); HEMATOCRIT 26.8 % (35.0-45.0); HEMOGLOBIN 8.3 g/dl (12.0-16.0); LYMPHOCYTES # (AUTO) 0.9 X10'3 (1.1-4.8); LYMPHOCYTES % (AUTO) 48.5 % (21-51); MEAN CORPUSCULAR HEMOGLOBIN 23.6 PG (27.0-31.0); MEAN CORPUSCULAR HGB CONC 31.2 g/dL (33.0-36.5); MEAN CORPUSCULAR VOLUME 75.8 FL (78-98); MEAN PLATELET VOLUME 8.1 FL (7.4-10.4); MONOCYTES # (AUTO) 0.1 X10'3 (0-0.9); MONOCYTES % (AUTO) 5.2 % (2-12); NEUTROPHILS # (AUTO) 0.8 X10'3 (1.8-7.7); NEUTROPHILS % (AUTO) 40.6 % (42-75); PLATELET COUNT 78 X10'3 (140-440); RED BLOOD COUNT 3.53 X10'6 (4.20-5.60); RED CELL DISTRIBUTION WIDTH 19.2 % (11.5-14.5); WHITE BLOOD COUNT 1.9 X10'3 (4.5-11.0)
[2024-06-15 15:14] LABS: ALANINE AMINOTRANSFERASE 24 U/L (12-78); ALBUMIN/GLOBULIN RATIO 0.7 (1.1-1.5); ALKALINE PHOSPHATASE 132 IU/L (46-116); ANION GAP 8 (8-16); ASPARTATE AMINO TRANSFERASE 39 U/L (10-37); BILIRUBIN,TOTAL 3.3 MG/DL (0.1-1.0); BLOOD UREA NITROGEN 9 MG/DL (7-18); BUN/CREATININE RATIO 10.5 (10.0-20.0); CALCIUM 8.9 MG/DL (8.5-10.1); CHLORIDE 110 MMOL/L (99-107); CREATININE 0.86 MG/DL (0.40-0.90); GLUCOSE 87 MG/DL (70-104); POTASSIUM 4.2 MMOL/L (3.5-5.1); SODIUM 142 MMOL/L (135-145); TOTAL CARBON DIOXIDE 24.2 MMOL/L (24-32); TOTAL PROTEIN 7.1 G/DL (6.4-8.2); eCRCL 56 ML/MIN; eGFR 68 ML/MIN
[2024-06-15 15:21] LABS: PRO BRAIN NATRIURETIC PEPTIDE 242 PG/ML (0-125)
[2024-06-15 15:23] LABS: ANISOCYTOSIS 2+; ELLIPTOCYTES FEW; MICROCYTOSIS 1+; PLATELET ESTIMATE DECREASED; TEAR DROP CELLS FEW; TOTAL CELLS COUNTED 100
[2024-06-15 16:16] LABS: MAGNESIUM 1.5 MG/DL (1.5-2.4); PHOSPHORUS 3.5 MG/DL (2.3-4.5)
[2024-06-15] MEDS ORDERED: LORA-268 PO ×2 (16:17→16:40)
[2024-06-15 16:46] VITALS: BP 132/86; PULSE 78; RESP 16; O2SAT 98
== END 2024-06-15 16:46 | disposition home or self-care (01) ==
LOC: ER 11:35
DX: F99 Mental disorder, not otherwise specified (principal); D64.9 Anemia, unspecified; K74.60 Unspecified cirrhosis of liver; R53.1 Weakness; I50.9 Heart failure, unspecified; F12.90 Cannabis use, unspecified, uncomplicated; Z88.2 Allergy status to sulfonamides; Z88.8 Allergy status to other drugs, medicaments and biological substances; Z79.899 Other long term (current) drug therapy
CPT/HCPCS: 36415; 71045; 80053; 83735; 83880; 84100; 84484; 85007; 85025; 93005; 99285

== ENCOUNTER 2024-08-14 06:00 | Inpatient (IN) | payer MEDICARE ==
[~2024-08-14] VITALS: Ht 162.6 cm; Wt 59.6 kg
[~2024-08-14 06:00] MED LIST changes: +LACT-373 PO; -LACT10SO3 PO; +LORA-268 PO
[2024-08-15] MEDS ORDERED: magnesium hydroxide 30ml (MOM) UD suspension PO PRN (07:00)
[2024-08-15] MEDS ORDERED: mag hydrox/Alum hydrox/simeth 30ml oral suspension PO PRN (07:00)
[2024-08-15] MEDS ORDERED: acetaminophen 325mg tablet PO PRN ×2 (07:00)
[2024-08-15] MEDS ORDERED: NICOTINE POLACRILEX 2 MG LOZENGE BC PRN (07:00)
[2024-08-15] MEDS ORDERED: loperamide 2mg capsule PO PRN (07:00)
[2024-08-15 07:30] VITALS: BP 142/69; PULSE 93; RESP 18; TEMP 97.4; O2SAT 93; O2SAT 96
[2024-08-15] MEDS ORDERED: nicotine 21mg patch - 24 hr TD SCH (08:00)
[2024-08-15] MEDS ORDERED: LORA-268 PO (08:26)
[2024-08-15] MEDS ORDERED: MAGN400C PO (08:26)
[2024-08-15] MEDS ORDERED: BACL10TA2 PO (08:26)
[2024-08-15] MEDS ORDERED: HYDR100C2 PO (08:26)
[2024-08-15] MEDS ORDERED: PANT20TA18 PO (08:26)
[2024-08-15] MEDS ORDERED: TEMA30CA5 PO (08:26)
[2024-08-15] MEDS ORDERED: POTA-192 PO (08:26)
[2024-08-15] MEDS ORDERED: TRAM50TA2 PO (08:26)
[2024-08-15] MEDS ORDERED: THIA50TA10 PO (08:26)
[2024-08-15] MEDS ORDERED: CARB15DR2 OP (08:51)
[2024-08-15] MEDS: hydrOXYzine 25 MG tablet PO PRN ×2 (10:40→17:25)
[2024-08-15] MEDS: baclofen 10mg tablet PO PRN (10:40)
[2024-08-15] MEDS: pantoprazole 40mg Tablet.DR PO ONE (10:40)
[2024-08-15] MEDS: thiamine 100mg tablet PO ONE (10:41)
[2024-08-15] MEDS: traMADol 50MG tablet PO PRN (10:41)
[2024-08-15] MEDS: folic acid 1mg tablet PO ONE (10:41)
[2024-08-15] MEDS: magnesium oxide 400mg tablet PO ONE (10:41)
[2024-08-15] MEDS: potassium chloride 10mEq ER tablet PO ONE (10:45)
[2024-08-15 11:19] VITALS: RESP 18; O2SAT 93
[2024-08-15] MEDS ORDERED: PEG 400/HYPROMELLOSE/GLYCERIN 15ml bottle EACHEYE SCH (14:00)
[2024-08-15 19:00] VITALS: RESP 15; O2SAT 97
[2024-08-15 20:00] VITALS: BP 122/61; PULSE 98; RESP 18; TEMP 98.6; O2SAT 96
[2024-08-15] MEDS ORDERED: temazepam 15mg capsule PO PRN (21:00)
[2024-08-15] MEDS: polyvinyl alcohol eye drops 15ML BOTTLE EACHEYE SCH (21:52)
[2024-08-15] MEDS: traZODone 150mg tablet PO PRN (21:57)
[2024-08-15] MEDS: LORazepam 0.5 MG tablet PO PRN (22:00)
[2024-08-16] MEDS: traZODone 150mg tablet PO ONE (00:21)
[2024-08-16 07:00] VITALS: RESP 16; O2SAT 92
[2024-08-16 08:00] VITALS: BP 125/63; PULSE 97; RESP 16; TEMP 98.9; O2SAT 92
[2024-08-16] MEDS: folic acid 1mg tablet PO SCH (08:00)
[2024-08-16] MEDS: potassium chloride 10mEq ER tablet PO SCH (08:00)
[2024-08-16] MEDS ORDERED: folic acid 0.4mg tablet PO SCH (08:00)
[2024-08-16] MEDS: magnesium oxide 400mg tablet PO SCH (08:00)
[2024-08-16] MEDS: thiamine 100mg tablet PO SCH (08:00)
[2024-08-16] MEDS: pantoprazole 40mg Tablet.DR PO SCH (08:01)
[2024-08-16 11:33] VITALS: RESP 15
== END 2024-08-16 12:20 | disposition home or self-care (01) | DRG 882 ==
LOC: ADULT MH 06:00
PROVIDERS: ADMIT Psychiatry & Neurology Psychiatry; ATTEND Psychiatry & Neurology Psychiatry
PROC: GZHZZZZ Group Psychotherapy (ICD-10-PCS; principal; 2024-08-16)
PROC: GZ51ZZZ Individual Psychotherapy, Behavioral (ICD-10-PCS; 2024-08-16)
DX: F43.23 Adjustment disorder with mixed anxiety and depressed mood (principal); F10.24 Alcohol dependence with alcohol-induced mood disorder; R45.851 Suicidal ideations; F10.282 Alcohol dependence with alcohol-induced sleep disorder; G47.00 Insomnia, unspecified; Z88.2 Allergy status to sulfonamides; Z82.49 Family history of ischemic heart disease and other diseases of the circulatory system; Z80.0 Family history of malignant neoplasm of digestive organs; Z86.19 Personal history of other infectious and parasitic diseases
CPT/HCPCS: 87081; Q0177

== ENCOUNTER 2025-01-16 19:30 | Emergency (ER) | payer MEDICARE ==
[~2025-01-16] VITALS: Ht 160 cm; Wt 59.5 kg
[~2025-01-16 19:30] MED LIST changes: -ACYC-129 PO; +BACL10TA2 PO; -CARV3.122 PO; -CAT1P PO; -ESCI20TA52 PO; -FOLI0.4T6 PO; -FURO-149 PO; -HYDR50CA5 PO; -LACT-373 PO; -LORA-268 PO; -MAGN400T50 PO; -MAGN400T56 PO; -METH-797 PO; -OLAN5TAB3 PO; -ONDA-243; -PANT20TA18 PO; -RIFA550T PO; -SPIR100T PO; -SUCR1TAB PO; -THIA100T66 PO; -TRAM50TA2 PO; -TRAZ-251 PO
[2025-01-16] MEDS ORDERED: ONDA-243 SL (20:14)
[2025-01-16] MEDS ORDERED: HYDR50CA5 PO (20:14)
[2025-01-16] MEDS ORDERED: FURO40TA4 PO (20:14)
[2025-01-16] MEDS ORDERED: METH-797 PO (20:14)
[2025-01-16] MEDS ORDERED: CARV3.123 PO (20:14)
[2025-01-16 20:34] LABS: BASOPHILS % (AUTO) 0.3 % (0-1); EOSINOPHILS # (AUTO) 0.3 X10'3 (0-0.9); EOSINOPHILS % (AUTO) 14.4 % (0-6); HEMATOCRIT 27.4 % (35.0-45.0); LYMPHOCYTES # (AUTO) 0.6 X10'3 (1.1-4.8); LYMPHOCYTES % (AUTO) 32.5 % (21-51); MEAN CORPUSCULAR HGB CONC 32.8 g/dL (33.0-36.5); MEAN CORPUSCULAR VOLUME 85.5 FL (78-98); MEAN PLATELET VOLUME 6.7 FL (7.4-10.4); MONOCYTES # (AUTO) 0.2 X10'3 (0-0.9); MONOCYTES % (AUTO) 9.6 % (2-12); NEUTROPHILS # (AUTO) 0.8 X10'3 (1.8-7.7); NEUTROPHILS % (AUTO) 43.2 % (42-75); PLATELET COUNT 80 X10'3 (140-440); RED CELL DISTRIBUTION WIDTH 16.8 % (11.5-14.5); WHITE BLOOD COUNT 1.8 X10'3 (4.5-11.0)
[2025-01-16 20:58] LABS: ALBUMIN 2.6 G/DL (3.4-5.0); ANION GAP 10 (8-16); BLOOD UREA NITROGEN 11 MG/DL (7-18); BUN/CREATININE RATIO 11.5 (10.0-20.0); CALCIUM 8.4 MG/DL (8.5-10.1); CHLORIDE 108 MMOL/L (99-107); CREATININE 0.96 MG/DL (0.40-0.90); GLUCOSE 109 MG/DL (70-104); POTASSIUM 3.3 MMOL/L (3.5-5.1); SODIUM 142 MMOL/L (135-145); THYROID STIMULATING HORMONE 3.32 ulU/ml (0.34-4.50); TOTAL CARBON DIOXIDE 24.3 MMOL/L (24-32); eCRCL 52 ML/MIN; eGFR 59 ML/MIN
[2025-01-16 21:11] LABS: TOTAL CELLS COUNTED 100
[2025-01-16 21:12] LABS: ANISOCYTOSIS 1+; ELLIPTOCYTES FEW; PLATELET ESTIMATE DECREASED
[2025-01-16 21:13] LABS: SCHISTOCYTES FEW
[2025-01-16 21:16] LABS: ETHANOL < 10 MG/DL (<10)
[2025-01-16 21:35] LABS: BILIRUBIN,URINE NEGATIVE (Neg); CLARITY,URINE CLEAR (Clear); COLOR,URINE YELLOW (Yellow); GLUCOSE, URINE NEGATIVE (Neg); KETONES,URINE NEGATIVE (Neg); LEUKOCYTE ESTERASE ,URINE NEGATIVE (Neg); NITRITES, URINE NEGATIVE (Neg); OCCULT BLOOD,URINE TRACE-INTACT (Neg); PROTEIN,URINE NEGATIVE (Neg)
[2025-01-16 21:40] LABS: UA COLLECTION TYPE CLN CATCH MIDSTREAM
[2025-01-16 21:42] LABS: URINE HCG NEGATIVE (NEG)
[2025-01-16 21:46] LABS: BACTERIA,URINE FEW /HPF (Neg); RBC,URINE 0-2 /HPF (0-2); SQUAMOUS EPITHELIAL CELL,UR FEW /LPF (FEW); WBC,URINE 0-4 /HPF (0-4)
[2025-01-16 21:54] LABS: URINE AMPHETAMINE SCREEN NEGATIVE (Neg); URINE BARBITUATE SCREEN NEGATIVE (Neg); URINE BENZODIAZEPINES SCREEN NEGATIVE (Neg); URINE CANNABINOID SCREEN POSITIVE (Neg); URINE COCAINE SCREEN NEGATIVE (Neg); URINE METHADONE SCREEN NEGATIVE (Neg); URINE OPIATE SCREEN NEGATIVE (Neg); URINE PHENCYCLIDINE SCREEN NEGATIVE (Neg)
[2025-01-16] MEDS: haloperidol lactate 5mg/ml inj IM ONE (23:00)
[2025-01-16] MEDS: LORazepam 1 MG tablet PO ONE (23:00)
[2025-01-17] MEDS ORDERED: ondansetron 4mg rapidly disintigrating tab PO PRN (15:25)
[2025-01-17] MEDS ORDERED: hydrOXYzine 25 MG tablet PO PRN (15:25)
[2025-01-17] MEDS ORDERED: METHOCARBAMOL 500MG PO PRN (15:25)
[2025-01-17] MEDS: LORazepam 1 MG tablet PO ONE (16:32)
[2025-01-17] MEDS ORDERED: RIFA550T PO (22:48)
[2025-01-17] MEDS ORDERED: LACT-373 PO (22:48)
[2025-01-17] MEDS: quetiapine 100mg tablet PO ONE (23:15)
[2025-01-17] MEDS: haloperidol lactate 5mg/ml inj IM ONE (23:20)
[2025-01-18 00:05] LABS: ALANINE AMINOTRANSFERASE 23 U/L (12-78); ALBUMIN 2.2 G/DL (3.4-5.0); ALKALINE PHOSPHATASE 96 IU/L (46-116); ASPARTATE AMINO TRANSFERASE 41 U/L (10-37); BILIRUBIN,TOTAL 3.9 MG/DL (0.1-1.0)
[2025-01-18 00:07] LABS: ALBUMIN/GLOBULIN RATIO 0.6 (1.1-1.5); BILIRUBIN,DIRECT 2.2 MG/DL (0-0.3); TOTAL PROTEIN 6.2 G/DL (6.4-8.2)
[2025-01-18] MEDS: LORazepam 1 MG tablet PO PRN (07:45)
[2025-01-18] MEDS: carVEDilol 3.125mg tablet PO SCH (07:45)
[2025-01-18] MEDS: furosemide 40mg tablet PO SCH (07:45)
[2025-01-19 05:36] VITALS: TEMP 96.5
[2025-01-19 10:05] VITALS: BP 140/80; PULSE 91; RESP 16; O2SAT 95
[2025-01-19] MEDS: potassium Cl 20 mEq SR tablet PO STA (14:36)
== END 2025-01-19 14:54 | disposition home or self-care (01) ==
LOC: ER 19:31
DX: F41.9 Anxiety disorder, unspecified (principal); I50.9 Heart failure, unspecified; F12.90 Cannabis use, unspecified, uncomplicated; Z88.2 Allergy status to sulfonamides; Z79.899 Other long term (current) drug therapy; Z20.822 Contact with and (suspected) exposure to COVID-19
CPT/HCPCS: 36415; 80048; 80076; 80305; 81001; 81025; 84443; 85007; 85025; 87811; 96372; 99285; G0480; J1630; 80320; 99284

== ENCOUNTER 2025-09-23 17:42 | Emergency (ER) | payer MEDICARE ==
[~2025-09-23] VITALS: Ht 160 cm; Wt 59.1 kg
[~2025-09-23 17:42] MED LIST changes: -BACL10TA2 PO; +CARV3.123 PO; +FURO40TA4 PO; +HYDR50CA5 PO; +LACT-373 PO; +METH-797 PO; +ONDA-243 SL; +RIFA550T PO
[2025-09-23 17:51] VITALS: BP 125/78; PULSE 91; RESP 18; O2SAT 95
[2025-09-23] MEDS ORDERED: OXYC-481 PO (19:53)
--- NOTE | 2025-09-23 19:54 | Physician Documentation ---
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 She states that is she was not prescribe pain medication from the surgeon who performed with the biopsy and her primary care physician will not give her pain medication. The patient has a history of liver cirrhosis in his states she typically takes ibuprofen for pain. Medication Reconciliation Allergies: Coded Allergies: Sulfa (Sulfonamide Antibiotics) (Verified Allergy, Unknown, ASEPTIC MENENGITIS, 09/23/25) Scheduled Carvedilol (Carvedilol), 1 TAB PO DAILY, (Reported) Furosemide (Furosemide), 1 TAB PO DAILY, (Reported) Lactulose (Lactulose), 50 ML PO QID, (Reported) Rifaximin (Xifaxan), 1 TAB PO BID, (Reported) Scheduled PRN Hydroxyzine Pamoate (Hydroxyzine Pamoate), 1 CAP PO QID PRN for for anxiety/agitation, (Reported) Methocarbamol (Methocarbamol), 1 TAB PO DAILY PRN for mild to moderate pain 1-6, (Reported) ONDANSETRON ODT 4mg tablet (Ondansetron Odt), 1 TAB SL Q8H PRN for nausea/vomiting, (Reported) Past Medical History Past Medical History: Congestive Heart Failure, *GI/HEPATOBILIARY*, Cirrohsis, Liver Disease, Dialysis, Hernia, Renal Disease Past Surgical History: other Patient History: FH: colon cancer GRANDFATHER OR GRANDMOTHER FH: heart disease GRANDFATHER OR GRANDMOTHER Alcohol Use: Heavy Drug Use: none, marijuana Lives with: Family Lives In: Home Occupation: retired Physical Exam Vital Signs: Temperature: 98.6, Heart Rate: 91, Respiratory Rate: 18, BP: 125/78, Pulse Oximetry: 95, Weight: 59.100 Oxygen Flow Rate: 0 Pulse Oximetry Reflects: adequate oxygenation General Appearance: alert, WD/WN, mild distress (Injuring the pain) Skin: jaundice Skin The patient has bandages covering multiple biopsy/incision sites on both breasts. No active hemorrhaging. No signs of bacterial infection. No discharge Progress Results/Orders Results/Orders Completed Orders - VALE SANDOVAL Oxycodone Immed Release Tablet (Oxy Ir T (09/23/25 19:45) Vital Signs 09/23/25 17:51 Temp 98.6 Pulse 91 Resp 18 B/P (MAP) 125/78 Pulse Ox 95 O2 Flow Rate 0 Medical Decision Making Additional information obtaine: N/A Findings With the patient foreign oxycodone 5 mg p.o. here. I will give her a small amount for home with the instructions to follow up with the primary care physician and/or the surgeon who performed the biopsies for further pain management. Differential Dx:Considerations: Hepatitis Additional Comments Postprocedure pain. Breast biopsy. Departure Disposition: 01 HOME / SELF CARE / HOMELESS Impression: Primary Impression: Pain following surgery or procedure Condition: Stable Discharge Instructions: Breast Biopsy, Care After Additional Instructions: Take the medications as prescribed. Cold compresses to the sore areas. Follow up back up with the your primary care physician. Return to the ER for any worsening or concerning symptoms. Referrals: NO PRIMARY CARE PROVIDER (PCP) Prescriptions Oxycodone Hcl (Oxycodone Hcl) 5 Mg Tablet 1 TAB PO Q8H PRN for pain, #10 TAB Prov: VALE SANDOVAL 09/23/25 Signature Scribe Signature: No scribe Attestation: The note accurately reflects work and decisions made by me.Vale ARREGUIN 09/23/25 19:55 VALE SANDOVAL Sep 23, 2025 19:54
[2025-09-23] MEDS: oxyCODONE IR 5mg (immed. release) tablet PO ONE (19:55)
[2025-09-23 20:20] VITALS: TEMP 98.6
== END 2025-09-23 20:21 | disposition home or self-care (01) ==
LOC: ER 17:42
DX: G89.18 Other acute postprocedural pain (principal); I50.9 Heart failure, unspecified; F12.90 Cannabis use, unspecified, uncomplicated; Z88.2 Allergy status to sulfonamides; Z99.2 Dependence on renal dialysis; Z79.899 Other long term (current) drug therapy
CPT/HCPCS: 99283

== ENCOUNTER 2025-10-01 09:59 | Emergency (ER) | payer MEDICARE ==
[~2025-10-01] VITALS: Ht 162.6 cm; Wt 62.6 kg
[~2025-10-01 09:59] MED LIST changes: +OXYC-481 PO
[2025-10-01 10:09] VITALS: BP 129/69; PULSE 89; RESP 18; TEMP 98.7; O2SAT 95
--- NOTE | 2025-10-01 10:24 | Physician Documentation ---
History of Present Illness ~ Chief Complaint: Breast pain Stated Complaint: CELLULITIS Time Seen by MD: 10:24 Primary Medical Doctor: [facility] Patient is a very pleasant 60-year-old female that presents to the emergency department for evaluation of right-sided breast pain. Patient reports that she recently was diagnosed with breast cancer she is unsure which type. Patient underwent biopsies on the and then subsequent biopsies a few days after. Patient reports that she was placed on antibiotics due to developing some cellulitis post biopsy. Patient reports she developed some swelling in her face a few days after starting the antibiotic course that has gone down at this time. Patient reports that she feels like the swelling in the right breast has increased and she would just like to have it evaluated. And maybe have the antibiotic changed until she follows up with her primary care provider on the 07 of October. Patient also feels like she possibly has a UTI at this time. Patient denies fever chills nausea vomiting diarrhea. Patient denies any other symptoms at this time. Tetanus within 5 years?: No Medication Reconciliation Allergies: Coded Allergies: cephalexin (Verified Allergy, Intermediate, slight throat swelling, 10/01/25) Sulfa (Sulfonamide Antibiotics) (Verified Allergy, Unknown, ASEPTIC MENENGITIS, 10/01/25) Scheduled Carvedilol (Carvedilol), 1 TAB PO DAILY, (Reported) Clindamycin HCl (Clindamycin HCl), 1 CAP PO Q8H Furosemide (Furosemide), 1 TAB PO DAILY, (Reported) Lactulose (Lactulose), 50 ML PO QID, (Reported) Rifaximin (Xifaxan), 1 TAB PO BID, (Reported) Scheduled PRN Hydrocodone Bit/Acetaminophen 5/325 MG (Madison 5/325 MG), 1 TAB PO Q12H PRN for pain Hydroxyzine Pamoate (Hydroxyzine Pamoate), 1 CAP PO QID PRN for for anxiety/agitation, (Reported) Lorazepam (Ativan), 1 TAB PO Q12H PRN PRN for anxiety Methocarbamol (Methocarbamol), 1 TAB PO DAILY PRN for mild to moderate pain 1-6, (Reported) ONDANSETRON ODT 4mg tablet (Ondansetron Odt), 1 TAB SL Q8H PRN for nausea/ vomiting, (Reported) Oxycodone Hcl (Oxycodone Hcl), 1 TAB PO Q8H PRN for pain Past Medical History Past Medical History: Congestive Heart Failure, *GI/HEPATOBILIARY*, Cirrohsis, Liver Disease, Dialysis, Hernia, Renal Disease Past Surgical History: other Patient History: FH: colon cancer GRANDFATHER OR GRANDMOTHER FH: heart disease GRANDFATHER OR GRANDMOTHER Alcohol Use: Heavy Drug Use: none, marijuana Lives with: Family Lives In: Home Occupation: retired Review of Systems ROS As stated above in the HPI, otherwise all systems are reviewed and negative. Physical Exam Vital Signs: Temperature: 98.7, Source: Oral, Heart Rate: 89, Respiratory Rate: 18, BP: 129/69, Pulse Oximetry: 95, Weight: 62.600 Oxygen Flow Rate: 0 General Appearance VITALS: Reviewed and as above. GENERAL: Alert, no apparent distress. SKIN: Warm and dry, no rash, bruising tenderness and swelling noted to the right breast biopsy sites, unable to tell if the patient has erythema due to significant bruising at this time. NEURO: Oriented x4, No motor or sensory deficit PSYCH: Normal mood and affect, no agitation Progress Results/Orders Results/Orders Completed Orders - MARINA PECK Cbc/Diff (10/01/25 11:35) CMP (10/01/25 11:35) Man Diff (10/01/25 12:00) Diphenhydramine Capsule (Benadryl Capsul (10/01/25 13:50) Medications Received in ER Medications (Trade) Dose Ordered Sig/Ellen Route PRN Reason Start Time Stop Time Status Last Admin Dose Admin (Benadryl capsule) 25 mg ONCE ONCE PO 10/01/25 13:50 10/01/25 13:51 DC 10/01/25 13:53 25 MG Vital Signs 10/01/25 10:09 Temp 98.7 Pulse 89 Resp 18 B/P (MAP) 129/69 Pulse Ox 95 O2 Flow Rate 0 Laboratory Tests Test 10/01/25 10:20 10/01/25 12:00 Urine Specimen Description Cln catch midstream Urine Color Yellow Urine Clarity Clear Urine pH 6.5 Urine Specific [place] 1.010 Urine Protein Negative Urine Glucose (UA) Negative Urine Ketones Negative Urine Occult Blood Moderate H Urine Nitrite Negative Urine Bilirubin Small Urine Urobilinogen 0.2 Urine Leukocyte Esterase Trace H Urine RBC 3-10 Urine WBC 0-4 Urine Squamous Epithelial Cells Few Urine Bacteria Few Urine Culture Indicated Indicated Volume Urine Centrifuged 10 ml Urine Comment White Blood Count 2.0 L Red Blood Count 3.15 L Hemoglobin 10.6 L Hematocrit 32.4 L Mean Corpuscular Volume 102.6 H Mean Corpuscular Hemoglobin 33.7 H Mean Corpuscular Hemoglobin Concent 32.9 L Red Cell Distribution Width 18.5 H Platelet Count 68 L Mean Platelet Volume 8.6 Neutrophils (%) (Auto) 48.7 Lymphocytes (%) (Auto) 37.2 Monocytes (%) (Auto) 9.3 Eosinophils (%) (Auto) 4.0 Basophils (%) (Auto) 0.8 Neutrophils # (Auto) 1.0 L Lymphocytes # (Auto) 0.8 L Monocytes # (Auto) 0.2 Eosinophils # (Auto) 0.1 Basophils # (Auto) 0.0 CBC Comment Differential Total Cells Counted 100 Neutrophils % (Manual) 51.0 Band Neutrophils % 1.0 Lymphocytes % (Manual) 35.0 Monocytes % (Manual) 10.0 Eosinophils % (Manual) 3.0 Platelet Estimate Decreased Red Blood Cell Morphology Perf Basophilic Stippling Anisocytosis 2+ Macrocytosis 1+ Sodium Level 137 Potassium Level 3.9 Chloride Level 100 Carbon Dioxide Level 28.2 Anion Gap 9 Blood Urea Nitrogen 13 Creatinine 0.78 Estimated GFR/1.73 m2 75 BUN/Creatinine Ratio 16.7 Glucose Level 99 Calcium Level 9.0 Total Bilirubin 10.5 H Aspartate Amino Transf (AST/SGOT) 65 H Alanine Aminotransferase (ALT/SGPT) 18 Alkaline Phosphatase 139 H Total Protein 6.9 Albumin 2.5 L Globulin 4.4 H Albumin/Globulin Ratio 0.6 L Chemistry Comments Microbiology Date/Time Source Procedure Growth Status 10/01/25 10:57 Urine Clean Catch Midstream Urine Culture - Preliminary Culture received. Resulted Medical Decision Making Additional information obtaine: other Findings DISCHARGE MEDICAL DECISION MAKING Chief Complaint: Right breast pain and swelling post-biopsy History of Present Illness: 60-year-old female with recently diagnosed breast cancer (type unknown) who underwent breast biopsies on the with subsequent repeat biopsies a few days later. Patient was started on cephalexin for post-biopsy cellulitis. She developed facial swelling several days after initiating cephalexin, which has si nce resolved. Patient now presents with worsening right breast swelling and requests antibiotic change prior to her scheduled follow-up with her primary care provider at [facility] on October 07. Patient also reports possible urinary tract infection symptoms. Review of Systems: Denies fever, chills, nausea, vomiting, or diarrhea. Past Medical History: Breast cancer (type unknown) Baseline leukopenia (WBC 2, patient reports this is normal for her) Chronic hematuria (recent bladder ultrasound performed) Physical Examination: Right breast with increased swelling consistent with cellulitis. Diagnostic Studies: Laboratory values consistent with patient's baseline. WBC 2 (patient's baseline). Urinalysis with hematuria (patient's baseline per history). Assessment and Plan: 1. 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 [2-3] Given this hypersensitivity reaction and persistent cellulitis, antibiotic therapy requires modification. For nonpurulent cellulitis in patients with cephalosporin/penicillin allergy, clindamycin is the recommended alternative antibiotic. [1] Clindamycin provides excellent coverage against streptococci and methicillin-sensitive Staphylococcus aureus, the primary pathogens in post- procedural cellulitis. [4] Disposition: Discharge home on oral clindamycin 300-450 mg every 6-8 hours for 5-7 days. [1] 2. Baseline leukopenia Patient reports chronic leukopenia with WBC of 2, which is her baseline. Current laboratory values are consistent with her known baseline. No acute intervention required. This should be monitored by her primary care provider. 3. Chronic hematuria Patient reports baseline hematuria that has been previously evaluated with bladder ultrasound. Current urinalysis findings are consistent with her known baseline. Patient's symptoms do not clearly indicate acute urinary tract in fection in the setting of chronic hematuria. No antibiotic treatment for UTI initiated at this time. Patient should follow up with PCP if urinary symptoms worsen. Follow-up: Patient instructed to follow up with primary care provider at [facility] on October 07 as scheduled. Return precautions provided for worsening cellulitis, fever, spreading erythema, or systemic symptoms. Medication Allergy Update: Cephalexin added to allergy list (angioedema/facial swelling). Differential Dx:Considerations: Include: Breast abscess, Breast engorgement, Breast mass, Cancer, Lymphagitis, Other Departure Disposition: 01 HOME / SELF CARE / HOMELESS Impression: Primary Impression: Breast tenderness Additional Impressions: Cellulitis Anxiety Breast pain Condition: Stable Discharge Instructions: Breast Tenderness Additional Instructions: DISCHARGE INSTRUCTIONS Your Diagnosis: Infection (cellulitis) of the right breast after biopsy Why You Came to the Hospital: You came to the emergency department because of increased swelling and pain in your right breast after your recent breast biopsies. You also had facial swelling after starting your previous antibiotic (Keflex), which was likely an allergic reaction. What We Found: Your examination and lab tests showed cellulitis (skin infection) in your right breast. Your other lab values were at your normal baseline. Your Medications: Clindamycin - Antibiotic for your breast infection Take as prescribed until all pills are finished Take with a full glass of water and remain upright (sitting or standing) for at least 30 minutes after taking to prevent irritation of your esophagus [1] Important: Finish all the antibiotic even if you feel better. Stopping early can make the infection come back or make bacteria resistant to antibiotics [1] Call your doctor immediately if you develop severe diarrhea, bloody stools, or stomach cramps, even up to 2 months after finishing the antibiotic [1] Madison (Hydrocodone) - Pain medication Take as prescribed for pain Do not drive or operate machinery while taking this medication [2-3] Do not drink alcohol while taking this medication [3] Ativan (Lorazepam) 0.5 mg - Anti-anxiety medication Take once daily as prescribed Do not drive or operate machinery while taking this medication [2][4] Do not drink alcohol while taking this medication [4] IMPORTANT SAFETY WARNING: Taking Madison and Ativan together can cause serious side effects including extreme sleepiness, slowed breathing, and even . Use these medications exactly as prescribed and watch for excessive drowsiness or difficulty breathing. Do not take more than prescribed. [2-6] What to Do at Home: Keep your right breast elevated when possible to reduce swelling [7] Monitor the redness and swelling - it should start improving within 24-48 hours [8] You may still have some redness even after the infection is gone - this is normal [8] When to Call Your Doctor or Return to the Emergency Department: Fever (temperature over 100.4F) Worsening redness, swelling, or pain in your breast Red streaks spreading from the affected area Pus or drainage from the biopsy sites Severe diarrhea or bloody stools New facial swelling or difficulty breathing Extreme drowsiness or difficulty breathing while taking your medications Any new or concerning symptoms Follow-Up: You have an appointment with your primary care provider at [facility] on October 07 Do not miss this appointment - it is important for your breast cancer care and t o check that your infection has resolved Medication Allergy Update: Keflex (cephalexin) has been added to your allergy list due to the facial swelling you experienced. Discussed with the patient to not mix the Madison in the Ativan together or to take them around the same time as these can cause increased sedation. Referrals: NO PRIMARY CARE PROVIDER (PCP) Prescriptions Lorazepam (Ativan) 0.5 Mg Tablet 1 TAB PO Q12H PRN PRN for anxiety for 7 Days, #14 TAB 0 Refills Prov: MARINA PECK 10/01/25 Hydrocodone Bit/Acetaminophen 5/325 MG (Madison 5/325 MG) 5 Mg/325 Mg Tablet 1 TAB PO Q12H PRN for pain for 7 Days, #14 TAB Prov: MARINA PECK 10/01/25 Clindamycin HCl (Clindamycin HCl) 300 Mg Capsule 1 CAP PO Q8H for 10 Days, #30 CAP Prov: MARINA PECK 10/01/25 Education Educated: Patient Educated regarding: diagnosis, treatment, need for follow up Signature Scribe Signature: A Attestation: Scribed for Marina Peck by JULIO Mendoza . 10/01/25 13:31 MARINA PECK Oct 01, 2025 10:24
[2025-10-01 10:36] LABS: LEUKOCYTE ESTERASE ,URINE TRACE (Neg); NITRITES, URINE NEGATIVE (Neg); OCCULT BLOOD,URINE MODERATE (Neg)
[2025-10-01 10:44] LABS: UA COLLECTION TYPE CLN CATCH MIDSTREAM
[2025-10-01 10:57] LABS: SQUAMOUS EPITHELIAL CELL,UR FEW /LPF (FEW)
[2025-10-01 12:15] LABS: MEAN PLATELET VOLUME 8.6 FL (7.4-10.4); RED CELL DISTRIBUTION WIDTH 18.5 % (11.5-14.5)
[2025-10-01 12:47] LABS: CREATININE 0.78 MG/DL (0.40-0.90); TOTAL CARBON DIOXIDE 28.2 MMOL/L (24-32); eCRCL 66 ML/MIN; eGFR 75 ML/MIN
[2025-10-01 12:59] LABS: BANDS% (MANUAL) 1.0 % (0-10); EOSINOPHILS % (MANUAL) 3.0 % (0-6); LYMPHOCYTES % (MANUAL) 35.0 % (21-51); MONOCYTES % (MANUAL) 10.0 % (2-12); NEUTROPHILS % (MANUAL) 51.0 % (42-75); PLATELET ESTIMATE DECREASED
[2025-10-01] MEDS ORDERED: CLIN300C54 PO (13:27)
[2025-10-01] MEDS ORDERED: HYDR-3965 PO (13:27)
[2025-10-01] MEDS ORDERED: LORA-268 PO (13:29)
== END 2025-10-01 14:02 | disposition home or self-care (01) ==
LOC: ER 09:59
DX: N61.0 Mastitis without abscess (principal); F12.90 Cannabis use, unspecified, uncomplicated; I50.9 Heart failure, unspecified; F41.9 Anxiety disorder, unspecified; Z85.3 Personal history of malignant neoplasm of breast; Z88.1 Allergy status to other antibiotic agents; Z88.2 Allergy status to sulfonamides; Z79.899 Other long term (current) drug therapy
CPT/HCPCS: 36415; 80053; 81001; 85007; 85025; 87088; 99283; Q0163